=== PATIENT | female | born 1985 | race Caucasian/White ===

== ENCOUNTER 2020-06-28 11:21 | Emergency (ER) | payer MEDICAID, SELFPAY ==
[2020-06-28 11:45] VITALS: BP 163/94; PULSE 77; RESP 16; TEMP 36.8; O2SAT 99; BMI 61.2
--- NOTE | 2020-06-28 12:06 | HMH.EDUTC ---
[facility] [place] Disposition Clinical Impression: Labyrinthitis Qualifiers: Laterality: unspecified laterality Qualified Code(s): H83.09 - Labyrinthitis, unspecified ear Disposition: Home, Self-Care Condition on Discharge: Good Instructions: DI for Labyrinthitis Prescriptions: Meclizine HCl 25 mg PO Q8HP PRN 10 Days #30 tab PRN Reason: Dizziness Transmission Status: Pending to [id number] Referrals: Srinivasa Young JR, MD [Primary Care Provider] - Forms: Work/School Release Time of Disposition: 12:13 Medical Decision Making - Jay Inquiry Pt receiving controlled substance: No [facility] [place] HPI - General Stated complaint: dizzy Time Seen by Provider: 06/28/20 12:06 - History of Present Illness Provider Complaint: Dizziness and nausea when she woke up this am. Started when she rolled over to turn off alarm. [place] like she had gotten off the merry go round. It has improved. Has had one similar episode in the past that resolved on its own. Onset (ago): hour(s) (4) Location: head Relieving factors: none Exacerbating factors: none Associated symptoms: denies other symptoms Treatments prior to arrival: none - Related Data Home Medications Medication Instructions Recorded Confirmed Metoprolol Succinate [Metoprolol 200 mg PO DAILY 06/28/20 06/28/20 Succinate 200mg Tablet*] Omeprazole [Omeprazole 40mg 40 mg PO DAILY 06/28/20 06/28/20 Capsule] Previous Rx's Medication Instructions Recorded Meclizine HCl 25 mg PO Q8HP PRN 10 Days #30 tab 06/28/20 Allergies Allergy/AdvReac Type Severity Reaction Status Date / Time No Known Allergies Allergy Verified 03/28/20 16:23 [facility] History - Hepatitis A Screen Attestation statement:: This patient has been screened for Hepatitis A risk factors. I have reviewed the patient's past medical history: Yes Medical History: Reports:: Asthma, Gastroesophageal Reflux Disease(GERD), Hypertension Laterality Cases: Left: Other Other Surgeries: Yes: - Social History Smoking Status: Former smoker Alcohol Intake: never Occupational Status: employed Housing: house Household Members: family Family Hx:: Cancer, Diabetes, Hypertension, Stroke, Thyroid Disorder ROS Obtained: Yes All systems reviewed & no additional complaints - Neurologic Neurologic: Reports vertigo Physical Exam - General General appearance: alert, in no apparent distress - Head Head exam: normocephalic - Eye Eye exam: Present: PERRL - ENT ENT exam: Present: normal oropharynx - Respiratory Respiratory exam: Present: normal lung sounds bilaterally - Cardiovascular Cardiovascular exam: Present: regular rate, normal rhythm - Neurological Exam Neurological exam: Present: alert, oriented X3 - Psychiatric Psychiatric exam: Present: normal affect, normal mood - Skin Skin exam: Present: warm, dry, intact
[2020-06-28 12:18] VITALS: BP 163/94; PULSE 77; RESP 16; TEMP 36.8; O2SAT 99
== END 2020-06-28 12:20 | disposition home or self-care (01) ==
PROVIDERS: Emergency Provider Physician Assistant; PCP Family Medicine
DX: H83.09 Labyrinthitis, unspecified ear (principal); J45.909 Unspecified asthma, uncomplicated; K21.9 Gastro-esophageal reflux disease without esophagitis; I10 Essential (primary) hypertension; Z79.899 Other long term (current) drug therapy; Z87.891 Personal history of nicotine dependence
CPT/HCPCS: 99202; G0463

== ENCOUNTER 2020-10-01 13:03 | Emergency (ER) | payer MEDICAID, SELFPAY ==
[2020-10-01 13:03] VITALS: BP 151/64; PULSE 51; RESP 18; TEMP 36.7; O2SAT 98; BMI 61.2
--- NOTE | 2020-10-01 13:42 | XR_ITS ---
PROCEDURE: XR WRIST LT MIN 3V CLINICAL INDICATION: PAIN COMPARISON: No exams were available for comparison FINDINGS: No fracture or dislocation. No lytic or blastic change. There is normal mineralization. The joint spaces are well-preserved. No significant degenerative/arthritic changes. No erosive changes evident. Other findings:None. IMPRESSION: No acute findings. Dictated by: Dioni Castillo MD 10/01/2020 15:25 Dioni Castillo MD in [place] 10/01/2020 15:25
[2020-10-01 13:45] VITALS: BP 148/64; PULSE 76; RESP 14; TEMP 37.4; O2SAT 98; BMI 61.2
--- NOTE | 2020-10-01 14:41 | HMH.EDUTC ---
[facility] – [place] Disposition Clinical Impression: Left wrist pain Disposition: Home, Self-Care Condition on Discharge: Good Instructions: DI for Wrist Strain, DI for Wrist Pain Additional Instructions: Rest the extremity, a Elevate the extremity as tolerated while you are resting. Take ibuprofen for pain. I sent in a prescription to your pharmacy. Follow up with Dr. Cook (orthopedics). I put in a referral but you need to call his office and schedule an appointment. Follow up with your regular doctor. GO TO THE ER FOR ANY WORSENING SYMPTOMS Prescriptions: Ibuprofen [Ibuprofen 600mg Tablet] 600 mg PO Q6HP PRN #30 tab PRN Reason: Mild Pain Transmission Status: Received by [facility] Referrals: Srinivasa Young JR, MD [Primary Care Provider] - Oliver Cook MD [Staff Physician] - Time of Disposition: 14:42 Medical Decision Making - Medical Records Medical records reviewed: No: I reviewed the patient's medical records. - Jay Inquiry Pt receiving controlled substance: No Vital Signs: 10/01/20 13:03 10/01/20 13:45 10/01/20 14:43 Temperature 98.1 F 99.3 F 99.3 F Temperature Source Oral Tympanic Oral Pulse Rate 76 Pulse Rate [Right] 51 L 76 Respiratory Rate 18 14 14 Blood Pressure 148/64 H Blood Pressure [Right Arm] 151/64 H 148/64 H Blood Pressure Mean [Right Arm] 93 92 Blood Pressure Source Automatic Cuff Blood Pressure Source [Right Arm] Automatic Cuff Blood Pressure Position Sitting Blood Pressure Position [Right Arm] Sitting 02 Sat by Pulse Oximetry 98 98 Oxygen Delivery Method Room Air Room Air Orders (Tests/Meds): ORDERS Category Date Time Status XR wrist LT min 3V Stat Exams 10/01/20 13:42 Taken - Radiology Data #1 Image(s): Wrist Image Reviewed: Yes I reviewed the patient's radiology image, Yes I have reviewed radiologist's interpretation Preliminary Findings: No Fracture Seen [facility] [place] HPI - General Stated complaint: Lt wrist pain, unknown origin Time Seen by Provider: 10/01/20 13:05 Mode of Arrival: Ambulatory Source of Information: Patient Limitations: No Limitations Description of Symptoms (Recalled from Triage Doc. by RN): Hurt left wrist. Unknown origin. HEENT Symptoms (Recalled from RN notes): No Resp Symptoms (Recalled from RN notes): No Skin Symptoms (Recalled from RN notes): No MS Symptoms (Recalled from RN notes): Yes Functional Status (Recalled from RN notes): wnl - History of Present Illness Provider Complaint: She states that for the past 2 days she has had left wrist pain. She denies any known injury. She states that using her hand and moving her wrist makes the pain worse. - Related Data Home Medications Medication Instructions Recorded Confirmed Metoprolol Succinate [Metoprolol 200 mg PO DAILY 06/28/20 06/28/20 Succinate 200mg Tablet*] Omeprazole [Omeprazole 40mg 40 mg PO DAILY 06/28/20 06/28/20 Capsule] Previous Rx's Medication Instructions Recorded Meclizine HCl 25 mg PO Q8HP PRN 10 Days #30 tab 06/28/20 Ibuprofen [Ibuprofen 600mg 600 mg PO Q6HP PRN #30 tab 10/01/20 Tablet] Allergies Allergy/AdvReac Type Severity Reaction Status Date / Time No Known Allergies Allergy Verified 03/28/20 16:23 - Worker's Comp Is this a Worker's Comp case?: No [facility] History - Hepatitis A Screen Drug use history?: No High risk sexual behaviors?: No History of sexually transmitted infection?: No Currently employed?: No Childcare worker?: No Do you have indoor plumbing?: Yes Do you have electricity?: Yes Attestation statement:: This patient has been screened for Hepatitis A risk factors. I have reviewed the patient's past medical history: Yes Medical History: Reports:: Asthma, Gastroesophageal Reflux Disease(GERD), Hypertension Laterality Cases: Left: Other Other Surgeries: Yes: - Social History Smoking Status: Former smoker Alcohol Intake: never Occupational
[2020-10-01 14:43] VITALS: BP 148/64; PULSE 76; RESP 14; TEMP 37.4; O2SAT 98
== END 2020-10-01 14:57 | disposition home or self-care (01) ==
PROVIDERS: Emergency Provider Nurse Practitioner Family; PCP Family Medicine
DX: M25.532 Pain in left wrist (principal); K21.9 Gastro-esophageal reflux disease without esophagitis; I10 Essential (primary) hypertension; J45.909 Unspecified asthma, uncomplicated
CPT/HCPCS: 73110; 99203; G0463

== ENCOUNTER 2021-02-17 14:01 | Emergency (ER) | payer MEDICAID, SELFPAY ==
[2021-02-17 16:15] VITALS: BP 144/95; PULSE 75; RESP 18; TEMP 37; O2SAT 100; BMI 68.6
[2021-02-17 16:59] VITALS: BP 144/95; PULSE 75; RESP 18; TEMP 37; O2SAT 100
--- NOTE | 2021-03-06 11:09 | HMH.EDUTC ---
[facility] – [place] Disposition Clinical Impression: Exposure to COVID-19 virus Disposition: Home, Self-Care Condition on Discharge: Good Instructions: DI for COVID-19 (Suspected or Confirmed ), Coronavirus Disease 2019, Preventing the Spread of Coronavirus Discharge Instructions Additional Instructions: *Monitor Temp, Over the counter Motrin or Tylenol as directed/as needed Tylenol every 4 hours and Motrin every 6 hours (as long as your family doctor has told you that you can take it) for fever or pain. and straight to ER if unable to lower temp less than 101.0 after medication given *Warm salt water gargles may help to soothe the throat *Throat Lozenges *Warm fluids like tea with honey may help to soothe the throat *Sleep elevated *Humidifier/Vaporizer Follow up IMMEDIATELY for new or worsening symptoms or no Noticeable improvement over the next 48-72 hours. 911 for difficulty breathing or swallowing You were tested for today for COVID19 your test result should be back in the next 24-48 hours, You was given instructions to [facility] for your results if you do not have internet access you may call the [facility] You was given a handout with instructions for Self Quarantine and Self isolation for while you wait on test results and what to do if they are positive If you are positive the Health Dept will be contacting you also Make sure to take your Vitamins Vit. C Vit D and Zinc if you can take them Referrals: Srinivasa Young JR, MD [Primary Care Provider] - As needed Forms: Work/School Release Medical Decision Making - Jay Inquiry Pt receiving controlled substance: No Jay was queried for this patient: No Vital Signs: 02/17/21 16:15 02/17/21 16:59 Temperature 98.6 F 98.6 F Temperature Source Oral Pulse Rate 75 Pulse Rate [Right Brachial] 75 Respiratory Rate 18 18 Blood Pressure 144/95 H Blood Pressure [Right Arm] 144/95 H Blood Pressure Mean [Right Arm] 111 Blood Pressure Source [Right Arm] Automatic Cuff Blood Pressure Position [Right Arm] Sitting 02 Sat by Pulse Oximetry 100 Oxygen Delivery Method Room Air [facility] [place] HPI - General Stated complaint: covid test/exposure Time Seen by Provider: 02/17/21 16:35 Mode of Arrival: Ambulatory Source of Information: Patient Limitations: No Limitations Description of Symptoms (Recalled from Triage Doc. by RN): COVID TEST D/T EXPOSURE HEENT Symptoms (Recalled from RN notes): No Resp Symptoms (Recalled from RN notes): No Skin Symptoms (Recalled from RN notes): No MS Symptoms (Recalled from RN notes): No Functional Status (Recalled from RN notes): WNL - History of Present Illness Provider Complaint: Patient states that she was recently around someone that tested positive for COVID and she is wanting to get tested - Related Data Home Medications Medication Instructions Recorded Confirmed Metoprolol Succinate [Metoprolol 200 mg PO DAILY 06/28/20 06/28/20 Succinate 200mg Tablet*] Omeprazole [Omeprazole 40mg 40 mg PO DAILY 06/28/20 06/28/20 Capsule] Previous Rx's Medication Instructions Recorded Meclizine HCl 25 mg PO Q8HP PRN 10 Days #30 tab 06/28/20 Ibuprofen [Ibuprofen 600mg 600 mg PO Q6HP PRN #30 tab 10/01/20 Tablet] Allergies Allergy/AdvReac Type Severity Reaction Status Date / Time No Known Allergies Allergy Verified 03/28/20 16:23 - Worker's Comp Is this a Worker's Comp case?: No [facility] History - Hepatitis A Screen Drug use history?: No High risk sexual behaviors?: No History of sexually transmitted infection?: No Currently employed?: No Childcare worker?: No Do you have indoor plumbing?: Yes Do you have electricity?: Yes Attestation statement:: This patient has been screened for Hepatitis A risk factors. I have reviewed the patient's past medical history: Yes Medical History: Reports:: Asthma, Gastroesophageal Reflux Disease(GERD), Hypertension Laterality Cases: Left: Other Other Surgeries
== END 2021-02-17 17:05 | disposition home or self-care (01) ==
PROVIDERS: Emergency Provider Nurse Practitioner; PCP Family Medicine
DX: Z20.822 Contact with and (suspected) exposure to COVID-19 (principal)
CPT/HCPCS: 99202; G0463; U0003

== ENCOUNTER 2021-04-16 17:17 | Emergency (ER) | payer MEDICAID, SELFPAY ==
--- NOTE | 2021-04-16 17:21 | XR_ITS ---
PROCEDURE INFORMATION: Exam: XR Left Knee Exam date and time: 04/16/2021 5:21 PM Age: 35 years old Clinical indication: Pain; Knee; Left; Additional info: Knee pain TECHNIQUE: Imaging protocol: XR Left knee. Views: 3 views. Total images: 3 COMPARISON: No relevant prior studies available. FINDINGS: Bones/joints: No fracture. No blastic or lytic lesions. No significant joint effusion is present. Joint spaces are well-maintained. Soft tissues: No periostitis or osteolysis. No gross soft tissue abnormalities. No foreign bodies. Other findings: Normal alignment. IMPRESSION: No acute findings.
[2021-04-16 17:25] VITALS: BP 164/94; PULSE 89; RESP 16; TEMP 36.9; O2SAT 98; BMI 64.2
--- NOTE | 2021-04-16 18:13 | HMH.EDUTC ---
[facility] [place] Disposition Clinical Impression: Knee sprain Qualifiers: Encounter type: initial encounter Involved ligament of knee: unspecified ligament Laterality: left Qualified Code(s): S83.92XA - Sprain of unspecified site of left knee, initial encounter Disposition: Home, Self-Care Condition on Discharge: Good Instructions: How To Perform RICE (Rest, Ice, Compress, Elevate), DI for Knee Pain, Ibuprofen Additional Instructions: *weight bearing as tolerated *RICE, Rest the extremity, Ice 15-20 minutes 3-4 times daily, Compress- wear the ady wrap as discussed as much as possible to help reduce swelling and pain, Elevate the extremity when at rest *Ady wrap is for support and help control swelling, use it except in the shower. Be sure that is not to tight but not to loose either *Elevate when resting *Over the counter Ibuprofen every 6-8 hours as needed for pain an inflammation. If need something more can take Tylenol in between doses of Ibuprofen to help Immediately follow up with your family doctor for new or worsening of symptoms, or no noticeable improvement over the next 3-5 days Return if needed Warm soaks in warm water and epson salt may help with pain Straight to ER if any life threatening symptoms Referrals: Srinivasa Young JR, MD [Primary Care Provider] - As needed Forms: Work/School Release Time of Disposition: 18:52 Medical Decision Making - Jay Inquiry Pt receiving controlled substance: No Jay was queried for this patient: No Vital Signs: 04/16/21 17:25 04/16/21 18:52 Temperature 98.4 F 98.4 F Temperature Source Oral Pulse Rate 89 Pulse Rate [Right Brachial] 89 Respiratory Rate 16 16 Blood Pressure 164/94 H Blood Pressure [Right Arm] 164/94 H Blood Pressure Mean [Right Arm] 117 Blood Pressure Source [Right Arm] Automatic Cuff Blood Pressure Position [Right Arm] Sitting 02 Sat by Pulse Oximetry 98 Oxygen Delivery Method Room Air - Radiology Data #1 Image(s): Knee Image Reviewed: Yes I have reviewed radiologist's interpretation Preliminary Findings: No Fracture Seen IMPRESSION: No acute findings. [facility] [place] HPI - General Stated complaint: left knee pain Time Seen by Provider: 04/16/21 18:13 Mode of Arrival: Ambulatory Source of Information: Patient Limitations: No Limitations Description of Symptoms (Recalled from Triage Doc. by RN): PATIENT C/O LEFT KNEE PAIN. REPORTS THAT SHE TWISTED IT WHILE WALKING A DOG 1.5 WEEKS. AGO HEENT Symptoms (Recalled from RN notes): No Resp Symptoms (Recalled from RN notes): No Skin Symptoms (Recalled from RN notes): No MS Symptoms (Recalled from RN notes): Yes Functional Status (Recalled from RN notes): WNL - History of Present Illness Provider Complaint: Patient states that she was walking the dog about 1.5-2 weeks ago when she twisted her left knee States that ever since she has been having pain on and off with certain ways she moves it States that she was still having pain today so she came in to get it checked out - Related Data Home Medications Medication Instructions Recorded Confirmed Metoprolol Succinate [Metoprolol 200 mg PO DAILY 06/28/20 06/28/20 Succinate 200mg Tablet*] Omeprazole [Omeprazole 40mg 40 mg PO DAILY 06/28/20 06/28/20 Capsule] Previous Rx's Medication Instructions Recorded Meclizine HCl 25 mg PO Q8HP PRN 10 Days #30 tab 06/28/20 Ibuprofen [Ibuprofen 600mg 600 mg PO Q6HP PRN #30 tab 10/01/20 Tablet] Allergies Allergy/AdvReac Type Severity Reaction Status Date / Time No Known Allergies Allergy Verified 03/28/20 16:23 - Worker's Comp Is this a Worker's Comp case?: No [facility] History - Hepatitis A Screen Drug use history?: No High risk sexual behaviors?: No History of sexually transmitted infection?: No Currently employed?: No Childcare worker?: No Do you have indoor plumbing?: Yes Do you have electricity?: Yes Attestation statement:: This patient has been screened for He
[2021-04-16 18:52] VITALS: BP 164/94; PULSE 89; RESP 16; TEMP 36.9; O2SAT 98
== END 2021-04-16 19:05 | disposition home or self-care (01) ==
PROVIDERS: Emergency Provider Nurse Practitioner; PCP Family Medicine
DX: S83.92XA Sprain of unspecified site of left knee, initial encounter (principal); J45.909 Unspecified asthma, uncomplicated; K21.9 Gastro-esophageal reflux disease without esophagitis; I10 Essential (primary) hypertension; X50.1XXA Overexertion from prolonged static or awkward postures, initial encounter; Y93.K1 Activity, walking an animal; Y92.89 Other specified places as the place of occurrence of the external cause
CPT/HCPCS: 73562; 99202; G0463

== ENCOUNTER 2021-04-30 18:32 | Emergency (ER) | payer MEDICAID, SELFPAY ==
[2021-04-30 18:35] VITALS: BP 200/100; PULSE 96; RESP 18; TEMP 37.5; O2SAT 98; BMI 64.0
--- NOTE | 2021-04-30 19:04 | HMH.EDUTC ---
[facility] [place] Disposition Clinical Impression: Viral upper respiratory illness Disposition: Home, Self-Care Condition on Discharge: Good Instructions: DI for Viral Upper Respiratory Infection -- Adult, DI for Cough -- Adult Additional Instructions: *Monitor Temp, Over the counter Motrin or Tylenol as directed/as needed Tylenol every 4 hours and Motrin every 6 hours (as long as your family doctor has told you that you can take it) for fever or pain. and straight to ER if unable to lower temp less than 101.0 after medication given *Warm salt water gargles may help to soothe the throat *Throat Lozenges *Warm fluids like tea with honey may help to soothe the throat *Sleep elevated *Humidifier/Vaporizer Over the counter Coricidin HBP cough and cold may help with your cough and cold symptoms Your throat swab was sent for culture. Those results are typically sent to your primary care. Be sure to follow up in 2-3 days with your family doctor/primary care physician if no improvement so they can review those result and treat if necessary. If you don?t have a primary care doctor, I recommend you get one but in the mean time, you will have to return to a walk in clinic Follow up IMMEDIATELY for new or worsening symptoms or no Noticeable improvement over the next 48-72 hours. 911 for difficulty breathing or swallowing You were tested for today for COVID19 your test result should be back in the next 24-48 hours, you may check your results on the [facility] my health portal if you have trouble logging on or viewing your results you may call You was given a handout with instructions for Self Quarantine and Self isolation for while you wait on test results and what to do if they are positive If you are positive the Health Dept will be contacting you also Make sure to take your Vitamins Vit. C Vit D and Zinc if you can take them Follow up with your Family Doctor as soon as possible for re-evaluation of blood pressure Referrals: Srinivasa Young JR, MD [Primary Care Provider] - As needed Forms: Work/School Release Time of Disposition: 19:13 Medical Decision Making - Jay Inquiry Pt receiving controlled substance: No Jay was queried for this patient: No Vital Signs: 04/30/21 18:35 Temperature 99.5 F Temperature Source Oral Pulse Rate [Left Brachial] 96 H Respiratory Rate 18 Blood Pressure [Left Arm] 200/100 H Blood Pressure Mean [Left Arm] 133 Blood Pressure Source [Left Arm] Automatic Cuff Blood Pressure Position [Left Arm] Sitting 02 Sat by Pulse Oximetry 98 Oxygen Delivery Method Room Air - Lab Data Lab results reviewed: Yes: I reviewed the patient's lab results. [facility] [place] HPI - General Stated complaint: fever, chills, runny nose, congestion Time Seen by Provider: 04/30/21 19:04 Mode of Arrival: Ambulatory Source of Information: Patient Limitations: No Limitations Description of Symptoms (Recalled from Triage Doc. by RN): PATIENT C/O FEVER, CHILLS, RUNNY NOSE, DRY COUGH, CONGESTION AND HEADACHE THAT STARTED LAST NIGHT HEENT Symptoms (Recalled from RN notes): Yes Resp Symptoms (Recalled from RN notes): Yes Skin Symptoms (Recalled from RN notes): No MS Symptoms (Recalled from RN notes): No Functional Status (Recalled from RN notes): WNL - History of Present Illness Provider Complaint: Patient states that she started feeling bad yesterday States that she has been having cough, runny nose, scratchy throat nasal congestion and headache States that today she was still feeling bad so she came in to get checked States that she feels like she may have the flu - Related Data Home Medications Medication Instructions Recorded Confirmed Metoprolol Succinate [Metoprolol 200 mg PO DAILY 06/28/20 04/30/21 Succinate 200mg Tablet*] Omeprazole [Omeprazole 40mg 40 mg PO DAILY 06/28/20 04/30/21 Capsule] Allergies Allergy/AdvReac Type Severity Reaction Status Date / Time No Known Allergies Allergy Verified 03/28/20 16:23
[2021-04-30 19:06] LABS: UTC Influenza A Antigen Negative (Negative); UTC Strep Screen (Rapid) Negative (Negative)
[2021-04-30 19:07] LABS: UTC Influenza B Antigen Negative (Negative)
[2021-04-30 19:11] VITALS: BP 153/93; PULSE 96; RESP 18; TEMP 37.5; O2SAT 98
== END 2021-04-30 19:24 | disposition home or self-care (01) ==
PROVIDERS: Emergency Provider Nurse Practitioner; PCP Family Medicine
DX: J06.9 Acute upper respiratory infection, unspecified (principal); K21.9 Gastro-esophageal reflux disease without esophagitis; I10 Essential (primary) hypertension; J45.909 Unspecified asthma, uncomplicated
CPT/HCPCS: 87804; 87880; 99203; G0463

== ENCOUNTER 2021-05-03 15:27 | Emergency (ER) | payer MEDICAID, SELFPAY ==
[2021-05-03 15:51] VITALS: BP 147/86; PULSE 81; RESP 18; TEMP 37.1; O2SAT 95; BMI 64.6
[2021-05-03 16:03] VITALS: BP 147/86; PULSE 81; RESP 18; TEMP 37.1
[2021-05-03 16:08] LABS: UTC Strep Screen (Rapid) Negative (Negative)
--- NOTE | 2021-05-03 16:08 | HMH.EDUTC ---
[facility] [place] Impression: Viral syndrome Disposition: Home, Self-Care Condition on Discharge: Good Instructions: DI for Viral Syndrome, DI for COVID-19 (Suspected or Confirmed ), Preventing the Spread of Coronavirus Discharge Instructions Additional Instructions: Drink plenty of fluids. Take tylenol or ibuprofen for pain or fever. Take the medications as directed. Follow up with your regular doctor. GO TO THE ER FOR ANY WORSENING SYMPTOMS Quarantine until you know the results of your covid-19 test. If it is positive, the health department should call you and give you further instructions about your length of Quarantine and other things. Notify your school or workplace of your results and follow their instructions regarding return to work/school. Prescriptions: Ondansetron [Zofran 4mg ODT] 4 mg PO Q8HP PRN #12 tab PRN Reason: Nausea Transmission Status: Received by [facility] Referrals: Srinivasa Young JR, MD [Primary Care Provider] - Forms: Work/School Release Time of Disposition: 17:02 Medical Decision Making - Medical Records Medical records reviewed: No: I reviewed the patient's medical records. - Jay Inquiry Pt receiving controlled substance: No Vital Signs: 05/03/21 15:51 05/03/21 16:03 Temperature 98.7 F 98.7 F Temperature Source Oral Pulse Rate 81 Pulse Rate [Left] 81 Respiratory Rate 18 18 Blood Pressure 147/86 H Blood Pressure [Right Arm] 147/86 H Blood Pressure Mean [Right Arm] 106 02 Sat by Pulse Oximetry 95 - Lab Data Lab results reviewed: Yes: I reviewed the patient's lab results. Lab Results 05/03/21 15:56: Chlamy pneumoniae PCR Not detected, Adenovirus (PCR) Not detected, B. pertussis DNA (PCR) Not detected, Coronavirus OC43 (PCR) Not detected, Coronavirus HKU1 (PCR) Not detected, Coronavirus 229E (PCR) Not detected, SARS-CoV-2 (PCR) Detected A, Coronavirus NL63 (PCR) Not detected, Human Metapneumovir PCR Not detected, Influenza A (H1) PCR Not detected, Influ A (H1N1/09) PCR Not detected, Influenza A (H3) PCR Not detected, Influenza Type A (PCR) Not detected, Influenza Type B (PCR) Not detected, M. pneumoniae (PCR) Not detected, Parainfluenza 1 (PCR) Not detected, Parainfluenza 2 (PCR) Not detected, Parainfluenza 3 (PCR) Not detected, Parainfluenza 4 (PCR) Not detected, RSV (PCR) Not detected, Entero/Rhino (PCR) Not detected 05/03/21 16:00: Strep Scn Rapid Clinic Negative Orders (Tests/Meds): ORDERS Category Date Time Status Strep Screen Confirmation Stat Micro 05/03/21 16:[address] [facility] [place] - General Stated complaint: covid test negative , getting sicker Time Seen by Provider: 05/03/21 16:08 Mode of Arrival: Ambulatory Source of Information: Patient Limitations: No Limitations Description of Symptoms (Recalled from Triage Doc. by RN): pt c/o sore throat, cough, soa, loss of taste and smell. pt was exposed to covid five days ago. pt tested negative for covid a few days ago. however, pt states she is continually feeling worse. HEENT Symptoms (Recalled from RN notes): Yes (sore throat) Resp Symptoms (Recalled from RN notes): Yes (soa and cough) Skin Symptoms (Recalled from RN notes): No MS Symptoms (Recalled from RN notes): No Functional Status (Recalled from RN notes): wnl - History of Present Illness Provider Complaint: She states that she is feeling worse since her last visit here last week. She was tested for covid-19 last week and it was negative. She was started on azithromycin and oral steroids then. She has took them as prescribed and she states that she is feeling worse instead of better. She has a history of asthma. She is using her inhalers as prescribed. She denies shortness of breath. - Related Data Home Medications Medication Instructions Recorded Confirmed Metoprolol Succinate [Metoprolol 200 mg PO DAILY 06/28/20 04/30/21 Succinate 200mg Tablet*] Omeprazole [Omeprazole 40mg 40 m
[2021-05-03 16:15] LABS: Adenovirus,PCR Not Detected (NotDetected); Bordetella Pertussis Not Detected (NotDetected); Chlamydophila Pneumoniae, PCR Not Detected (NotDetected); Coronavirus 229E Not Detected (NotDetected); Coronavirus NL63 Not Detected (NotDetected); Coronavirus OC43 Not Detected (NotDetected); Coronovirus HKU1,PCR Not Detected (NotDetected); Human Metapneumovirus Not Detected (NotDetected); Influenza A, PCR Not Detected (NotDetected); Influenza AH1, 2009 Not Detected (NotDetected); Influenza AH1, PCR Not Detected (NotDetected); Influenza AH3,PCR Not Detected (NotDetected); Influenza B, PCR Not Detected (NotDetected); Mycoplasma Pneumoniae, PCR Not Detected (NotDetected); Parainfluenza 1, PCR Not Detected (NotDetected); Parainfluenza 2, PCR Not Detected (NotDetected); Parainfluenza 3, PCR Not Detected (NotDetected); Parainfluenza 4, PCR Not Detected (NotDetected); Respiratory Syncytial Virus Not Detected (NotDetected); Rhinovirus/Enterovirus Not Detected (NotDetected)
[2021-05-03 18:33] LABS: Coronavirus 19, PCR Detected (NotDetected)
== END 2021-05-03 17:11 | disposition home or self-care (01) ==
PROVIDERS: Emergency Provider Nurse Practitioner Family; PCP Family Medicine
DX: U07.1 COVID-19 (principal); B34.9 Viral infection, unspecified; J45.909 Unspecified asthma, uncomplicated; K21.9 Gastro-esophageal reflux disease without esophagitis; I10 Essential (primary) hypertension
CPT/HCPCS: 87581; 87632; 87798; 87880; 99203; C9803; G0463; U0003; U0005

== ENCOUNTER → 2021-05-12 18:02 | Outpatient (CLI) | payer MEDICAID, SELFPAY ==
--- NOTE | 2021-05-14 12:47 | PC.NURSE ---
notified pt of positive covid result at this time
== END ==
PROVIDERS: PCP Family Medicine; Visit Provider Nurse Practitioner Family
DX: U07.1 COVID-19 (principal)
CPT/HCPCS: C9803; U0003; U0005

== ENCOUNTER 2021-05-28 16:07 | Emergency (ER) | payer MEDICAID, SELFPAY ==
[2021-05-28 16:25] VITALS: BP 163/97; PULSE 86; RESP 19; TEMP 36.8; O2SAT 98; BMI 59.5
--- NOTE | 2021-05-28 16:54 | HMH.EDUTC ---
[facility] [place] Clinical Impression: Ear problem Qualifiers: Laterality: bilateral Qualified Code(s): H93.93 - Unspecified disorder of ear, bilateral Disposition: Home, Self-Care Condition on Discharge: Good Instructions: Methylprednisolone, Fluticasone Nasal [place] Additional Instructions: Take medication as prescribed Follow up with Family Doctor if no improvement or any worsening of symptoms Return if needed Straight to ER if any life threatening symptoms Prescriptions: Fluticasone Propionate [Flonase 50mcg nasal spray 16gm] 1 spr NS DAILY #1 each Transmission Status: Pending to [facility] methylPREDNISolone [Medrol 4mg tab] 4 mg PO DIRECTED #21 tab Transmission Status: Pending to [facility] Referrals: Sriniavsa Young JR, MD [Primary Care Provider] - As needed Time of Disposition: 16:58 Medical Decision Making - Jay Inquiry Pt receiving controlled substance: No Jay was queried for this patient: No Vital Signs: 05/28/21 16:25 Temperature 98.2 F Temperature Source Oral Pulse Rate [Right Brachial] 86 Respiratory Rate 19 Blood Pressure [Right Arm] 163/97 H Blood Pressure Mean [Right Arm] 119 Blood Pressure Source [Right Arm] Automatic Cuff Blood Pressure Position [Right Arm] Sitting 02 Sat by Pulse Oximetry 98 Oxygen Delivery Method Room Air Medical Decision Narrative: Patient reports that she has taken Medrol dose pack in the past without complication or reactions [facility] [place] - General Stated complaint: muffled hearing in ears/stopped up Time Seen by Provider: 05/28/21 16:54 Mode of Arrival: Ambulatory Source of Information: Patient Limitations: No Limitations Description of Symptoms (Recalled from Triage Doc. by RN): PATIENT C/O BILATERAL EAR PAIN X 2 DAYS HEENT Symptoms (Recalled from RN notes): Yes Resp Symptoms (Recalled from RN notes): No Skin Symptoms (Recalled from RN notes): No MS Symptoms (Recalled from RN notes): No Functional Status (Recalled from RN notes): WNL - History of Present Illness Provider Complaint: Patient states that she feels like she has some fluid in her ears or they are stopped up States that she hasnt been able to hear well and they feel full so she came in to get checked - Related Data Home Medications Medication Instructions Recorded Confirmed Metoprolol Succinate [Metoprolol 200 mg PO DAILY 06/28/20 05/28/21 Succinate 200mg Tablet*] Omeprazole [Omeprazole 40mg 40 mg PO DAILY 06/28/20 05/28/21 Capsule] Previous Rx's Medication Instructions Recorded Azithromycin [Z-Kenneth 250mg Tab] 250 mg PO DIRECTED #6 tab 05/01/21 methylPREDNISolone [Medrol 4mg 4 mg PO DIRECTED #21 tab 05/01/21 tab] Ondansetron [Zofran 4mg ODT] 4 mg PO Q8HP PRN #12 tab 05/03/21 Fluticasone Propionate [Flonase 1 spr NS DAILY #1 each 05/28/21 50mcg nasal spray 16gm] methylPREDNISolone [Medrol 4mg 4 mg PO DIRECTED #21 tab 05/28/21 tab] Allergies Allergy/AdvReac Type Severity Reaction Status Date / Time No Known Allergies Allergy Verified 03/28/20 16:23 - Worker's Comp Is this a Worker's Comp case?: No [facility] History - Hepatitis A Screen Drug use history?: No High risk sexual behaviors?: No History of sexually transmitted infection?: No Currently employed?: No Childcare worker?: No Do you have indoor plumbing?: Yes Do you have electricity?: Yes Attestation statement:: This patient has been screened for Hepatitis A risk factors. I have reviewed the patient's past medical history: Yes Medical History: Reports:: Asthma, Gastroesophageal Reflux Disease(GERD), Hypertension Laterality Cases: Left: Other Other Surgeries: Yes: - Social History Smoking Status: Former smoker Alcohol Intake: never Occupational Status: other Housing: house Household Members: family Family Hx:: Cancer, Diabetes, Hypertension, Stroke, Thyroid Disorder ROS Obtained: Yes All systems reviewed & no
[2021-05-28 17:15] VITALS: BP 163/97; PULSE 86; RESP 19; TEMP 36.8; O2SAT 98
== END 2021-05-28 17:19 | disposition home or self-care (01) ==
PROVIDERS: Emergency Provider Nurse Practitioner; PCP Family Medicine
DX: H92.03 Otalgia, bilateral (principal); H93.93 Unspecified disorder of ear, bilateral; J45.909 Unspecified asthma, uncomplicated; I10 Essential (primary) hypertension; K21.9 Gastro-esophageal reflux disease without esophagitis; Z79.899 Other long term (current) drug therapy
CPT/HCPCS: 99202; G0463

== ENCOUNTER 2021-08-07 00:02 | Emergency (ER) | payer MEDICAID, SELFPAY ==
[2021-08-07 00:05] VITALS: BP 172/80; PULSE 89; RESP 16; TEMP 36.9; O2SAT 99; BMI 64.2
[2021-08-07 00:37] VITALS: BMI 64.2
--- NOTE | 2021-08-07 00:46 | HMH.EDHA ---
ED Disposition Clinical Impression: Sinusitis Qualifiers: Sinusitis location: maxillary Chronicity: acute Recurrence: not specified as recurrent Qualified Code(s): J01.00 - Acute maxillary sinusitis, unspecified Disposition: Home, Self-Care Condition on Discharge: Good Instructions: DI for Sinusitis Additional Instructions: use meds and see pcp for follow up Prescriptions: cephALEXin [cephALEXin 500mg capsule*] 500 mg PO TID #30 cap Transmission Status: Pending to [facility] predniSONE [Prednisone 20mg Tab] 20 mg PO BID #10 tab Transmission Status: Pending to [facility] Referrals: Srinivasa Young JR, MD [Primary Care Provider] - - Critical Care Critical Care Time: No Attestation: On 08/07/21, the high probability of a clinically significant, sudden or life threatening deterioration of the following system(s) required my full and direct attention, intervention and personal management. The time I documented below is in addition to time spent performing reported procedures but includes the following listed in this critical care notation. Medical Decision Making - Medical Records Medical records reviewed: Yes: I reviewed the patient's medical records. - Jay Inquiry Pt receiving controlled substance: No Vital Signs: 08/07/21 00:05 Temperature 98.4 F Temperature Source Oral Pulse Rate [Left] 89 Respiratory Rate 16 Blood Pressure [Left Arm] 172/80 H Blood Pressure Mean [Left Arm] 110 02 Sat by Pulse Oximetry 99 - Lab Data Lab results reviewed: Yes: I reviewed the patient's lab results. Lab Results 08/07/21 01:05: WBC 7.9, RBC 4.11 L, Hgb 10.5 L, Hct 32.9 L, MCV 80.0 L, MCH 25.7 L, MCHC 32.1, RDW 16.6, Plt Count 226, MPV 7.1 L, Neut % (Auto) 70.4, Lymph % (Auto) 21.2, Hart % (Auto) 6.2, Eos % (Auto) 1.6, Baso % (Auto) 0.5, Neut # (Auto) 5.6, Lymph # (Auto) 1.7, Hart # (Auto) 0.5, Eos # (Auto) 0.1, Baso # (Auto) 0.0, ESR 62 H 08/07/21 01:05: Sodium 135 L, Potassium 3.8, Chloride 104, Carbon Dioxide 26, Anion Gap 8.8, BUN 9, Creatinine 0.60, Estimated Creat Clear 133, Estimated GFR 112, Est GFR ( Amer) 135, Glucose 119 H, Calcium 8.6, Total Bilirubin 0.6, AST 27, ALT 19, Alkaline Phosphatase 74, C-Reactive Protein 29.6 H, Total Protein 6.8, Albumin 3.9, Globulin 2.9, Albumin/Globulin Ratio 1.3, Procalcitonin 0.033 08/07/21 01:20: Urine Color Yellow, Urine Appearance Clear, Urine pH 6.0, Ur Specific Br[place]on >= 1.030, Urine Protein Trace, Urine Glucose (UA) Negative, Urine Ketones Negative, Urine Blood Negative, Urine Nitrate Negative, Urine Bilirubin Negative, Urine Urobilinogen 0.2, Ur Leukocyte Esterase Negative, Urine WBC 3-5, Ur Squamous Epith Cells 5-10, Urine Bacteria 1+, Urine Mucus 1+ 08/07/21 01:20: Urine HCG, Qual Negative 08/07/21 01:30: SARS-CoV-2 (PCR) Not detected, Influenza A Untype (PCR) Not detected, Influenza Type B (PCR) Not detected Result diagrams: 08/07/21 01:05 08/07/21 01:05 - Radiology Data #1 Image(s): Other (sinus) Image Reviewed: Yes I have reviewed radiologist's interpretation Preliminary Findings: Abnormal Medical Decision Narrative: has acute sinusitis with stable exam and labs Headache HPI - General Chief Complaint: Headache Stated Complaint: PEREZ,sore throat,head congestion Time Seen by Provider: 08/07/21 00:46 Mode of Arrival: Ambulatory Source of Information: Patient, Medical Record Limitations: No Limitations Description of Symptoms (Recalled from ER Triage Doc. by RN): pt states that wednesday she was smelling a very chemical smell that noone else could smell and then she woke up today with a headache that felt like a sinus headache the pt did report to have taken advil at 8pm this date. pt also stated that she didnt take any sinus meds because she is on bp meds and did not know what she could take - History of Present Illness HPI Narrative: sinus congestion with assoc perez with no fever or bleeding - no other
--- NOTE | 2021-08-07 00:52 | XR_ITS ---
PROCEDURE INFORMATION: Exam: XR Sinus Exam date and time: 08/07/2021 12:52 AM Age: 36 years old Clinical indication: Pain; Patient HX: Headache, congestion, altered smell. TECHNIQUE: Imaging protocol: XR of the sinuses and paranasal structures. Views: Minimum of 3 views. Total images: 3 COMPARISON: No relevant prior studies available. FINDINGS: Sinuses: Peripheral mucosal thickening in the maxillary sinuses suggesting sinus inflammatory disease. No fluid levels. The frontal, ethmoid, and sphenoid sinuses appear grossly clear. Mastoid air cells are clear. Bones/joints: No osseous abnormalities. Soft tissues: Unremarkable. IMPRESSION: Mucosal thickening in the maxillary sinuses suggesting sinus inflammatory disease. No fluid levels.
[2021-08-07 01:34] LABS: Microscopic, Urine URINE MICROSCOPIC (MICROSCOPIC)
[2021-08-07 01:34] LABS: Coronavirus 19, PCR Not Detected (NotDetected); Influenza A, PCR Not Detected (NotDetected); Influenza B, PCR Not Detected (NotDetected)
[2021-08-07 01:40] LABS: Basophils % 0.5 % (0.1-2.0); Eosinophils # 0.1 K/mm3 (0.0-0.4); Eosinophils % 1.6 % (0.1-12.0); Hematocrit 32.9 % (37.0-47.0); Hemoglobin 10.5 g/dL (12.2-16.2); Lymphocytes # 1.7 K/mm3 (0.7-4.5); Lymphocytes % 21.2 % (10-50); Mean Corpuscular HGB Conc 32.1 g/dL (31.8-35.4); Mean Corpuscular Hemoglobin 25.7 pg (27.0-31.2); Mean Platelet Volume 7.1 fl (7.4-10.4); Monocytes # 0.5 K/mm3 (0.1-1.0); Monocytes % 6.2 % (1.7-9.3); Neutrophils # 5.6 K/mm3 (1.8-7.8); Neutrophils % 70.4 % (37.0-80.0); Platelet Count 226 K/mm3 (142-424); Red Blood Count 4.11 M/mm3 (4.20-5.40); Red Cell Distribution Width 16.6 % (11.5-17.5); White Blood Count 7.9 K/mm3 (4.8-10.8)
[2021-08-07 01:44] LABS: Alanine Aminotransferase 19 U/L (12-78); Albumin Level 3.9 g/dl (3.5-5.0); Albumin/Globulin Ratio 1.3 (1.1-1.8); Alkaline Phosphatase 74 U/L (38-126); Anion Gap 8.8 mEq/L (5-15); Aspartate Amino Transferase 27 U/L (14-36); Bilirubin,Total 0.6 mg/dl (0.2-1.3); Blood Urea Nitrogen 9 mg/dl (7-17); Calcium 8.6 mg/dl (8.4-10.2); Carbon Dioxide 26 mmol/L (22.0-30.0); Chloride 104 mmol/L (98-107); Creatinine Clearance Estimated 133 mL/min (50-200); Estimated Glomerular Filt Rate 112 ml/min (>60); GFR (African American) 135 ML/MIN (>60); Globulin 2.9 g/dL (1.3-3.2); Glucose 119 mg/dl (74-100); Potassium 3.8 mmoL/L (3.5-5.1); Sodium 135 mmol/L (136-145); Total Protein,Serum 6.8 g/dl (6.3-8.2)
[2021-08-07 01:47] LABS: Appearance,Urine CLEAR (Clear); Bilirubin,Urine Negative (Negative); Blood, Urine Negative (Negative); Color,Urine YELLOW (Yellow); Glucose,Urine (UA) Negative (Negative); Ketones,Urine Negative (Negative); Leukocyte Esterase,Urine Negative (Negative); Nitrate,Urine Negative (Negative); Protein,Urine TRACE (Negative); Specific Gravity, Urine >= 1.030 (1.005-1.030); Urobilinogen,Urine 0.2 EU/dl (0.2)
[2021-08-07 01:49] LABS: C-Reactive Protein 29.6 mg/L (0-4)
[2021-08-07 01:50] LABS: Urine Pregnancy, HCG Qual. Negative (Negative)
[2021-08-07 02:03] LABS: Procalcitonin 0.033 ng/mL (0.0-2.0)
[2021-08-07 02:13] LABS: Erythrocyte Sedimentation Rate 62 mm/hr (0-20)
[2021-08-07 02:16] LABS: Bacteria,Urine 1+ /lpf; Mucus,Urine 1+ /lpf
[2021-08-07 02:53] VITALS: BP 147/54; PULSE 63; RESP 16; TEMP 37.1; O2SAT 97
== END 2021-08-07 02:56 | disposition home or self-care (01) ==
PROVIDERS: Emergency Provider Emergency Medicine; PCP Family Medicine
DX: J01.00 Acute maxillary sinusitis, unspecified (principal); I10 Essential (primary) hypertension; J45.909 Unspecified asthma, uncomplicated; K21.9 Gastro-esophageal reflux disease without esophagitis; R51.9 Headache, unspecified; Z79.899 Other long term (current) drug therapy
CPT/HCPCS: 70220; 80053; 81001; 81025; 84145; 85025; 85651; 86140; 99283; C9803; U0003; U0005

== ENCOUNTER 2021-10-26 17:27 | Emergency (ER) | payer MEDICAID, SELFPAY ==
[2021-10-26 18:20] VITALS: BP 151/93; PULSE 84; RESP 19; TEMP 36.8; O2SAT 99; BMI 68.6
--- NOTE | 2021-10-26 18:44 | HMH.EDUTC ---
[facility] [place] Clinical Impression: Exposure to COVID-19 virus Disposition: Home, Self-Care Condition on Discharge: Good Instructions: Preventing the Spread of Coronavirus Discharge Instructions Additional Instructions: covid swab was sent to lab, call tomorrow for results. self isolate until test results are known to be negative Referrals: Srinivasa Young JR, MD [Primary Care Provider] - Forms: Work/School Release Time of Disposition: 18:46 Medical Decision Making - Jay Inquiry Pt receiving controlled substance: No Orders (Tests/Meds): ORDERS Category Date Time Status Covid-19 Nasal PCR ([facility]) Routine Lab 10/26/21 18:32 Ordered [facility] [place] HPI - General Chief complaint: [facility]gent [facility] Stated complaint: covid test Time Seen by Provider: 10/26/21 18:44 Mode of Arrival: Ambulatory Source of Information: Patient Limitations: No Limitations - History of Present Illness Provider Complaint: 36 yr old male presnets for covid test. was exposed no symptoms - Related Data Home Medications Medication Instructions Recorded Confirmed Metoprolol Succinate [Metoprolol 200 mg PO DAILY 06/28/20 05/28/21 Succinate 200mg Tablet*] Omeprazole [Omeprazole 40mg 40 mg PO DAILY 06/28/20 05/28/21 Capsule] Previous Rx's Medication Instructions Recorded Azithromycin [Z-Kenneth 250mg Tab] 250 mg PO DIRECTED #6 tab 05/01/21 methylPREDNISolone [Medrol 4mg 4 mg PO DIRECTED #21 tab 05/01/21 tab] Ondansetron [Zofran 4mg ODT] 4 mg PO Q8HP PRN #12 tab 05/03/21 Fluticasone Propionate [Flonase 1 spr NS DAILY #1 each 05/28/21 50mcg nasal spray 16gm] methylPREDNISolone [Medrol 4mg 4 mg PO DIRECTED #21 tab 05/28/21 tab] cephALEXin [cephALEXin 500mg 500 mg PO TID #30 cap 08/07/21 capsule*] predniSONE [Prednisone 20mg 20 mg PO BID #10 tab 08/07/21 Tab] Allergies Allergy/AdvReac Type Severity Reaction Status Date / Time No Known Allergies Allergy Verified 03/28/20 16:23 [facility] History - Hepatitis A Screen Attestation statement:: This patient has been screened for Hepatitis A risk factors. I have reviewed the patient's past medical history: Yes Medical History: Reports:: Asthma, Gastroesophageal Reflux Disease(GERD), Hypertension Laterality Cases: Left: Other Other Surgeries: Yes: - Social History Smoking Status: Former smoker Alcohol Intake: never Occupational Status: other Housing: house Household Members: family Family Hx:: Cancer, Diabetes, Hypertension, Stroke, Thyroid Disorder ROS Obtained: Yes Systems reviewed as appropriate & no additional complaints - Constitutional Constitutional: Reports system reviewed and no additional complaints, except as docu, Denies fever(s) - Eyes Eyes: Reports system reviewed and no additional complaints, except as docu, Denies blurry vision - ENT Ears, Nose, Mouth, and Throat: Reports system reviewed and no additional complaints, except as docu, Denies bleeding gums - Cardiovascular Cardiovascular: Reports system reviewed and no additional complaints, except as docu, Denies chest pain - Respiratory Respiratory: Reports system reviewed and no additional complaints, except as docu, Denies shortness of breath - Gastrointestinal Gastrointestingal: Reports: system reviewed and no additional complaints, except as docu. Denies: abdominal pain - Musculoskeletal Musculoskeletal: Reports system reviewed and no additional complaints, except as docu, Denies joint pain - Integumentary/Breasts Skin/Breast: Reports system reviewed and no additional complaints, except as docu, Denies rash - Neurologic Neurologic: Reports system reviewed and no additional complaints, except as docu, Denies dizziness - Endocrine Endocrine: Reports system reviewed and no additional complaints, except as docu, Denies fatigue - Hematologic/Lymphatic Henatologic/Lymphatic: Reports system reviewed and no additional complaints, e
[2021-10-26 18:58] VITALS: BP 151/93; PULSE 84; RESP 19; TEMP 36.8; O2SAT 99
== END 2021-10-26 19:00 | disposition home or self-care (01) ==
PROVIDERS: Emergency Provider Nurse Practitioner Family; PCP Family Medicine
DX: Z03.89 Encounter for observation for other suspected diseases and conditions ruled out (principal); Z20.822 Contact with and (suspected) exposure to COVID-19; Z79.82 Long term (current) use of aspirin; Z79.899 Other long term (current) drug therapy; Z87.891 Personal history of nicotine dependence; Z82.49 Family history of ischemic heart disease and other diseases of the circulatory system; Z80.9 Family history of malignant neoplasm, unspecified; Z83.438 Family history of other disorder of lipoprotein metabolism and other lipidemia; Z83.3 Family history of diabetes mellitus
CPT/HCPCS: 99213; C9803; G0463; U0003; U0005

== ENCOUNTER 2022-01-17 13:24 | Emergency (ER) | payer MEDICAID, SELFPAY ==
[2022-01-17 13:35] VITALS: BP 148/96; PULSE 86; RESP 18; TEMP 36.8; O2SAT 98; BMI 62.4
--- NOTE | 2022-01-17 13:47 | HMH.EDUTC ---
[facility] [place] Impression: Exposure to COVID-19 virus Disposition: Home, Self-Care Condition on Discharge: Good Instructions: DI for COVID-19 (Suspected or Confirmed ) Additional Instructions: covid swab was sent to lab, call tomorrow for results. self isolate until test results are known to be negative Referrals: Srinivasa Young JR, MD [Primary Care Provider] - Time of Disposition: 13:49 Medical Decision Making - Jay Inquiry Pt receiving controlled substance: No Orders (Tests/Meds): ORDERS Category Date Time Status Covid-19 Nasal PCR ([facility]) Routine Lab 01/17/22 13:30 [place] [facility] [place] - General Chief complaint: Urgent [facility] Stated complaint: covid test, covid exposure Time Seen by Provider: 01/17/22 13:47 Mode of Arrival: Ambulatory Source of Information: Patient Limitations: No Limitations - History of Present Illness Provider Complaint: 36 yr old female presents for covid test. tested positive. pt states no symptoms - Related Data Home Medications Medication Instructions Recorded Confirmed Metoprolol Succinate [Metoprolol 200 mg PO DAILY 06/28/20 05/28/21 Succinate 200mg Tablet*] Omeprazole [Omeprazole 40mg 40 mg PO DAILY 06/28/20 05/28/21 Capsule] Previous Rx's Medication Instructions Recorded Azithromycin [Z-Kenneth 250mg Tab] 250 mg PO DIRECTED #6 tab 05/01/21 methylPREDNISolone [Medrol 4mg 4 mg PO DIRECTED #21 tab 05/01/21 tab] Ondansetron [Zofran 4mg ODT] 4 mg PO Q8HP PRN #12 tab 05/03/21 Fluticasone Propionate [Flonase 1 spr NS DAILY #1 each 05/28/21 50mcg nasal spray 16gm] methylPREDNISolone [Medrol 4mg 4 mg PO DIRECTED #21 tab 05/28/21 tab] cephALEXin [cephALEXin 500mg 500 mg PO TID #30 cap 08/07/21 capsule*] predniSONE [Prednisone 20mg 20 mg PO BID #10 tab 08/07/21 Tab] Allergies Allergy/AdvReac Type Severity Reaction Status Date / Time No Known Allergies Allergy Verified 03/28/20 16:23 [facility] History - Hepatitis A Screen Attestation statement:: This patient has been screened for Hepatitis A risk factors. I have reviewed the patient's past medical history: Yes Medical History: Reports:: Asthma, Gastroesophageal Reflux Disease(GERD), Hypertension Laterality Cases: Left: Other Other Surgeries: Yes: - Social History Smoking Status: Former smoker Alcohol Intake: never Occupational Status: other Housing: house Household Members: family Family Hx:: Cancer, Diabetes, Hypertension, Stroke, Thyroid Disorder ROS Obtained: Yes Systems reviewed as appropriate & no additional complaints - Constitutional Constitutional: Reports system reviewed and no additional complaints, except as docu, Denies fever(s) - Eyes Eyes: Reports system reviewed and no additional complaints, except as docu, Denies dry eyes - ENT Ears, Nose, Mouth, and Throat: Reports system reviewed and no additional complaints, except as docu, Denies sore throat - Cardiovascular Cardiovascular: Reports system reviewed and no additional complaints, except as docu, Denies chest pain - Respiratory Respiratory: Reports system reviewed and no additional complaints, except as docu, Denies change in phlegm color - Gastrointestinal Gastrointestingal: Reports: system reviewed and no additional complaints, except as docu. Denies: abdominal pain - Musculoskeletal Musculoskeletal: Reports system reviewed and no additional complaints, except as docu, Denies joint pain - Integumentary/Breasts Skin/Breast: Reports system reviewed and no additional complaints, except as docu, Denies rash - Neurologic Neurologic: Reports system reviewed and no additional complaints, except as docu, Denies dizziness - Endocrine Endocrine: Reports system reviewed and no additional complaints, except as docu, Denies fatigue - Hematologic/Lymphatic Henatologic/Lymphatic: Reports system reviewed and no additional complaints, except as
[2022-01-17 13:51] VITALS: BP 148/96; PULSE 86; RESP 18; TEMP 36.8; O2SAT 98
== END 2022-01-17 13:53 | disposition home or self-care (01) ==
PROVIDERS: Emergency Provider Nurse Practitioner Family; PCP Family Medicine
DX: Z20.822 Contact with and (suspected) exposure to COVID-19 (principal)
CPT/HCPCS: 99212; C9803; G0463; U0003; U0005

== ENCOUNTER 2022-01-27 23:57 | Emergency (ER) | payer MEDICAID, SELFPAY ==
[2022-01-28 00:15] LABS: Influenza A, PCR Not Detected (NotDetected); Influenza B, PCR Not Detected (NotDetected); Microscopic, Urine URINE MICROSCOPIC (MICROSCOPIC)
[2022-01-28 00:24] LABS: Appearance,Urine CLEAR (Clear); Bilirubin,Urine Negative (Negative); Blood, Urine Negative (Negative); Color,Urine YELLOW (Yellow); Glucose,Urine (UA) Negative (Negative); Ketones,Urine Negative (Negative); Leukocyte Esterase,Urine Negative (Negative); Nitrate,Urine Negative (Negative); Protein,Urine Negative (Negative); Urobilinogen,Urine 0.2 EU/dl (0.2)
[2022-01-28 00:25] LABS: Urine Pregnancy, HCG Qual. Negative (Negative)
[2022-01-28 00:29] LABS: Squamous Epithelial Cell,Urine Occasional #/hpf (0-5); WBC,Urine Occasional #/hpf (0-3)
[2022-01-28 00:31] VITALS: BP 156/91; BP 158/85; PULSE 86; PULSE 88; RESP 18; TEMP 36.6; O2SAT 95; O2SAT 99; BMI 64.2
--- NOTE | 2022-01-28 00:37 | HMH.EDURI ---
ED Disposition Clinical Impression: COVID-19 Disposition: Home, Self-Care Condition on Discharge: Good Instructions: DI for COVID-19 (Suspected or Confirmed ) Additional Instructions: fluids and call pcp for follow up Referrals: Provider,Referral, [Primary Care Provider] - - Critical Care Critical Care Time: No Attestation: On 01/27/22, the high probability of a clinically significant, sudden or life threatening deterioration of the following system(s) required my full and direct attention, intervention and personal management. The time I documented below is in addition to time spent performing reported procedures but includes the following listed in this critical care notation. Medical Decision Making - Medical Records Medical records reviewed: Yes: I reviewed the patient's medical records. - Jay Inquiry Pt receiving controlled substance: No Vital Signs: 01/28/22 00:31 01/28/22 00:53 01/28/22 01:04 Temperature 98 F Temperature Source Oral Pulse Rate 86 84 97 H Pulse Rate [Apical] 88 Respiratory Rate 18 Blood Pressure 156/91 H 192/91 H Blood Pressure [Right Arm] 158/85 H Blood Pressure Mean [Right Arm] 109 Blood Pressure Source [Right Arm] Automatic Cuff Blood Pressure Position [Right Arm] Sitting 02 Sat by Pulse Oximetry 95 93 L Oxygen Delivery Method Room Air Room Air - Lab Data Lab results reviewed: Yes: I reviewed the patient's lab results. Lab Results 01/28/22 00:10: Urine Color Yellow, Urine Appearance Clear, Urine pH 6.0, Ur Specific Almond 1.020, Urine Protein Negative, Urine Glucose (UA) Negative, Urine Ketones Negative, Urine Blood Negative, Urine Nitrate Negative, Urine Bilirubin Negative, Urine Urobilinogen 0.2, Ur Leukocyte Esterase Negative, Urine RBC None, Urine WBC Occasional, Ur Squamous Epith Cells Occasional, Urine Bacteria None 01/28/22 00:10: SARS-CoV-2 (PCR) Detected A, Influenza A Untype (PCR) Not detected, Influenza Type B (PCR) Not detected 01/28/22 00:10: Urine HCG, Qual Negative Orders (Tests/Meds): ED MEDICATIONS Discontinued Medications Generic Name Dose Route Start Last Admin Trade Name Freq PRN Reason Stop Dose Admin Albuterol/Ipratropium 3 ml 01/28/22 00:39 01/28/22 00:52 Ipratropium/Albuterol 3 Ml Neb IH 01/28/22 00:40 3 ml ONCE ONE Administration Sodium Chloride 1,000 mls @ 999 mls/hr 01/28/22 00:45 01/28/22 00:54 Sod Chlor 0.9% 1000ml Bag IV 01/28/22 01:45 Not Given .Q1H1M LACI Methylprednisolone Sodium Succinate 125 mg 01/28/22 00:39 01/28/22 00:55 Methylprednisolone Sod Succ 125mg Vial IV 01/28/22 00:40 Not Given ONCE ONE ORDERS Category Date Time Status XR chest 2V Stat Exams 01/28/22 00:38 Taken - Radiology Data #1 Image(s): Chest Image Reviewed: Yes I have reviewed radiologist's interpretation Preliminary Findings: Normal/NAD Medical Decision Narrative: has covid-19 and stable exam URI/Sore Throat HPI - General Chief Complaint: Upper Respiratory Infection Stated Complaint: Fells bad all over,cough,sore throat Time Seen by Provider: 01/28/22 00:37 Mode of Arrival: Ambulatory Source of Information: Patient, Medical Record Limitations: No Limitations Description of Symptoms (Recalled from ER Triage Doc. by RN): Pt states she woke up this morning with congestion in her chest with a non-productive cough, headache and a sore throat. States that her had covid last week. - History of Present Illness HPI Narrative: uri sx with cough and sore throat MD Complaint: cough, sore throat Onset (ago): day(s) Severity: moderate Able to tolerate fluids by mouth: Yes Context: sick contacts Associated symptoms: denies other symptoms Treatments prior to arrival: none - Related Data Home Medications Medication Instructions Recorded Confirmed Metoprolol Succinate [Metoprolol 200 mg PO DAILY 06/28/20 01/28/22 Succinate 200mg Tablet*] Omeprazole [Omeprazo
--- NOTE | 2022-01-28 00:38 | XR_ITS ---
PROCEDURE INFORMATION: Exam: XR Chest Exam date and time: 01/28/2022 12:52 AM Age: 36 years old Clinical indication: Cough TECHNIQUE: Imaging protocol: Radiologic exam of the chest. Views: 2 views. COMPARISON: CR CXR1 CHEST-PORTABLE 01/12/2017 9:13 PM FINDINGS: Lungs: Decreased lung volumes, prominent lung markings/peribronchial thickening without obvious consolidation. Pleural spaces: No evidence of pleural effusion or pneumothorax. Heart/Mediastinum: Mild cardiomegaly with mild central pulmonary vascular congestion. Bones/joints: NA IMPRESSION: Decreased lung volumes without active lung parenchymal lesion.
--- NOTE | 2022-01-28 00:47 | PC.NURSE ---
RT at BS to administer breathing treatment
[2022-01-28 00:53] VITALS: PULSE 81; PULSE 84
[2022-01-28 00:58] LABS: Coronavirus 19, PCR Detected (NotDetected)
[2022-01-28 01:04] VITALS: BP 192/91; PULSE 97; O2SAT 93
--- NOTE | 2022-01-28 01:30 | PC.NURSE ---
Patient is currently resting in bed with family at bedside.
--- NOTE | 2022-01-28 01:55 | PC.NURSE ---
Pt updated on expected wait times. Pt given bottle of water. No new needs voiced at this time.
[2022-01-28 02:43] VITALS: BP 170/88; PULSE 89; RESP 16; TEMP 36.7; O2SAT 98
== END 2022-01-28 03:04 | disposition home or self-care (01) ==
PROVIDERS: Emergency Provider Emergency Medicine
DX: U07.1 COVID-19 (principal); J06.9 Acute upper respiratory infection, unspecified; J02.9 Acute pharyngitis, unspecified; I10 Essential (primary) hypertension; K21.9 Gastro-esophageal reflux disease without esophagitis; J45.909 Unspecified asthma, uncomplicated; Z87.891 Personal history of nicotine dependence; Z82.49 Family history of ischemic heart disease and other diseases of the circulatory system; Z83.49 Family history of other endocrine, nutritional and metabolic diseases; Z83.3 Family history of diabetes mellitus; Z80.9 Family history of malignant neoplasm, unspecified
CPT/HCPCS: 71046; 81001; 81025; 96374; 99284; C9803; U0003; U0005

== ENCOUNTER 2022-03-18 14:17 | Emergency (ER) | payer MEDICAID, SELFPAY ==
[2022-03-18 14:30] VITALS: BP 180/76; PULSE 94; RESP 20; TEMP 36.6; O2SAT 97; BMI 64.2
--- NOTE | 2022-03-18 14:37 | PC.NURSE ---
ED MD AT BEDSIDE FOR EVALUATION
--- NOTE | 2022-03-18 14:40 | HMH.EDABDPAI ---
Discharge Plan Disposition Patient Disposition: Home, Self-Care Condition: Fair Prescriptions Prescriptions: New sucralfate [Carafate] 1 gram tablet 1 g PO Q6H 28 Days Qty: 112 0RF No Action metoprolol succinate 200 MG tablet extended release 24 hr 200 mg PO DAILY omeprazole 40 MG capsule,delayed release(DR/EC) 40 mg PO DAILY Referrals Follow up/Referrals: Provider,Referral, [Primary Care Provider] - See instructions Activity Restrictions/Add. Instructions Additional Instructions/Restrictions: Follow-up with your primary care doctor in approximately 1 week to discuss the possible need for an upper endoscopy. Return to the emergency department immediately if you feel worse in any way. Continue taking your omeprazole as prescribed. Clinical Impressions Clinical Impression: Gastritis Instructions Patient Instructions: DI for Acute Abdominal Pain Discharge ED Provider: Juan Elise Abdominal Pain HPI General Chief Complaint: Abdominal Pain Stated Complaint: Upper abdominal rib pain Time Seen by Provider: 03/18/22 14:40 Mode of Arrival: Ambulatory Source of Information: Patient Limitations: No Limitations History of Present Illness HPI narrative: The patient complains of epigastric abdominal pain that radiates to the back that began this morning. She has not eaten anything all day. She states that she had similar symptoms in the past but has never had it worked up. She does admit to a history of irritable bowel syndrome. She vomited once. Related Data Home Medications Medication Instructions Recorded Confirmed metoprolol succinate 200 mg 200 mg PO DAILY Hypertension 06/28/20 01/28/22 tablet,extended release 24 hr omeprazole 40 mg capsule,delayed 40 mg PO DAILY GERD 06/28/20 01/28/22 release Previous Rx's Medication Instructions Recorded sucralfate 1 gram tablet (Carafate) 1 g PO Q6H 4 weeks #112 tabs 03/18/22 Allergies Allergy/AdvReac Type Severity Reaction Status Date / Time No Known Allergies Allergy Verified 03/28/20 16:23 [facility] Medical History (Updated 03/18/22 @ 15:51 by Juan Elise MD) GERD (gastroesophageal reflux disease) Surgical History (Updated 03/18/22 @ 14:48 by Maritza Haile RN) Previous section Family History (Updated 03/18/22 @ 14:48 by Maritza Haile RN) Other No significant family history Social History (Updated 03/18/22 @ 14:49 by Maritza Haile RN) Smoking Status: Former smoker alcohol intake: never current occupational status: other Travel in the last 8 weeks: None household members: family housing: house ROS Obtained: Yes All systems reviewed & no additional complaints except as documented Physical Exam General General appearance: alert and in no apparent distress Head Head exam: atraumatic, normocephalic and normal inspection Eye Eye exam: Present normal appearance, PERRL and EOMI; Absent scleral icterus ENT ENT exam: Present normal exam, normal oropharynx, mucous membranes moist, TM's normal bilaterally and normal external ear exam Neck Neck exam: Present normal inspection, full ROM and trachea midline; Absent meningismus or lymphadenopathy Chest Chest inspection: Present normal inspection and symmetric chest wall rise; Absent tenderness Respiratory Respiratory exam: Present normal lung sounds bilaterally; Absent respiratory distress Cardiovascular Cardiovascular exam: Present regular rate and normal rhythm; Absent JVD Abdominal Exam Abdominal exam: Present soft and normal bowel sounds; Absent distention, tenderness or guarding Extremities Exam Extremities exam: Present normal inspection, full ROM and normal capillary refill; Absent calf tenderness Back Exam Back exam: Present normal inspection; Absent tenderness, CVA tenderness (R) or CVA tenderness (L) Neurological Exam Neurological exam: Present alert and oriented X3 Psychiatric Psychiatric exam: Present normal
[2022-03-18 14:41] VITALS: BP 180/76; PULSE 71; RESP 18; O2SAT 98
[2022-03-18 14:46] VITALS: BMI 64.2
[2022-03-18 15:00] VITALS: BP 183/86; PULSE 71; RESP 18; O2SAT 96
--- NOTE | 2022-03-18 15:16 | PC.NURSE ---
pt states her pain much better just a dull ache
[2022-03-18 15:21] LABS: Microscopic, Urine URINE MICROSCOPIC (MICROSCOPIC)
[2022-03-18 15:25] LABS: Basophils # 0.1 K/mm3 (0-0.2); Basophils % 0.9 % (0.1-2.0); Eosinophils # 0.1 K/mm3 (0.0-0.4); Eosinophils % 1.2 % (0.1-12.0); Hematocrit 34.8 % (37.0-47.0); Hemoglobin 11.4 g/dL (12.2-16.2); Lymphocytes # 2.1 K/mm3 (0.7-4.5); Lymphocytes % 21.3 % (10-50); Mean Corpuscular HGB Conc 32.9 g/dL (31.8-35.4); Mean Corpuscular Hemoglobin 26.7 pg (27.0-31.2); Mean Corpuscular Volume 81.4 fl (81-99); Mean Platelet Volume 7.7 fl (7.4-10.4); Monocytes # 0.5 K/mm3 (0.1-1.0); Monocytes % 4.6 % (1.7-9.3); Platelet Count 265 K/mm3 (142-424); Red Blood Count 4.28 M/mm3 (4.20-5.40); Red Cell Distribution Width 16.1 % (11.5-17.5); White Blood Count 9.7 K/mm3 (4.8-10.8)
[2022-03-18 15:26] LABS: Appearance,Urine SL CLOUDY (Clear); Bilirubin,Urine Negative (Negative); Blood, Urine Negative (Negative); Chloride 102 mmol/L (98-107); Color,Urine YELLOW (Yellow); Glucose,Urine (UA) Negative (Negative); Ketones,Urine Negative (Negative); Leukocyte Esterase,Urine Negative (Negative); Nitrate,Urine Negative (Negative); Potassium 4.1 mmoL/L (3.5-5.1); Protein,Urine TRACE (Negative); Sodium 139 mmol/L (136-145); Specific Gravity, Urine 1.025 (1.005-1.030); Urobilinogen,Urine 0.2 EU/dl (0.2)
[2022-03-18 15:28] LABS: Alanine Aminotransferase 21 U/L (12-78); Aspartate Amino Transferase 35 U/L (14-36); Bilirubin,Total 0.5 mg/dl (0.2-1.3); Blood Urea Nitrogen 8 mg/dl (7-17); Creatinine Clearance Estimated 133 mL/min (50-200); Estimated Glomerular Filt Rate 112 ml/min (>60); GFR (African American) 135 ML/MIN (>60)
[2022-03-18 15:29] LABS: Albumin Level 4.1 g/dl (3.5-5.0); Albumin/Globulin Ratio 1.3 (1.1-1.8); Alkaline Phosphatase 93 U/L (38-126); Anion Gap 15.1 mEq/L (5-15); Calcium 8.8 mg/dl (8.4-10.2); Carbon Dioxide 26 mmol/L (22.0-30.0); Globulin 3.2 g/dL (1.3-3.2); Glucose 104 mg/dl (74-100); Lipase 75 U/L (23-300); Total Protein,Serum 7.3 g/dl (6.3-8.2)
[2022-03-18 15:30] VITALS: BP 160/74; PULSE 74; RESP 18; O2SAT 97
[2022-03-18 15:34] LABS: HCG Qualitative, Serum Negative (Negative)
[2022-03-18 15:40] LABS: Squamous Epithelial Cell,Urine Occasional #/hpf (0-5); WBC,Urine Occasional #/hpf (0-3)
[2022-03-18 16:05] VITALS: BP 146/69; PULSE 76; RESP 20; TEMP 36.7; O2SAT 100
== END 2022-03-18 16:08 | disposition home or self-care (01) ==
PROVIDERS: Emergency Provider Emergency Medicine
DX: R07.81 Pleurodynia (principal); K21.9 Gastro-esophageal reflux disease without esophagitis; M54.9 Dorsalgia, unspecified; K58.9 Irritable bowel syndrome, unspecified; Z87.891 Personal history of nicotine dependence
CPT/HCPCS: 80053; 81001; 83690; 84703; 85025; 96374; 99284; J2405

== ENCOUNTER → 2022-12-14 15:04 | Outpatient (CLI) | payer MEDICAID, SELFPAY ==
[2022-12-14 15:42] LABS: Hemoglobin A1C 5.5 % (4.0-6.0)
[2022-12-14 16:27] LABS: Thyroid Stimulating Hormone 2.94 uIU/mL (0.465-4.68)
== END ==
PROVIDERS: PCP Family Medicine; Visit Provider Obstetrics & Gynecology
DX: Z01.419 Encounter for gynecological examination (general) (routine) without abnormal findings (principal); N92.6 Irregular menstruation, unspecified; E66.01 Morbid (severe) obesity due to excess calories; Z68.44 Body mass index [BMI] 60.0-69.9, adult
CPT/HCPCS: 36415; 83036; 84443

== ENCOUNTER → 2023-02-04 09:58 | Outpatient (CLI) | payer MEDICAID, SELFPAY ==
--- NOTE | 2023-02-04 10:04 | XR_ITS ---
FINAL REPORT CLINICAL HISTORY: knee pain COMPARISON: None FINDINGS: LEFT KNEE 3 views of the left knee were obtained. There is no acute fracture or dislocation. Visualized joint spaces are normally aligned. Soft tissues are unremarkable. There is minimal hypertrophic change on the undersurface of the patella. IMPRESSION: No acute bony abnormality. Reviewed, Interpreted and Dictated by Isiah Stinson MD Transcribed by Loraine Park Authenticated and [facility]
--- NOTE | 2023-02-04 10:04 | XR_ITS ---
FINAL REPORT CLINICAL HISTORY: Rt Knee pain COMPARISON: None FINDINGS: RIGHT KNEE: There is no acute fracture or dislocation. The joint spaces are intact. There is no soft tissue abnormality. IMPRESSION: No acute fracture Reviewed, Interpreted and Dictated by Isiah Stinson MD Transcribed by Loraine Park Authenticated and [facility]
== END ==
PROVIDERS: PCP Family Medicine; Visit Provider Orthopaedic Surgery
DX: M25.561 Pain in right knee (principal); M25.562 Pain in left knee; S83.92XA Sprain of unspecified site of left knee, initial encounter; S83.91XA Sprain of unspecified site of right knee, initial encounter
CPT/HCPCS: 73562

== ENCOUNTER → 2023-02-20 07:47 | Outpatient (CLI) | payer MEDICAID, SELFPAY ==
--- NOTE | 2023-02-20 07:48 | MR_ITS ---
PROCEDURE INFORMATION: Exam: MR Left Lower Extremity Joint Without Contrast, Knee Exam date and time: 02/20/2023 8:09 AM Age: 37 years old Clinical indication: Pain; Knee; Left; Additional info: Lt knee pain TECHNIQUE: Imaging protocol: Magnetic resonance imaging of the left lower extremity joint without contrast. Exam focused on the knee. COMPARISON: CR XR KNEE LT 3V 02/04/2023 10:21 AM FINDINGS: Bones/joints: No acute fracture. No dislocation. Early degenerative changes of patellofemoral compartment, characterized by tiny marginal osteophytes, minimal signal changes/surface fibrillation of articular cartilage. Moderate degenerative changes of medial compartment, characterized by small marginal osteophytes, joint space narrowing, denudation of articular cartilage. Fluid: Small joint effusion. No Graf's cyst. Medial meniscus: Extensive oblique tear of body/posterior horn. Radial tear of posterior horn near meniscal root with meniscal extrusion. Lateral meniscus: No definite tear. Anterior cruciate ligament: Intact. Posterior cruciate ligament: Intact. Medial capsule and supporting structures: Intact. Lateral capsule and supporting structures: Intact. Extensor mechanism of knee: Intact. Soft tissues: Unremarkable. IMPRESSION: Medial meniscus tear.
== END ==
PROVIDERS: PCP Family Medicine; Visit Provider Orthopaedic Surgery
DX: M25.562 Pain in left knee (principal)
CPT/HCPCS: 73721

== ENCOUNTER → 2023-04-12 16:16 | Outpatient (CLI) | payer MEDICAID, SELFPAY ==
--- NOTE | 2023-04-12 16:21 | XR_ITS ---
FINAL REPORT CLINICAL HISTORY: ASTHMA COMPARISON: None FINDINGS: Two views of the chest were obtained. The heart size and pulmonary vascularity are within normal limits. The mediastinum is normal. No acute pulmonary abnormality is identified. There is no pneumothorax. The bony thorax is intact. IMPRESSION: No active cardiopulmonary disease. Reviewed, Interpreted and Dictated by Anthony Stubbs III, MD Transcribed by Loraine Park Authenticated and . [facility]
--- NOTE | 2023-04-12 16:47 | ECG_ITS ---
APPROVED REPORT Exam: Resting ECG HR:71 bpm ECG Measurements Heart Rate 71 AXES CA 110 P 183 QRSd 90 QRS 3 QT 380 T 100 QTc 403 Conclusion ECTOPIC ATRIAL RHYTHM WITH SHORT CA INTERVAL LOW QRS VOLTAGE IN PRECORDIAL LEADS [QRS DEFLECTION < 1.0 mV IN CHEST LEADS] MARKED ST DEPRESSION, CONSIDER SUBENDOCARDIAL INJURY [0.2+ mV ST DEPRESSION] ACUTE MS UNCONFIRMED REPORT Electronically signed by : Uche Croft MD 04/12/2023 20:16:16
[2023-04-12 16:58] LABS: Basophils % 0.6 % (0.1-2.0); Eosinophils # 0.1 K/mm3 (0.0-0.4); Eosinophils % 1.5 % (0.1-12.0); Hematocrit 34.9 % (37.0-47.0); Hemoglobin 12.2 g/dL (12.2-16.2); Lymphocytes # 2.5 K/mm3 (0.7-4.5); Lymphocytes % 34.7 % (10-50); Mean Corpuscular HGB Conc 34.9 g/dL (31.8-35.4); Mean Corpuscular Hemoglobin 30.2 pg (27.0-31.2); Mean Corpuscular Volume 86.4 fl (81-99); Mean Platelet Volume 7.6 fl (7.4-10.4); Monocytes # 0.4 K/mm3 (0.1-1.0); Monocytes % 6.1 % (1.7-9.3); Neutrophils # 4.2 K/mm3 (1.8-7.8); Neutrophils % 57.1 % (37.0-80.0); Platelet Count 242 K/mm3 (142-424); Red Blood Count 4.04 M/mm3 (4.20-5.40); Red Cell Distribution Width 14.5 % (11.5-17.5); White Blood Count 7.3 K/mm3 (4.8-10.8)
[2023-04-12 18:11] LABS: Alanine Aminotransferase 22 U/L (12-78); Albumin Level 4.2 g/dl (3.5-5.0); Albumin/Globulin Ratio 1.4 (1.1-1.8); Alkaline Phosphatase 76 U/L (38-126); Anion Gap 12.8 mEq/L (5-15); Aspartate Amino Transferase 29 U/L (14-36); Bilirubin,Total 0.4 mg/dl (0.2-1.3); Blood Urea Nitrogen 15 mg/dl (7-17); Calcium 9.3 mg/dl (8.4-10.2); Carbon Dioxide 26 mmol/L (22.0-30.0); Chloride 101 mmol/L (98-107); Estimated Glomerular Filt Rate 80 ml/min (>60); GFR (African American) 97 ML/MIN (>60); Glucose 99 mg/dl (74-100); Potassium 3.8 mmoL/L (3.5-5.1); Sodium 136 mmol/L (136-145); Total Protein,Serum 7.2 g/dl (6.3-8.2)
== END ==
PROVIDERS: PCP Family Medicine; Visit Provider Orthopaedic Surgery
DX: Z01.818 Encounter for other preprocedural examination (principal); S83.232A Complex tear of medial meniscus, current injury, left knee, initial encounter
CPT/HCPCS: 71046; 80053; 85025; 93005

== ENCOUNTER 2024-02-01 09:26 | Inpatient (IN) | payer OTHER, SELFPAY ==
[2024-02-01] VITALS (15 sets, daily range): BP systolic 101–156; BP diastolic 57–98; PULSE 62–79; RESP 13–22; TEMP 36.7–37.1; O2SAT 95–100; BMI 56.1
--- NOTE | 2024-02-01 09:27 | ECG_ITS ---
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
--- NOTE | 2024-02-01 09:33 | XR_ITS ---
FINAL REPORT CLINICAL HISTORY: chest pain, new afib COMPARISON: 01/28/2022 FINDINGS: SINGLE-VIEW CHEST The heart size is normal. The mediastinum is normal. The lungs are clear. There is no pneumothorax. IMPRESSION: No acute cardiopulmonary process. Reviewed, Interpreted and Dictated by Isiah Stinson MD Transcribed by Marie Edwards Authenticated and [facility]
--- NOTE | 2024-02-01 09:57 | ECG_ITS ---
APPROVED REPORT Exam: Resting ECG HR:121 bpm ECG Measurements Heart Rate 121 AXES QRSd 164 QRS -30 QT 356 T 123 QTc 428 Conclusion Orthodromic WPW with aberrant conduction versus antidromic WPW Electronically signed by : SUZY SNYDER, 02/01/2024 13:36:48
[2024-02-01] MEDS: PROCAINAMIDE HCL IV ×3 (10:00→12:41)
[2024-02-01] MEDS: SODIUM CHLORIDE 0.9% IV ×3 (10:00→12:41)
[2024-02-01] MEDS: MAGNESIUM SULFATE IN WATER 2 GM/50 ML PIGGYBACK IV (10:01)
--- NOTE | 2024-02-01 10:12 | HMH.EDCP ---
Discharge Plan Disposition Patient Disposition: Admitted Chief Complaint: Arrhythmia/Palpitations Clinical Impressions Clinical Impression: WPW syndrome, Heart palpitations, Wide-complex tachycardia Discharge ED Provider: Rommel Ba HPI General Chief Complaint: Arrhythmia/Palpitations Stated Complaint: Chest Pain Time Seen by Provider: 02/01/24 09:39 History of Present Illness HPI narrative: Please note that above description of symptoms, in this electronic medical record under categorization of recalled from ER triage doctor by RN are reflective of an initial nursing assessment, however, is not reflective of my full history and physical exam that was personally taken and clarified. Consequentially, this preceding description of symptoms, which may include the patient's categorized chief complaint in the EMR, do not reflect my personal clinical impression, and the ultimate description of history of present illness and patient stated complaints should be deferred to this section of the note. Unless stated otherwise or congruent with this section of the note, additional signs, symptoms, or incongruence should be interpreted as inaccurate with my clinical impression. Related Data Home Medications ?Medication ?Instructions ?Recorded ?Confirmed omeprazole 40 mg capsule,delayed 40 mg PO DAILY 06/28/20 02/01/24 release ferrous sulfate 325 mg (65 mg 325 mg PO DAILY 12/14/22 02/01/24 iron) tablet (FeroSul) lisinopril 10 mg tablet 10 mg PO DAILY 12/14/22 02/01/24 cetirizine 10 mg capsule (Zyrtec) 10 mg PO DAILYP PRN Allergy 02/04/23 02/01/24 Symptoms chlorthalidone 25 mg tablet 25 mg PO DAILY 02/01/24 02/01/24 cholecalciferol (vitamin D3) 125 5,000 unit PO DAILY 02/01/24 02/01/24 mcg (5,000 unit) capsule ergocalciferol (vitamin D2) 1,250 50,000 unit PO WEEKLY 02/01/24 02/01/24 mcg (50,000 unit) capsule metoprolol tartrate 100 mg tablet 100 mg PO BID 02/01/24 02/01/24 Allergies Allergy/AdvReac Type Severity Reaction Status Date / Time No Known Allergies Allergy Verified 03/30/23 10:05 [facility] Disclaimer: The information contained in this section may have been updated after the patient was seen, as this information can be updated by other users. Medical History (Updated 02/01/24 @ 11:38 by Rommel Ba MD) Shortness of Breath Chest pain Palpitations Hypertension History of Iwgti-Wihydonxu-Jpjlu (WPW) syndrome Atrial fibrillation with RVR Severe obesity (BMI >= 40) Abnormal bleeding in menstrual cycle GERD (gastroesophageal reflux disease) Surgical History History of surgery on left wrist Previous section Family History Mother Diabetes Hypertension Kidney disease Father Diabetes Hypertension Social History Smoking Status: Former smoker alcohol intake: current alcohol intake frequency: holidays/special occasions only substance use type: denies use current occupational status: employed Travel in the last 8 weeks: None household members: family housing: house ROS Obtained: Yes All systems reviewed & no additional complaints except as documented Physical Exam General General appearance: alert Neck Neck exam: Present trachea midline Chest Chest inspection: Present normal inspection and symmetric chest wall rise Respiratory Respiratory exam: Present normal lung sounds bilaterally; Absent respiratory distress, wheezes, stridor, accessory muscle use or prolonged expiratory phase Cardiovascular Cardiovascular exam: Present regular rate, normal rhythm and other (Pulses equal and symmetric in upper and lower extremities) Extremities Exam Extremities exam: Absent edema Neurological Exam Neurological exam: Present alert, oriented X3 and CN II-XII intact Skin Skin exam: Present warm and dry; Absent cyanosis, diaphoresis or pallor HEART Score HEART Score HEART Score assessment performed?: Yes History (anamnesis): Slightly suspicious ECG: Non-specific disturbance Age: <45 years Risk factors: 1-2 risk factors Troponin: </= normal limit HEART Score: 2 Critical Care Critical Care Time Critical Care Time: Yes (CV) Attestation: On 02/01/24, the high probability of a clinically significant, sudden or life threatening deterioration of the following system(s) required my full and direct attention, intervention and personal management. The time I documented below is in addition to time spent performing reported procedures but includes the following listed in this critical care notation. Total Time Total Critical Care Time: 60 Medical Decision Making Medical Records Medical records reviewed: Yes I reviewed the patient's medical records. Jay Inquiry Pt receiving controlled substance: No Jay was queried for this patient: No Vital Signs Vital Signs: 02/01/24 09:27 02/01/24 09:30 02/01/24 09:52 Temperature 98.7 F Temperature Source Oral Pulse Rate 63 62 Respiratory Rate 22 15 20 Blood Pressure 122/89 139/66 Blood Pressure [Right Arm] 156/98 H Blood Pressure Mean 70 Blood Pressure Mean [Right Arm] 117 Blood Pressure Source [Right Arm] Automatic Cuff 02 Sat by Pulse Oximetry 98 100 100 Oxygen Delivery Method Room Air 02/01/24 10:17 02/01/24 10:31 Temperature Temperature Source Pulse Rate 76 74 Respiratory Rate Blood Pressure 109/69 L 117/68 Blood Pressure [Right Arm] Blood Pressure Mean 80 83 Blood Pressure Mean [Right Arm] Blood Pressure Source [Right Arm] 02 Sat by Pulse Oximetry 96 99 Oxygen Delivery Method Room Air Room Air Lab Data Labs: Lab Results 02/01/24 10:02: WBC 5.6, RBC 4.62, Hgb 13.0, Hct 41.2, MCV 89.3, MCH 28.2, MCHC 31.6 L, RDW 15.5, Plt Count 253, MPV 8.4, Neut % (Auto) 53.8, Lymph % (Auto) 35.9, Payne % (Auto) 7.2, Eos % (Auto) 1.8, Baso % (Auto) 1.3, Neut # (Auto) 3.0, Lymph # (Auto) 2.0, Payne # (Auto) 0.4, Eos # (Auto) 0.1, Baso # (Auto) 0.1, Sodium 139, Potassium 3.1 L, Chloride 107, Carbon Dioxide 26, Anion Gap 9.1, BUN 14, Creatinine 0.90, Estimated Creat Clear 87, Estimated GFR 69, Est GFR ( Amer) 84, Glucose 108 H, Calcium 8.8, Magnesium 1.9, Total Bilirubin 0.9, AST 53 H, ALT 82 H, Alkaline Phosphatase 65, Troponin I < 0.01, Total Protein 6.9, Albumin 4.0, Globulin 2.9, Albumin/Globulin Ratio 1.4 02/01/24 10:02 02/01/24 10:02 Response Orders (Tests/Meds): ED MEDICATIONS Generic Name Dose Route Start Last Admin Trade Name Freq PRN Reason Stop Dose Admin Procainamide HCl 2,000 mg/ 250 mls @ 7.5 mls/hr 02/01/24 10:30 02/01/24 10:37 Sodium Chloride IV 02/02/24 19:49 7.5 mls/hr ONCE ONE Administration 1 MG/MIN Discontinued Medications Generic Name Dose Route Start Last Admin Trade Name Paramjitq PRN Reason Stop Dose Admin Procainamide HCl 1,000 mg/ 52 mls @ 150 mls/hr 02/01/24 10:00 02/01/24 10:00 Sodium Chloride IV 02/01/24 10:20 150 mls/hr ONCE ONE Administration Magnesium Sulfate 2 gm in 50 mls @ 50 mls/hr 02/01/24 09:51 02/01/24 10:01 Magnesium Sulfate 2gm/50ml Premix IV 02/01/24 10:50 50 mls/hr ONCE ONE Administration Ondansetron HCl 4 mg 02/01/24 10:38 02/01/24 10:39 Ondansetron 4mg/2ml Vial IV 02/01/24 10:39 4 mg ONCE ONE Administration Potassium Chloride 60 meq 02/01/24 10:25 02/01/24 10:37 Potassium Chloride 20meq Tab PO 02/01/24 10:26 60 meq ONCE ONE Administration ORDERS Category Date Time Status CXR --portable [XR chest portable] Stat Exams 02/01/24 09:33 Completed Complete Blood Count Auto Diff Stat Lab 02/01/24 10:02 Completed Comprehensive Metabolic Panel Stat Lab 02/01/24 10:02 Completed Free T4 (Free Thyroxine) Stat Lab 02/01/24 10:02 Received Magnesium Stat Lab 02/01/24 10:02 Completed Thyroid Stimulating Hormone Stat Lab 02/01/24 10:02 Received Troponin I Q3H Lab 02/01/24 12:45 Ordered Troponin I Q3H Lab 02/01/24 15:45 Ordered Troponin I Stat Lab 02/01/24 10:02 Completed MDM Narrative Medical Decision Narrative: 38-year-old female history of WPW, hypertension presenting with palpitations. Patient states palpitations started today, 01/31 around 3 AM. Usually they self resolve, thought this would happen. They did not resolve, came in shortly thereafter for further evaluation. On arrival, patient complaining of palpitations and shortness of breath. Denies chest pain, nausea, vomiting, recent illness, syncope, or any other concerns. States that she is on metoprolol as well as HCTZ and lisinopril. Recently states that she also had a weight loss surgery at [facility]. History was obtained via conversation with patient. On arrival, patient hemodynamically stable, alert, oriented x4, appropriate, GCS 15, moving all extremities spontaneously, pupils equal and reactive to light. Full physical exam performed and significant for patient anxious and tachycardic. No murmurs gallops rubs. Patient's pulses are equal and symmetric. No lower extremity edema. On the monitor, patient intermittently converting from narrow complex irregular tachycardia to wide-complex irregular tachycardia concerning for orthodromic and antidromic WPW with intermittent conduction. Differential includes metabolic abnormality, endocrinologic abnormality, medication side effect, malignant arrhythmia, ACS, MD, among other. Patient was given 2 g magnesium IV, 1 g procainamide IV for symptomatic management and correction of underlying abnormalities. Patient placed on continuous cardiac monitoring and continuous pulse ox with initial blood pressure 122/89, heart rate 63, saturation 100% on room air. Independent interpretation of EKG shows A-fib with RVR versus WPW with variable conduction. T wave inversions 3 and aVF without reciprocal change. Reading normal. Repeat EKG shortly thereafter A-fib with RVR with intermittent wide-complex tachycardia concerning for antidromic conduction in the setting of WPW. T wave inversions persist, no elevations.. Workup independently interpreted and significant for nonactionable CBC or chemistry other than potassium which was 3.1 and this was repleted 60 mill equivalents p.o. Magnesium 1.9. Troponin negative. On independent interpretation of imaging, nonactionable chest x-ray with normal findings. See radiology read for full review of final results. Heart score 2. Patient kept on monitoring specialist. After long procainamide, patient narrow complex regular sinus rhythm without ischemic change. Saturating appropriately. 68 beats a minute, 101/63. Procainamide drip was initiated. Cardiology was contacted and case was discussed at length, appreciate recommendations. Electrophysiology at [facility] was contacted and case was discussed at length, accepted under Dr. Mack in cardiology, but stated that the wait may be a few hours to a day. Hospitalist was contacted and case was discussed at length, to be admitted to the ICU until transfer to [facility]. Flooring Professional disclaimer Much of this encounter note is an electronic concrete placement equipment operator spoken language to printed text. Electronic concrete placement equipment operator of the spoken language may permit errors. Although I have reviewed the note, some errors may still exist.
[2024-02-01 10:13] LABS: Basophils # 0.1 K/mm3 (0-0.2); Basophils % 1.3 % (0.1-2.0); Eosinophils # 0.1 K/mm3 (0.0-0.4); Eosinophils % 1.8 % (0.1-12.0); Hematocrit 41.2 % (37.0-47.0); Lymphocytes % 35.9 % (10-50); Mean Corpuscular HGB Conc 31.6 g/dL (31.8-35.4); Mean Corpuscular Hemoglobin 28.2 pg (27.0-31.2); Mean Corpuscular Volume 89.3 fl (81-99); Mean Platelet Volume 8.4 fl (7.4-10.4); Monocytes # 0.4 K/mm3 (0.1-1.0); Monocytes % 7.2 % (1.7-9.3); Neutrophils % 53.8 % (37.0-80.0); Platelet Count 253 K/mm3 (142-424); Red Blood Count 4.62 M/mm3 (4.20-5.40); Red Cell Distribution Width 15.5 % (11.5-17.5); White Blood Count 5.6 K/mm3 (4.8-10.8)
[2024-02-01 10:19] LABS: Chloride 107 mmol/L (98-107)
--- NOTE | 2024-02-01 10:19 | EXP.CARD.CON ---
History of Present Illness History of Present Illness Consult date: 02/01/24 Requesting physician: Rommel Ba Consult reason: chest pain and shortness of breath Chief complaint: palpitations, SOB, chest pain History of present illness: This is a 38-year-old white female who presented to the emergency department with complaints of palpitations, chest pain and shortness of breath. The patient has a history of Iverson Parkinson's White syndrome, hypertension and morbid obesity status post weight loss surgery on January 13, 2024. The patient states that she woke up this morning with her heart racing. She states that her heart rate felt like it was beating out of her chest. She states that she had some burning in her chest associated with the palpitations and shortness of breath. Her symptoms were severe. She states that she intermittently has the palpitations but nowhere near as severe as it was this morning. She states because it persisted and was so severe she decided to come to the emergency department. The patient was found to be in atrial fibrillation with RVR, her heart rate was initially around the 120s. Her heart rate elevated to the 130s to 140s and her EKG was repeated which showed atrial fibrillation versus V. tach. On review of the EKG it appears that the patient was in atrial fibrillation with RVR and aberrancy. She denies any fever, chills, nausea, vomiting, diarrhea, PND or orthopnea. She denies any lower extremity edema. [facility] Disclaimer: The information contained in this section may have been updated after the patient was seen, as this information can be updated by other users. Medical History (Updated 02/01/24 @ 10:37 by Aneta Sexton APRN) Shortness of Breath Chest pain Palpitations Hypertension History of Dvvyj-Iixpbaazi-Bwjef (WPW) syndrome Atrial fibrillation with RVR Severe obesity (BMI >= 40) Abnormal bleeding in menstrual cycle GERD (gastroesophageal reflux disease) Surgical History History of surgery on left wrist Previous section Family History Mother Diabetes Hypertension Kidney disease Father Diabetes Hypertension Social History Smoking Status: Former smoker alcohol intake: current alcohol intake frequency: holidays/special occasions only substance use type: denies use current occupational status: employed Travel in the last 8 weeks: None household members: family housing: house Review of Systems Review of Systems Review of systems:: pertinent systems reviewed and negative unless documented below Constitutional Constitutional: Reports system reviewed and no additional complaints, except as documented Eyes Eyes: Reports system reviewed and no additional complaints, except as documented ENT Ears, Nose, Mouth, and Throat: Reports system reviewed and no additional complaints, except as documented *Cardiovascular Cardiovascular: Reports system reviewed and no additional complaints, except as documented, Reports chest pain, Reports chest pain at rest, Reports chest pain with activity, Reports dyspnea, Reports dyspnea on exertion, Reports irregular heart rhythm, Reports palpitations and Reports rapid heart rate *Respiratory Respiratory: Reports system reviewed and no additional complaints, except as documented, Reports dyspnea and Reports dyspnea on exertion *Gastrointestinal Gastrointestinal: Reports system reviewed and no additional complaints, except as documented *Genitourinary Genitourinary: Reports system reviewed and no additional complaints, except as documented *Musculoskeletal Musculoskeletal: Reports system reviewed and no additional complaints, except as documented Integumentary/Breasts Skin/Breast: Reports system reviewed and no additional complaints, except as documented *Neurologic Neurologic: Reports system reviewed and no additional complaints, except as documented Psychiatric Psychiatric: Reports system reviewed and no additional complaints, except as documented Endocrine Endocrine: Reports system reviewed and no additional complaints, except as documented and Reports palpitations Hematologic/Lymphatic Hematologic/Lymphatic: Reports system reviewed and no additional complaints, except as documented Allergic/Immunologic Allergic/Immunologic: Reports system reviewed and no additional complaints, except as documented Exam Data for Last 24 hours Vital signs and Labs for Last 24 Hours: Pulse Resp BP Pulse Ox 62 20 139/66 100 02/01/24 09:52 02/01/24 09:52 02/01/24 09:52 02/01/24 09:52 Laboratory Results - last 24 hr 02/01/24 10:02: WBC 5.6, RBC 4.62, Hgb 13.0, Hct 41.2, MCV 89.3, MCH 28.2, MCHC 31.6 L, RDW 15.5, Plt Count 253, MPV 8.4, Neut % (Auto) 53.8, Lymph % (Auto) 35.9, Kay % (Auto) 7.2, Eos % (Auto) 1.8, Baso % (Auto) 1.3, Neut # (Auto) 3.0, Lymph # (Auto) 2.0, Kay # (Auto) 0.4, Eos # (Auto) 0.1, Baso # (Auto) 0.1 I & O for Last 24 hours: Intake & Output 01/29/24 01/30/24 01/31/24 02/01/24 23:59 23:59 23:59 23:59 Weight 380 lb Narrative: EKG #1 shows atrial fibrillation with a rate of 118 and nonspecific T wave/T wave abnormalities. EKG #2 shows atrial fibrillation with RVR and aberrancy. Rate is 121 bpm. Telemetry strip shows atrial fibrillation with aberrancy, rate 130-140s. Constitutional Constitutional: no acute distress and morbidly obese *Routine HEENT Exam Head: Present normocephalic and atraumatic ENT: Present mucous membranes moist *Routine Neck Exam Neck: Present supple, full ROM and normal carotid upstroke; Absent JVD, carotid bruit or lymphadenopathy *Routine Respiratory Exam Respiratory: Present CTA bilaterally, normal respiratory effort, able to speak in complete sentences and symmetric chest movement *Routine Cardiovascular Exam Cardiovascular: Present Normal S1, Normal S2, tachycardia and irregularly irregular; Absent murmur or gallop *Routine Abdominal Exam Abdominal: Present soft and normoactive bowel sounds; Absent tenderness, distended or organomegaly *Routine Extremities Exam Extremities: Present full ROM, pulses intact and normal capillary refill; Absent cyanosis, clubbing or edema *Routine Skin Exam Skin: Present intact and warm; Absent erythema *Routine Neurological Exam Neurological: Present alert, oriented X3 and CN II-XII intact; Absent sensory deficit or motor deficit Routine Psychiatric Exam Psychiatric: Present normal affect Meds Home Medications and Allergies Home Medications ?Medication ?Instructions ?Recorded ?Confirmed ?Type metoprolol succinate 200 mg 200 mg PO DAILY Hypertension 06/28/20 04/14/23 History tablet,extended release 24 hr omeprazole 40 mg capsule,delayed 40 mg PO DAILY GERD 06/28/20 04/14/23 History release chlorthalidone 25 mg tablet 25 mg PO DAILY 12/14/22 04/14/23 History ferrous sulfate 325 mg (65 mg 325 mg PO DAILY 12/14/22 04/14/23 History iron) tablet (FeroSul) lisinopril 10 mg tablet 10 mg PO DAILY 12/14/22 04/14/23 History cetirizine 10 mg capsule (Zyrtec) 10 mg PO DAILY PRN allergies 02/04/23 04/14/23 History New Prescriptions to Start Prescriptions: Allergies Allergy/AdvReac Type Severity Reaction Status Date / Time No Known Allergies Allergy Verified 03/30/23 10:05 Assessment and Plan *Assessment and plan (1) Atrial fibrillation with RVR: Status: Acute Category: Medical Code(s): I48.91 - Unspecified atrial fibrillation (2) History of Fnoyv-Xojjfihmf-Nbckn (WPW) syndrome: Status: Acute Category: Medical Code(s): Z86.79 - Personal history of other diseases of the circulatory system (3) Hypertension: Status: Acute Qualifiers: Hypertension type: primary hypertension Qualified Code(s): I10 - Essential (primary) hypertension Category: Medical Code(s): I10 - Essential (primary) hypertension (4) Severe obesity (BMI >= 40): Status: Acute Category: Medical Code(s): E66.01 - Morbid (severe) obesity due to excess calories (5) Palpitations: Status: Acute Category: Medical Code(s): R00.2 - Palpitations (6) Chest pain: Status: Acute Qualifiers: Chest pain type: other chest pain Qualified Code(s): R07.89 - Other chest pain Category: Medical Code(s): R07.9 - Chest pain, unspecified (7) Shortness of Breath: Status: Acute Category: Medical Code(s): R06.02 - Shortness of breath (8) GERD (gastroesophageal reflux disease): Status: Acute Qualifiers: Esophagitis presence: esophagitis presence not specified Qualified Code(s): K21.9 - Gastro-esophageal reflux disease without esophagitis Category: Medical Code(s): K21.9 - Gastro-esophageal reflux disease without esophagitis Plan Plan: 1. The patient presented to the emergency department with complaints of palpitations, chest pain and shortness of breath. The patient does have a history of WPW. She was found to be in atrial fibrillation with RVR. She also had some wide-complex tachycardia that may be questionable atrial fibrillation with aberrancy from an accessory pathway. However, there is some concern that the EKG has delta waves and this could be WPW as well. Will give the patient 1 g of procainamide x 1 dose now. 2. Once the patient has a narrow complex rhythm, then will start her on a procainamide drip. 3. Recommend transfer to [facility] or [facility] for electrophysiology consult for questionable atrial fibrillation with aberrancy from an accessory pathway versus WPW.. 4. Her blood pressure is well-controlled. 5. Her LDL goal is less than 100. 6. Will obtain a TSH and free T4. 7. Her initial troponin is negative. No plans for invasive left cardiac catheterization at this time. 8. The patient did have recent weight loss surgery on January 13, 2024. She was on anticoagulation initially following the surgery but this has since been discontinued. Recommend Lovenox 1 mg/kg subcutaneous twice daily. 9. Further recommendations will be made pending the patient's response to treatment. She is currently awaiting transfer for electrophysiology referral. Thank you for the opportunity to help participate in the care of this patient. All recommendations and orders are per Dr. Malcolm.
[2024-02-01 10:20] LABS: Potassium 3.1 mmoL/L (3.5-5.1); Sodium 139 mmol/L (136-145)
[2024-02-01 10:23] LABS: Alanine Aminotransferase 82 U/L (12-78); Albumin/Globulin Ratio 1.4 (1.1-1.8); Alkaline Phosphatase 65 U/L (38-126); Anion Gap 9.1 mEq/L (5-15); Aspartate Amino Transferase 53 U/L (14-36); Bilirubin,Total 0.9 mg/dl (0.2-1.3); Blood Urea Nitrogen 14 mg/dl (7-17); Calcium 8.8 mg/dl (8.4-10.2); Carbon Dioxide 26 mmol/L (22.0-30.0); Creatinine Clearance Estimated 87 mL/min (50-200); Estimated Glomerular Filt Rate 69 ml/min (>60); GFR (African American) 84 ML/MIN (>60); Globulin 2.9 g/dL (1.3-3.2); Glucose 108 mg/dl (74-100); Magnesium 1.9 mg/dl (1.6-2.3); Total Protein,Serum 6.9 g/dl (6.3-8.2)
[2024-02-01 10:37] LABS: Troponin I < 0.01 ng/ml (0.00-0.034)
[2024-02-01] MEDS: POTASSIUM CHLORIDE 20MEQ TAB 60 MEQ PO (10:37)
[2024-02-01] MEDS: ONDANSETRON 4MG/2ML VIAL 4 MG IV (10:39)
--- NOTE | 2024-02-01 10:49 | PC.NURSE ---
Called [facility] per Dr aB to speak with them about this pt.
--- NOTE | 2024-02-01 10:50 | PC.NURSE ---
[facility] advised that they would call back that the Hospitalist was on a call
--- NOTE | 2024-02-01 11:03 | PC.NURSE ---
Pt accepted to but no bed available at this time. Dr. Ba speaking with Dr. Harris about possible admission at this time while waiting for bed at .
--- NOTE | 2024-02-01 11:17 | PC.NURSE ---
machinist supervisor outside notified of pt admission
[2024-02-01 11:23] LABS: Thyroid Stimulating Hormone 3.19 uIU/mL (0.465-4.68)
--- NOTE | 2024-02-01 11:37 | HMH.PHAINT1 ---
Pharmacy Intervention Comments: MEDICATION RECONCILIATION COMPLETED ON PATIENT USING EXTERNAL FILL HISTORY FROM PHARMACY. -JUNIE COOMBS, CHONGD
[2024-02-01 12:30] LABS: Free T4 (Free Thyroxine) 1.64 ng/dl (0.78-2.19)
--- NOTE | 2024-02-01 13:00 | PC.NURSE ---
Dr. Ba and Aneta Sexton APRN consulted on Procainamide orders. Orders to leave drip at 7.5 ml/hr unless pt. becomes hypotensive or bradycardic. If that occurs, cut dose in half. If hypotension or bradycardia persists, orders to stop procainamide drip and consult MD and cardiology for further action.
--- NOTE | 2024-02-01 13:36 | EXP.HP ---
History of Present Illness *Admission Date: 02/01/24 *Reason for visit:: Move Parkinson's White exacerbation *History of present illness: Really nice 38yoF patient with past medical history of WPW, GERD, atrial fibrillation, gastritis. Patient presents with palpitations starting at 3:30 AM today. Patient presented to the emergency room for evaluation, and noted to be in Cmgso-Mlrzzgeuh-Btmgn exacerbation. Patient started on IV procainamide gtt. in emergency room and returned to normal sinus rhythm. Admits to substernal chest burning 01/21, constant, without exacerbating or remitting factors starting at 3:30 AM this morning. Denies fevers, chills, sick contacts, recent travel, recent accidents, recreational drug use, heavy caffeine ingestion. Patient's significant other at bedside and collaborates patient's story at time of admission. [facility] Disclaimer: The information contained in this section may have been updated after the patient was seen, as this information can be updated by other users. Medical History Shortness of Breath Chest pain Palpitations Hypertension History of Dkqyc-Ifknmckay-Zydyr (WPW) syndrome Atrial fibrillation with RVR Severe obesity (BMI >= 40) Abnormal bleeding in menstrual cycle GERD (gastroesophageal reflux disease) Surgical History History of surgery on left wrist Previous section Family History Mother Diabetes Hypertension Kidney disease Father Diabetes Hypertension Social History (Updated 02/01/24 @ 12:29 by Kimberly Vincent RN) Smoking Status: Former smoker alcohol intake: current alcohol intake frequency: holidays/special occasions only substance use type: denies use current occupational status: employed Travel in the last 8 weeks: None household members: family housing: house Review of Systems Constitutional Constitutional: Reports system reviewed and no additional complaints, except as documented *Neurologic Neurologic: Reports system reviewed and no additional complaints, except as documented Meds Home Medications and Allergies Home Medications ?Medication ?Instructions ?Recorded ?Confirmed ?Type omeprazole 40 mg capsule,delayed 40 mg PO DAILY 06/28/20 02/01/24 History release ferrous sulfate 325 mg (65 mg 325 mg PO DAILY 12/14/22 02/01/24 History iron) tablet (FeroSul) lisinopril 10 mg tablet 10 mg PO DAILY 12/14/22 02/01/24 History cetirizine 10 mg capsule (Zyrtec) 10 mg PO DAILYP PRN Allergy 02/04/23 02/01/24 History Symptoms calcium citrate 500 mg (2,376 mg) 500 mg PO BID 02/01/24 02/01/24 History effervescent tablet chlorthalidone 25 mg tablet 25 mg PO DAILY 02/01/24 02/01/24 History cholecalciferol (vitamin D3) 125 5,000 unit PO DAILY 02/01/24 02/01/24 History mcg (5,000 unit) capsule ergocalciferol (vitamin D2) 1,250 50,000 unit PO WEEKLY 02/01/24 02/01/24 History mcg (50,000 unit) capsule metoprolol tartrate 100 mg tablet 100 mg PO BID 02/01/24 02/01/24 History multivitamin 1 tab PO DAILY 02/01/24 02/01/24 History vitamin A 10,000 unit tablet 10,000 unit PO DAILY 02/01/24 02/01/24 History vitamin B complex 1 tab PO DAILY 02/01/24 02/01/24 History New Prescriptions to Start Prescriptions: Allergies Allergy/AdvReac Type Severity Reaction Status Date / Time No Known Allergies Allergy Verified 03/30/23 10:05 Exam Data for Last 24 hours Vital signs and Labs for Last 24 Hours: Temp Pulse Resp BP Pulse Ox O2 Del Method 98.6 F 63 16 103/63 L 100 Room Air 02/01/24 13:00 02/01/24 13:00 02/01/24 13:00 02/01/24 13:00 02/01/24 13:00 02/01/24 13:00 Laboratory Results - last 24 hr 02/01/24 10:02: WBC 5.6, RBC 4.62, Hgb 13.0, Hct 41.2, MCV 89.3, MCH 28.2, MCHC 31.6 L, RDW 15.5, Plt Count 253, MPV 8.4, Neut % (Auto) 53.8, Lymph % (Auto) 35.9, [place] % (Auto) 7.2, Eos % (Auto) 1.8, Baso % (Auto) 1.3, Neut # (Auto) 3.0, Lymph # (Auto) 2.0, [place] # (Auto) 0.4, Eos # (Auto) 0.1, Baso # (Auto) 0.1, Sodium 139, Potassium 3.1 L, Chloride 107, Carbon Dioxide 26, Anion Gap 9.1, BUN 14, Creatinine 0.90, Estimated Creat Clear 87, Estimated GFR 69, Est GFR ( Amer) 84, Glucose 108 H, Calcium 8.8, Magnesium 1.9, Total Bilirubin 0.9, AST 53 H, ALT 82 H, Alkaline Phosphatase 65, Troponin I < 0.01, Total Protein 6.9, Albumin 4.0, Globulin 2.9, Albumin/Globulin Ratio 1.4, TSH 3.19, Free T4 1.64 I & O for Last 24 hours: Intake & Output 01/29/24 01/30/24 01/31/24 02/01/24 23:59 23:59 23:59 23:59 Weight 172.365 kg Constitutional Constitutional: no acute distress *Routine HEENT Exam Head: Present normocephalic Eye: Present EOMI ENT: Present mucous membranes moist *Routine Neck Exam Neck: Present supple and full ROM *Routine Respiratory Exam Respiratory: Present CTA bilaterally *Routine Cardiovascular Exam Cardiovascular: Present tachycardia *Routine Abdominal Exam Abdominal: Present soft and normoactive bowel sounds *Routine Rectal Exam Rectal:: deferred *Routine Genitalia Exam Genitalia:: deferred *Routine Extremities Exam Extremities: Present full ROM and normal capillary refill *Routine Skin Exam Skin: Present intact and dry *Routine Neurological Exam Neurological: Present alert and oriented X3 Assessment and Plan *Assessment and plan (1) Wide-complex tachycardia: Status: Acute Category: Medical Code(s): R00.0 - Tachycardia, unspecified (2) Heart palpitations: Status: Acute Category: Medical Code(s): R00.2 - Palpitations (3) WPW syndrome: Status: Acute Category: Medical Code(s): I45.6 - Pre-excitation syndrome Plan Really nice 38yoF patient with past medical history of WPW, GERD, atrial fibrillation, gastritis. Patient presents with palpitations starting at 3:30 AM today. Patient presented to the emergency room for evaluation, and noted to be in Opatn-Ovyiyjfmg-Gvavv exacerbation. Patient placed on procainamide gtt. in emergency room and returned to normal sinus rhythm. Gblwv-Dtthqjgtv-Drjju exacerbation: Currently controlled with procainamide gtt. Consult cardiology. Patient accepted by for transfer once bed available. Patient will mostly likely be transferred to within next 24 hours once bed available. GERD: Continue home management Hypertension: Continue home management Migraines: Continue management PPx: Lovenox subcutaneous CODE STATUS full FEN cardiac diet 35 minutes of critical care time spent on this patient by Dr. Harris 02/01/2024
[2024-02-01] MEDS: 0.9 % SODIUM CHLORIDE 1000ML 1,000 ML 125 ML IV (14:38)
[2024-02-01] MEDS: ENOXAPARIN 100MG/ML SYRINGE 170 MG SQ (15:17)
[2024-02-01 15:32] LABS: Troponin I < 0.01 ng/ml (0.00-0.034)
[2024-02-01] MEDS: MULTIVITAMIN TABLET 1 EACH PO (16:09)
[2024-02-01] MEDS: LORATADINE 10MG TABLET 10 MG PO (16:09)
--- NOTE | 2024-02-01 18:23 | P.DS_ITS ---
General Admission date:: 02/01/24 Discharge date: 02/01/24 HPI HPI HPI: Really nice 38yoF patient with past medical history of WPW, GERD, atrial fibrillation, gastritis. Patient presents with palpitations starting at 3:30 AM today. Patient presented to the emergency room for evaluation, and noted to be in Ckvct-Gvikaomdf-Txbhm exacerbation. Patient started on IV procainamide gtt. in emergency room and returned to normal sinus rhythm. Admits to substernal chest burning 01/21, constant, without exacerbating or remitting factors starting at 3:30 AM this morning. Denies fevers, chills, sick contacts, recent travel, recent accidents, recreational drug use, heavy caffeine ingestion. Patient's significant other at bedside and collaborates patient's story at time of admission. Hospital Course Hospital Course Hospital Course: Patient with past medical history of WPW, GERD, atrial fibrillation, hypertensi on, migraines, gastritis presents with WPW exacerbation. Patient bolused with procainamide and started on procainamide drip in emergency room. Patient admitted to hospital to [facility] ICU until [facility] transfer arrangements finalized. [facility] called around 1820 with bed for patient. Patient then transferred to [facility] ICU without complication of the leg. Exam Data for Last 24 hours Vital signs and Labs for Last 24 Hours: Temp Pulse Resp BP Pulse Ox O2 Del Method 98.6 F 67 13 130/85 98 Room Air 02/01/24 13:00 02/01/24 17:00 02/01/24 17:00 02/01/24 17:00 02/01/24 17:00 02/01/24 17:00 Laboratory Results - last 24 hr 02/01/24 10:02: WBC 5.6, RBC 4.62, Hgb 13.0, Hct 41.2, MCV 89.3, MCH 28.2, MCHC 31.6 L, RDW 15.5, Plt Count 253, MPV 8.4, Neut % (Auto) 53.8, Lymph % (Auto) 35.9, [place] % (Auto) 7.2, Eos % (Auto) 1.8, Baso % (Auto) 1.3, Neut # (Auto) 3.0, Lymph # (Auto) 2.0, [place] # (Auto) 0.4, Eos # (Auto) 0.1, Baso # (Auto) 0.1, Sodium 139, Potassium 3.1 L, Chloride 107, Carbon Dioxide 26, Anion Gap 9.1, BUN 14, Creatinine 0.90, Estimated Creat Clear 87, Estimated GFR 69, Est GFR ( Amer) 84, Glucose 108 H, Calcium 8.8, Magnesium 1.9, Total Bilirubin 0.9, AST 53 H, ALT 82 H, Alkaline Phosphatase 65, Troponin I < 0.01, Total Protein 6.9, Albumin 4.0, Globulin 2.9, Albumin/Globulin Ratio 1.4, TSH 3.19, Free T4 1.64 02/01/24 14:40: Troponin I < 0.01 I & O for Last 24 hours: Intake & Output 01/29/24 01/30/24 01/31/24 02/01/24 23:59 23:59 23:59 23:59 Intake Total 200 / 200 Output Total 0 / 0 Balance 200 / 200 Weight 172.365 kg Constitutional Constitutional: no acute distress *Routine HEENT Exam Head: Present normocephalic Eye: Present EOMI ENT: Present mucous membranes moist *Routine Neck Exam Neck: Present supple and full ROM *Routine Respiratory Exam Respiratory: Present CTA bilaterally *Routine Cardiovascular Exam Cardiovascular: Present RRR *Routine Abdominal Exam Abdominal: Present soft, normoactive bowel sounds and obese *Routine Extremities Exam Extremities: Present full ROM and pulses intact *Routine Skin Exam Skin: Present intact and dry *Routine Neurological Exam Neurological: Present alert, oriented X3, CN II-XII intact and normal reflexes Results Data Completed and Pending Labs on day of discharge: Labs from last 24 hours 02/01/24 02/01/24 14:40 10:02 WBC 5.6 RBC 4.62 Hgb 13.0 Hct 41.2 MCV 89.3 MCH 28.2 MCHC 31.6 L RDW 15.5 Plt Count 253 MPV 8.4 Neut % (Auto) 53.8 Lymph % (Auto) 35.9 [place] % (Auto) 7.2 Eos % (Auto) 1.8 Baso % (Auto) 1.3 Neut # (Auto) 3.0 Lymph # (Auto) 2.0 [place] # (Auto) 0.4 Eos # (Auto) 0.1 Baso # (Auto) 0.1 Sodium 139 Potassium 3.1 L Chloride 107 Carbon Dioxide 26 Anion Gap 9.1 BUN 14 Creatinine 0.90 Estimated Creat Clear 87 Estimated GFR 69 Est GFR ( Amer) 84 Glucose 108 H Calcium 8.8 Magnesium 1.9 Total Bilirubin 0.9 AST 53 H ALT 82 H Alkaline Phosphatase 65 Troponin I < 0.01 < 0.01 Total Protein 6.9 Albumin 4.0 Globulin 2.9 Albumin/Globulin Ratio 1.4 TSH 3.19 Free T4 1.64 DS: Diagnosis Discharge Diagnosis (1) Wide-complex tachycardia: Status: Acute Code(s): R00.0 - Tachycardia, unspecified (2) Heart palpitations: Status: Acute Code(s): R00.2 - Palpitations (3) WPW syndrome: Status: Acute Code(s): I45.6 - Pre-excitation syndrome Meds Home Medications and Allergies Home Medications ?Medication ?Instructions ?Recorded ?Confirmed ?Type omeprazole 40 mg capsule,delayed 40 mg PO DAILY 06/28/20 02/01/24 History release ferrous sulfate 325 mg (65 mg 325 mg PO DAILY 12/14/22 02/01/24 History iron) tablet (FeroSul) lisinopril 10 mg tablet 10 mg PO DAILY 12/14/22 02/01/24 History cetirizine 10 mg capsule (Zyrtec) 10 mg PO DAILYP PRN Allergy 02/04/23 02/01/24 History Symptoms calcium citrate 500 mg (2,376 mg) 500 mg PO BID 02/01/24 02/01/24 History effervescent tablet chlorthalidone 25 mg tablet 25 mg PO DAILY 02/01/24 02/01/24 History cholecalciferol (vitamin D3) 125 5,000 unit PO DAILY 02/01/24 02/01/24 History mcg (5,000 unit) capsule ergocalciferol (vitamin D2) 1,250 50,000 unit PO WEEKLY 02/01/24 02/01/24 History mcg (50,000 unit) capsule metoprolol tartrate 100 mg tablet 100 mg PO BID 02/01/24 02/01/24 History multivitamin 1 tab PO DAILY 02/01/24 02/01/24 History vitamin A 10,000 unit tablet 10,000 unit PO DAILY 02/01/24 02/01/24 History vitamin B complex 1 tab PO DAILY 02/01/24 02/01/24 History New Prescriptions to Start Prescriptions: Allergies Allergy/AdvReac Type Severity Reaction Status Date / Time No Known Allergies Allergy Verified 03/30/23 10:05 Discharge Plan Disposition Patient Disposition: Xfer Other Condition: Undetermined Discharge Order Discharge Orders: Discharge Order (Routine); Ordered 02/01/24 Ordered By: Elmer Harris Follow up Plan Follow up with: Ovi Malcolm MD [Staff Physician] - 2 weeks (After stabilization at [facility] for with Parkinson's White) Prescriptions/Medication Reconciliation: No Action ferrous sulfate [FeroSul] 325 mg (65 mg iron) tablet 325 mg PO DAILY lisinopril 10 mg tablet 10 mg PO DAILY Zyrtec 10 mg capsule 10 mg PO DAILYP PRN (Reason: Allergy Symptoms) omeprazole 40 MG capsule,delayed release(DR/EC) 40 mg PO DAILY metoprolol tartrate 100 mg tablet 100 mg PO BID chlorthalidone 25 mg tablet 25 mg PO DAILY ergocalciferol (vitamin D2) 1,250 mcg (50,000 unit) capsule 50,000 unit PO WEEKLY cholecalciferol (vitamin D3) 125 mcg (5,000 unit) capsule 5,000 unit PO DAILY multivitamin Tablet 1 tab PO DAILY calcium citrate 500 mg Tablet, Effervescent 500 mg PO BID vitamin B complex [Vitamin B-50 Complex] Tablet 1 tab PO DAILY vitamin A 10,000 unit Tablet 10,000 unit PO DAILY Problem Reconciliation Problems Reviewed?: Yes Patient Discharge Instructions ACTIVITY: Continue current activity DIET: continue same diet Stand Alone Forms: Transfer Record Patient Instructions: DI for Ublqh-Xbcrfsube-Mtryp Syndrome Print Language: Amharic Providers Primary Care Provider: Jenae Whalen Admit Provider: Elmer Harris Attending Provider: Elmer Harris
--- NOTE | 2024-02-01 18:43 | PC.NURSE ---
Report called to nurse Lizzeth Chaparro RN. Pt. going to [facility], 6-120.
--- NOTE | 2024-02-01 18:44 | PC.NURSE ---
Pt. rested comfortably throughout the shift. VS remain within normal limits. Procainamide drip infusing at 7.5 ml/hr per MAR. Pt. ambulated to bathroom without difficulty. Pt. aware of transfer to via EMS. Pt. denies questions or concerns at this time. Daughter at bedside.
[2024-02-01 18:53] LABS: Troponin I 0.01 ng/ml (0.00-0.034)
== END 2024-02-01 19:06 | disposition short-term general hospital (02) | DRG 309 ==
LOC: ER 10:07 → 2ND 11:28
PROVIDERS: Nurse Practitioner Family; Admitting Provider Internal Medicine; Emergency Provider Emergency Medicine; PCP Nurse Practitioner; Visit Provider Internal Medicine
DX: Z68.43 Body mass index [BMI] 50.0-59.9, adult (principal); E66.01 Morbid (severe) obesity due to excess calories; I10 Essential (primary) hypertension; Z87.891 Personal history of nicotine dependence; I48.91 Unspecified atrial fibrillation; I45.6 Pre-excitation syndrome; K21.9 Gastro-esophageal reflux disease without esophagitis; Z79.899 Other long term (current) drug therapy
CPT/HCPCS: 36415; 71045; 80050; 80053; 83735; 84439; 84443; 84484; 85025; 93005; 99291; J1650; J2405; J3475; J7030

== ENCOUNTER 2024-03-22 21:14 | Emergency (ER) | payer OTHER, SELFPAY ==
[2024-03-22 21:23] VITALS: BP 158/88; PULSE 85; RESP 20; TEMP 36.7; O2SAT 96; BMI 53.6
--- NOTE | 2024-03-22 21:26 | ED_ITS ---
Discharge Plan Disposition Patient Disposition: Home, Self-Care Condition: Good Prescriptions Prescriptions: No Action ferrous sulfate [FeroSul] 325 mg (65 mg iron) tablet 325 mg PO DAILY lisinopril 10 mg tablet 10 mg PO DAILY Zyrtec 10 mg capsule 10 mg PO DAILYP PRN (Reason: Allergy Symptoms) omeprazole 40 MG capsule,delayed release(DR/EC) 40 mg PO DAILY metoprolol tartrate 100 mg tablet 100 mg PO BID chlorthalidone 25 mg tablet 25 mg PO DAILY ergocalciferol (vitamin D2) 1,250 mcg (50,000 unit) capsule 50,000 unit PO WEEKLY cholecalciferol (vitamin D3) 125 mcg (5,000 unit) capsule 5,000 unit PO DAILY multivitamin Tablet 1 tab PO DAILY calcium citrate 500 mg Tablet, Effervescent 500 mg PO BID vitamin B complex [Vitamin B-50 Complex] Tablet 1 tab PO DAILY vitamin A 10,000 unit Tablet 10,000 unit PO DAILY Referrals Follow up/Referrals: Jenae Whalen APRN [Primary Care Provider] - See instructions Activity Restrictions/Add. Instructions Additional Instructions/Restrictions: As we discussed, it appeared on the ultrasound that the spot on your belly area that is particularly tender was due to an injection close to a superficial vein of your belly area. I did not see any ongoing bleeding at this time. I recommend you contact the prescriber for your blood thinning medication and let them know that you have had some painful bruising relating to your blood thinning injections. I recommend you inject slightly more to the side of your belly area and slightly lower and aspirate if possible prior to injection of the blood thinner. Additionally, recommend you use cold compresses over the area and an abdominal binder as needed to help prevent any expanding bruising. This can be purchased at a drugstore. Please return with any new or worsening symptoms. Clinical Impressions Clinical Impression: Abdominal wall hematoma Instructions Patient Instructions: DI for Skin Abscess Print Language Print Language: Occitan Discharge ED Provider: Tino Sanon General Adult HPI General Chief complaint: Skin/Abscess/Foreign Body Stated complaint: knot and bruising on abdomen Time Seen by Provider: 03/22/24 21:26 History of Present Illness HPI narrative: Patient presents for evaluation of bruising sustained to her abdomen while injecting blood thinners for thromboembolic prevention following diagnosis of arrhythmia and Onbhu-Nuslbnvdf-Yfrul syndrome. She reports discomfort and worsening bruising over the course of the day today. No previous therapies. Family members have been injecting Lovenox. No syncope or presyncope or chest pain or hematemesis or melena or hematochezia. No changes in medications recently or new medications. No changes in dosing. Please note that above description of symptoms, in this electronic medical record under categorization of recalled from ER triage doctor by RN are reflective of an initial nursing assessment, however, is not reflective of my full history and physical exam that was personally taken and clarified. Consequentially, this preceding description of symptoms, which may include the patient's categorized chief complaint in the EMR, do not reflect my personal clinical impression, and the ultimate description of history of present illness and patient stated complaints should be deferred to this section of the note. Unless stated otherwise or congruent with this section of the note, additional signs, symptoms, or incongruence should be interpreted as inaccurate with my clinical impression. Related Data Home Medications ?Medication ?Instructions ?Recorded ?Confirmed omeprazole 40 mg capsule,delayed 40 mg PO DAILY 06/28/20 02/01/24 release ferrous sulfate 325 mg (65 mg 325 mg PO DAILY 12/14/22 02/01/24 iron) tablet (FeroSul) lisinopril 10 mg tablet 10 mg PO DAILY 12/14/22 02/01/24 cetirizine 10 mg capsule (Zyrtec) 10 mg PO DAILYP PRN Allergy 02/04/23 02/01/24 Symptoms calcium citrate 500 mg (2,376 mg) 500 mg PO BID 02/01/24 02/01/24 effervescent tablet chlorthalidone 25 mg tablet 25 mg PO DAILY 02/01/24 02/01/24 cholecalciferol (vitamin D3) 125 5,000 unit PO DAILY 02/01/24 02/01/24 mcg (5,000 unit) capsule ergocalciferol (vitamin D2) 1,250 50,000 unit PO WEEKLY 02/01/24 02/01/24 mcg (50,000 unit) capsule metoprolol tartrate 100 mg tablet 100 mg PO BID 02/01/24 02/01/24 multivitamin 1 tab PO DAILY 02/01/24 02/01/24 vitamin A 10,000 unit tablet 10,000 unit PO DAILY 02/01/24 02/01/24 vitamin B complex 1 tab PO DAILY 02/01/24 02/01/24 Allergies Allergy/AdvReac Type Severity Reaction Status Date / Time No Known Allergies Allergy Verified 03/30/23 10:05 [facility] Disclaimer: The information contained in this section may have been updated after the patient was seen, as this information can be updated by other users. Medical History (Updated 03/22/24 @ 21:51 by Tino Sanon MD) Shortness of Breath Chest pain Palpitations Hypertension History of Lkmql-Gocilvhlq-Fekjz (WPW) syndrome Atrial fibrillation with RVR Severe obesity (BMI >= 40) Abnormal bleeding in menstrual cycle GERD (gastroesophageal reflux disease) Surgical History History of surgery on left wrist Previous section Family History Mother Diabetes Hypertension Kidney disease Father Diabetes Hypertension Social History (Updated 02/01/24 @ 12:29 by Kimberly Vincent, BEN) Smoking Status: Never smoker alcohol intake: current alcohol intake frequency: holidays/special occasions only substance use type: denies use current occupational status: employed Travel in the last 8 weeks: None household members: family housing: house Other Medical History Have you received the Flu Vaccine for this season: No Have you received the Pneumonia Vaccine: No ROS Obtained: Yes other As per HPI Physical Exam General General appearance: alert and in no apparent distress Head Head exam: atraumatic and normocephalic Eye Eye exam: Present normal appearance Neck Neck exam: Present normal inspection Chest Chest inspection: Present normal inspection and symmetric chest wall rise Respiratory Respiratory exam: Present normal lung sounds bilaterally; Absent respiratory distress Cardiovascular Cardiovascular exam: Present regular rate and normal rhythm Abdominal Exam Abdominal exam: Present soft Neurological Exam Neurological exam: Present alert and oriented X3 Psychiatric Psychiatric exam: Present normal affect and normal mood Skin Skin exam: Present warm and dry Other Other exam information: Abdomen with scattered ecchymosis, nonperitonitic examination, hemostatic, Medical Decision Making Medical Records Medical records reviewed: Yes I reviewed the patient's medical records. Screening: Per USPSTF and CDC recommendations, given the prevalence of disease in our region, it is our hospital?s policy to screen for HIV and viral Hepatitis for all patients aged 18 and over and those with ongoing risk factors. Jay Inquiry Pt receiving controlled substance: No Vital Signs: 03/22/24 21:23 03/22/24 21:52 Temperature 98.0 F 98.0 F Temperature Source Oral Oral Pulse Rate 64 Pulse Rate [Left Radial] 85 Respiratory Rate 20 20 Blood Pressure 132/75 Blood Pressure [Right Arm] 158/88 H Blood Pressure Mean [Right Arm] 111 Blood Pressure Source Automatic Cuff Blood Pressure Source [Right Arm] Automatic Cuff Blood Pressure Position Sitting Blood Pressure Position [Right Arm] Supine 02 Sat by Pulse Oximetry 96 Oxygen Delivery Method Room Air Room Air Medical Decision Narrative: Patient with history and exam per above presenting for evaluation of abdominal wall ecchymosis in the setting of Lovenox injections. Diagnoses considered include hematoma, no clinical evidence to warrant further workup beyond history examination and ultrasound imaging of active extravasation. [id number] ultrasound imaging revealed no active extravasation into the abdomen. My clinical impression at this time is most consistent with abdominal wall hematoma. I discussed my clinical impression with patient and answered all questions. At this time, the evidence for any other entities in the differential is insufficient to warrant any further testing or ED observation. This was explained to the patient. The patient was advised that persistent or worsening symptoms require further evaluation. Critical Care Critical Care Time Critical Care Time: No
[2024-03-22 21:52] VITALS: BP 132/75; PULSE 64; RESP 20; TEMP 36.7; O2SAT 100
== END 2024-03-22 21:59 | disposition home or self-care (01) ==
PROVIDERS: Emergency Provider Emergency Medicine; PCP Nurse Practitioner
DX: S30.92XA Unspecified superficial injury of abdominal wall, initial encounter (principal); X58.XXXA Exposure to other specified factors, initial encounter
CPT/HCPCS: 99282

== ENCOUNTER 2024-07-13 15:00 | Outpatient (RCR) | payer OTHER, SELFPAY | END 2024-07-13 23:59 | disposition home or self-care (01) | LOC: PT 15:00 | PROVIDERS: Visit Provider Family Medicine | DX: M17.12 Unilateral primary osteoarthritis, left knee (principal); M23.232 Derangement of other medial meniscus due to old tear or injury, left knee | CPT/HCPCS: 97014; 97110; 97163; 97530; G0283 ==

== ENCOUNTER 2024-08-03 15:00 | Outpatient (RCR) | payer OTHER, SELFPAY | END 2024-08-03 23:59 | disposition home or self-care (01) | LOC: PT 15:00 | PROVIDERS: Visit Provider Family Medicine | DX: M17.12 Unilateral primary osteoarthritis, left knee (principal); M23.232 Derangement of other medial meniscus due to old tear or injury, left knee | CPT/HCPCS: 97110; 97530 ==

== ENCOUNTER 2024-10-12 14:34 | Emergency (ER) | payer OTHER, SELFPAY ==
[2024-10-12 14:37] VITALS: BP 181/46; PULSE 70; RESP 16; TEMP 36.4; O2SAT 98; BMI 46.7
--- OUTSIDE RECORDS SUMMARY | 2024-10-12 14:47 | XMS_ITS | Data Portability ---
Author Organization [facility] ADMIN Address [address] [place] [id number] Care Team Providers Care Broom Stitcher Name Role Phone [facility] Primary Care Provider Assessment No assessment recorded. Plan of Treatment Reminders Order Date Submit Date Provider Last Modified By Organization Details Last Modified Time Details Appointments OV EST 20 2024 03:20P M Jose Cisneros, DNP, LADIES SUIT OPERATOR, TOWER SWITCH OPERATOR-C Not available Not available Not available Lab copper, serum or plasma 2024 025 [email or web address] [facility], [address], [address], [place], [address], 07/27/2024 10:34:05 selenium , quantita tive, blood 2024 025 [facility], [address], [address], [place], [address], 07/27/2024 10:34:05 zinc, serum or plasma 2024 025 [email or web address] [facility], [address], [address], [place], [address], 07/27/2024 10:34:05 iron + TIBC + ferritin , serum 2024 025 [facility], [address], [address], [place], [address], 07/27/2024 10:34:05 folate, serum 2024 025 [facility], [address], [address], [place], [address], 07/27/2024 10:34:05 vitamin E, serum 2024 025 [email or web address] [facility], [address], [address], [place], [address], 07/27/2024 10:34:05 vitamin A (retinol ), serum 2024 025 [email or web address] [facility], [address], [address], [place], [address], 07/27/2024 10:34:06 prealbum in, serum 2024 025 [email or web address] [facility], [address], [address], [place], [address], 07/27/2024 10:34:06 thiamine , QN, blood 2024 025 [email or web address] [facility], [address], [address], [place], [address], 07/27/2024 10:34:06 methylma lonate, QN, serum or plasma 2024 025 [email or web address] [facility], [address], [address], [place], [address], 07/27/2024 10:34:06 vitamin D, 25-hydro xy, total, serum 2024 025 [email or web address] [facility], [address], [address], [place], [address], 07/27/2024 10:34:07 CBC w/ auto diff 2024 025 [facility], [address], [address], [place], [address], 07/27/2024 10:34:06 CMP, serum or plasma 2024 025 [email or web address] [facility], [address], [address], [place], [address], 07/27/2024 10:34:06 HbA1c (hemoglo bin A1c), blood 2024 025 [email or web address] [facility], [address], [address], [place], [address], 07/27/2024 10:34:06 TSH + free T4, serum 2024 025 [email or web address] [facility], [address], [address], [place], [address], 07/27/2024 10:34:07 lipid panel, serum 2024 025 [email or web address] [facility], [address], [address], [place], [address], 07/27/2024 10:34:07 copper, serum or plasma 2023 024 SKYLER [facility], [address], [address], [place], [address], 04/25/2024 14:37:36 selenium , quantita tive, blood 2023 024 SKYLER [facility], [address], [address], [place], [address], 04/25/2024 14:37:40 zinc, serum or plasma 2023 024 SKYLER [facility], [address], [address], [place], [address], 04/25/2024 14:37:37 iron + TIBC + ferritin , serum 2023 024 SKYLER [facility], [address], [address], [place], [address], 04/25/2024 14:37:20 folate, serum 2023 024 SKYLER [facility], [address], [address], [place], [address], 04/25/2024 14:37:30 vitamin E, serum 2023 024 SKYLER [facility], [address], [address], [place], [address], 04/25/2024 14:37:27 vitamin A (retinol ), serum 2023 024 SKYLER [facility], [address], [address], [place], [address], 04/25/2024 14:37:31 prealbum in, serum 2023 024 SKYLER [facility], [address], [address], [place], [address], 04/25/2024 14:37:38 thiamine , QN, blood 2023 024 SKYLER [facility], [address], [address], [place], [address], 04/25/2024 14:37:33 methylma lonate, QN, serum or plasma 2023 024 SKYLER [facility], [address], [address], [place], [address], 04/25/2024 14:37:35 vitamin D, 25-hydro xy, total, serum 2023 024 SKYLER [facility], [address], [address], [place], [address], 04/25/2024 14:37:32 CBC w/ auto diff 2023 024 SKYLER [facility], [address], [address], [place], [address], 04/25/2024 14:37:23 CMP, serum or plasma 2023 024 SKYLER [facility], [address], [address], [place], [address], 04/25/2024 14:37:24 HbA1c (hemoglo bin A1c), blood 2023 024 SKYLER [facility], [address], [address], [place], [address], 04/25/2024 14:37:28 TSH + free T4, serum 2023 024 SKYLER [facility], [address], [address], [place], [address], 04/25/2024 14:37:22 lipid panel, serum 2023 024 SKYLER [facility], [address], [address], [place], [address], 04/25/2024 14:37:26 folate, serum 2023 024 SKYLER [facility], [address], [address], [place], [address], 02/22/2024 20:36:35 prealbum in, serum 2023 024 SKYLER [facility], [address], [address], [place], [address], 02/22/2024 20:36:37 thiamine , QN, blood 2023 024 SKYLER [facility], [address], [address], [place], [address], 02/22/2024 20:36:37 methylma lonate, QN, serum or plasma 2023 024 SKYLER [facility], [address], [address], [place], [address], 02/22/2024 20:36:37 CBC w/ auto diff 2023 024 SKYLER [facility], [address], [address], [place], [address], 02/22/2024 20:36:34 CMP, serum or plasma 2023 024 SKYLER [facility], [address], [address], [place], [address], 02/22/2024 20:36:34 iron + TIBC + ferritin , serum 2023 024 SKYLER [facility], [address], [address], [place], [address], 02/22/2024 20:36:33 vitamin D, 25-hydro xy, total, serum 2023 024 SKYLER [facility], [address], [address], [place], [address], 02/22/2024 20:36:36 vitamin E, serum 2023 024 SKYLER [facility], [address], [address], [place], [address], 02/22/2024 20:36:35 vitamin A (retinol ), serum 2023 024 SKYLER [facility], [address], [address], [place], [address], 02/22/2024 20:36:36 TSH + free T4, serum 2023 024 SKYLER [facility], [address], [address], [place], [address], 02/22/2024 20:36:33 Referral None recorded . Procedures None recorded . Surgeries None recorded . Imaging None recorded . Medication Orders None recorded . Patient Targets Encounter Date Encounter Id Patient Goals Patient Target Last Modified By Organization Details Last Modified Time 1. Continue to follow 2-4 hour rule2. Continue to track intake3. Eat foods low in fat to decrease nausea4. Physical activity as tolerated [id number] Not available 02/17/2024 16:04:09 Patient InstructionsNo instructions recorded. Reason for Referral None Reported. Results Created Date Observation Date Name Description Value Unit Range Abnormal Flag Note LastModifiedBy Organization Detail LastModifiedTime 02/17/20 24 02/18/2024 FE+TI BC+FE R iron bind.cap.(TI BC) 210 ug/dL 250-45 0 below low normal Not Available [facility] ([facility]) [address] [facility], [place], [address], 02/22/2024 20:36:33 02/17/20 24 02/18/2024 FE+TI BC+FE R UIBC 179 ug/dL 131-42 5 normal Not Available [facility] ([facility]) [address] [facility], [place], [address], 02/22/2024 20:36:33 02/17/20 24 02/18/2024 FE+TI BC+FE R iron 31 ug/dL 27-159 normal Not Available [facility] ([facility]) [address] [place], [address], 02/22/2024 20:36:33 02/17/20 24 02/18/2024 FE+TI BC+FE R iron saturation 15 % 15-55 normal Not Available [facility] ([facility]) [address] [place], [address], 02/22/2024 20:36:33 02/17/20 24 02/18/2024 FE+TI BC+FE R ferritin 102 NG/mL 15-150 normal Not Available [facility] ([facility]) [address] [place], [address], 02/22/2024 20:36:33 02/17/20 24 02/18/2024 TSH+F REE T4 TSH 2.970 uIU/m L 0.450- 4.500 normal Not Available [facility] ([facility]) [address] [place], [address], 02/22/2024 20:36:33 02/17/20 24 02/18/2024 TSH+F REE T4 T4,free(dire ct) 1.28 NG/dL 0.82-1 .77 normal Not Available [facility] ([facility]) [address] [place], [address], 02/22/2024 20:36:33 02/17/20 24 02/18/2024 CBC WITH DIFFE RENTI AL/PL ATELE T WBC 5.0 x10e3 /uL 3.4-10 .8 normal Not Available [facility] ([facility]) [address] [place], [address], 02/22/2024 20:36:34 02/17/20 24 02/18/2024 CBC WITH DIFFE RENTI AL/PL ATELE T RBC 4.06 x10e6 /uL 3.77-5 .28 normal Not Available [facility] ([facility]) [address] [place], [address], 02/22/2024 20:36:34 02/17/20 24 02/18/2024 CBC WITH DIFFE RENTI AL/PL ATELE T hemoglobin 11.4 g/dL 11.1-1 5.9 normal Not Available [facility] ([facility]) [address] [place], [address], 02/22/2024 20:36:34 02/17/20 24 02/18/2024 CBC WITH DIFFE RENTI AL/PL ATELE T hematocrit 37.0 % 34.0-4 6.6 normal Not Available [facility] ([facility]) [address] [facility], [place], [address], 02/22/2024 20:36:34 02/17/20 24 02/18/2024 CBC WITH DIFFE RENTI AL/PL ATELE T MCV 91 fL 79-97 normal Not Available [facility] ([facility]) [address] [place], [address], 02/22/2024 20:36:34 02/17/20 24 02/18/2024 CBC WITH DIFFE RENTI AL/PL ATELE T MCH 28.1 pg 26.6-3 3.0 normal Not Available [facility] ([facility]) [address] [facility], [place], [address], 02/22/2024 20:36:34 02/17/20 24 02/18/2024 CBC WITH DIFFE RENTI AL/PL ATELE T MCHC 30.8 g/dL 31.5-3 5.7 below low normal Not Available [facility] ([facility]) [address] [facility], [place], [address], 02/22/2024 20:36:34 02/17/20 24 02/18/2024 CBC WITH DIFFE RENTI AL/PL ATELE T RDW 14.4 % 11.7-1 5.4 Not Available [facility] ([facility]) [address] [place], [address], 02/22/2024 20:36:34 02/17/20 24 02/18/2024 CBC WITH DIFFE RENTI AL/PL ATELE T platelets 188 x10e3 /uL 150-45 0 normal Not Available [facility] ([facility]) [address] [place], [address], 02/22/2024 20:36:34 02/17/20 24 02/18/2024 CBC WITH DIFFE RENTI AL/PL ATELE T neutrophils 49 % not estab. normal Not Available [facility] ([facility]) [address] [facility], [place], [address], 02/22/2024 20:36:34 02/17/20 24 02/18/2024 CBC WITH DIFFE RENTI AL/PL ATELE T lymphs 40 % not estab. normal Not Available [facility] ([facility]) [address] [facility], [place], [address], 02/22/2024 20:36:34 02/17/20 24 02/18/2024 CBC WITH DIFFE RENTI AL/PL ATELE T monocytes 9 % not estab. normal Not Available [facility] ([facility]) [address] [facility], [place], [address], 02/22/2024 20:36:34 02/17/20 24 02/18/2024 CBC WITH DIFFE RENTI AL/PL ATELE T eos 2 % not estab. normal Not Available [facility] ([facility]) [address] [facility], [place], [address], 02/22/2024 20:36:34 02/17/20 24 02/18/2024 CBC WITH DIFFE RENTI AL/PL ATELE T basos 0 % not estab. normal Not Available [facility] ([facility]) [address] [facility], [place], [address], 02/22/2024 20:36:34 02/17/20 24 02/18/2024 CBC WITH DIFFE RENTI AL/PL ATELE T immature cells TOWER SWITCH OPERATOR Not Available [facility] ([facility]) [address] [facility], [place], [address], 02/22/2024 20:36:34 02/17/20 24 02/18/2024 CBC WITH DIFFE RENTI AL/PL ATELE T neutrophils (absolute) 2.4 x10e3 /uL 1.4-7. 0 normal Not Available [facility] ([facility]) [address] [facility], [place], [address], 02/22/2024 20:36:34 02/17/20 24 02/18/2024 CBC WITH DIFFE RENTI AL/PL ATELE T lymphs (absolute) 2.0 x10e3 /uL 0.7-3. 1 normal Not Available [facility] ([facility]) [address] [facility], [place], [address], 02/22/2024 20:36:34 02/17/20 24 02/18/2024 CBC WITH DIFFE RENTI AL/PL ATELE T monocytes(ab solute) 0.4 x10e3 /uL 0.1-0. 9 normal Not Available [facility] ([facility]) [address] [facility], [place], [address], 02/22/2024 20:36:34 02/17/20 24 02/18/2024 CBC WITH DIFFE RENTI AL/PL ATELE T eos (absolute) 0.1 x10e3 /uL 0.0-0. 4 normal Not Available [facility] ([facility]) [address] [facility], [place], [address], 02/22/2024 20:36:34 02/17/20 24 02/18/2024 CBC WITH DIFFE RENTI AL/PL ATELE T baso (absolute) 0.0 x10e3 /uL 0.0-0. 2 normal Not Available [facility] ([facility]) [address] [place], [address], 02/22/2024 20:36:34 02/17/20 24 02/18/2024 CBC WITH DIFFE RENTI AL/PL ATELE T immature granulocytes 0 % not estab. Not Available [facility] ([facility]) [address] [place], [address], 02/22/2024 20:36:34 02/17/20 24 02/18/2024 CBC WITH DIFFE RENTI AL/PL ATELE T immature grans (abs) 0.0 x10e3 /uL 0.0-0. 1 Not Available [facility] ([facility]) [address] [facility], [place], [address], 02/22/2024 20:36:34 02/17/20 24 02/18/2024 CBC WITH DIFFE RENTI AL/PL ATELE T NRBC TOWER SWITCH OPERATOR Not Available [facility] ([facility]) [address] [facility], [place], [address], 02/22/2024 20:36:34 02/17/20 24 02/18/2024 CBC WITH DIFFE RENTI AL/PL ATELE T hematology comments: TOWER SWITCH OPERATOR Not Available [facility] ([facility]) [address] [facility], [place], [address], 02/22/2024 20:36:34 02/17/20 24 02/18/2024 COMP. METAB OLIC PANEL (14) glucose 95 mg/dL 70-99 normal Not Available [facility] ([facility]) [address] [facility], [place], [address], 02/22/2024 20:36:34 02/17/20 24 02/18/2024 COMP. METAB OLIC PANEL (14) BUN 8 mg/dL 6-24 normal Not Available [facility] ([facility]) [address] [facility], [place], [address], 02/22/2024 20:36:34 02/17/20 24 02/18/2024 COMP. METAB OLIC PANEL (14) creatinine 0.75 mg/dL 0.57-1 .00 normal Not Available [facility] ([facility]) [address] [facility], [place], [address], 02/22/2024 20:36:34 02/17/20 24 02/18/2024 COMP. METAB OLIC PANEL (14) eGFR 103 mL/mi n/1.7 3 >59 normal Not Available [facility] ([facility]) [address] [place], [address], 02/22/2024 20:36:34 02/17/20 24 02/18/2024 COMP. METAB OLIC PANEL (14) BUN/creatini ne ratio 11 9-23 normal Not Available [facility] ([facility]) [address] [facility] [place], [address], 02/22/2024 20:36:34 02/17/20 24 02/18/2024 COMP. METAB OLIC PANEL (14) sodium 140 mmol/ L 134-14 4 normal Not Available [facility] ([facility]) [address] [place], [address], 02/22/2024 20:36:34 02/17/20 24 02/18/2024 COMP. METAB OLIC PANEL (14) potassium 3.7 mmol/ L 3.5-5. 2 normal Not Available [facility] ([facility]) [address] [place], [address], 02/22/2024 20:36:34 02/17/20 24 02/18/2024 COMP. METAB OLIC PANEL (14) chloride 107 mmol/ L 96-106 above high normal Not Available [facility] ([facility]) [address] [place], [address], 02/22/2024 20:36:34 02/17/20 24 02/18/2024 COMP. METAB OLIC PANEL (14) carbon dioxide, total 21 mmol/ L 20-29 normal Not Available [facility] ([facility]) [address] [place], [address], 02/22/2024 20:36:34 02/17/20 24 02/18/2024 COMP. METAB OLIC PANEL (14) calcium 8.3 mg/dL 8.7-10 .2 below low normal Not Available [facility] ([facility]) [address] [place], [address], 02/22/2024 20:36:34 02/17/20 24 02/18/2024 COMP. METAB OLIC PANEL (14) protein, total 6.1 g/dL 6.0-8. 5 normal Not Available [facility] ([facility]) [address] [facility] [place], [address], 02/22/2024 20:36:34 02/17/20 24 02/18/2024 COMP. METAB OLIC PANEL (14) albumin 3.7 g/dL 3.9-4. 9 below low normal Not Available [facility] ([facility]) [address] [place], [address], 02/22/2024 20:36:34 02/17/20 24 02/18/2024 COMP. METAB OLIC PANEL (14) globulin, total 2.4 g/dL 1.5-4. 5 Not Available [facility] ([facility]) [address] [place], [address], 02/22/2024 20:36:34 02/17/20 24 02/18/2024 COMP. METAB OLIC PANEL (14) bilirubin, total 0.4 mg/dL 0.0-1. 2 normal Not Available [facility] ([facility]) [address] [place], [address], 02/22/2024 20:36:34 02/17/20 24 02/18/2024 COMP. METAB OLIC PANEL (14) alkaline phosphatase 62 IU/L 44-121 normal Not Available [facility] ([facility]) [address] [place], [address], 02/22/2024 20:36:34 02/17/20 24 02/18/2024 COMP. METAB OLIC PANEL (14) AST (SGOT) 54 IU/L 0-40 above high normal Not Available [facility] ([facility]) [address] [place], [address], 02/22/2024 20:36:34 02/17/20 24 02/18/2024 COMP. METAB OLIC PANEL (14) ALT (SGPT) 59 IU/L 0-32 above high normal Not Available [facility] ([facility]) [address] [facility], [place], [address], 02/22/2024 20:36:34 02/17/20 24 02/22/2024 VITAM IN E vitamin E(alpha tocopherol) 8.9 mg/L 7.0-25 .1 Not Available [facility] ([facility]) [address] [facility], [place], [address], 02/22/2024 20:36:35 02/17/20 24 02/22/2024 VITAM IN E vitamin E(gamma tocopherol) 1.1 mg/L 0.5-5. 5 Refer ence inter vals for alpha and gamma -toco phero l deter mined from [facility] and Nutri tion Exami natio n Surve y, 2004- 2005. Indiv idual s with alpha -toco phero l level s less than 5.0 mg/L are consi dered vitam in E defic ient. Not Available [facility] ([facility]) [address] [facility], [place], [address], 02/22/2024 20:36:35 02/17/20 24 02/18/2024 FOLAT E (FOLI C ACID) , SERUM folate (folic acid), serum 12.9 NG/mL >3.0 normal A serum folat e joshua ntrat ion of less than 3.1 ng/mL is consi dered to repre sent clini leah defic iency . Not Available [facility] ([facility]) [address] [facility], [place], [address], 02/22/2024 20:36:35 02/17/20 24 02/22/2024 VITAM IN A, SERUM vitamin A 21.9 ug/dL 20.1-6 2.0 Refer ence inter vals for vitam in A deter mined from [facility] inter nal studi es. Indiv idual s with vitam in A less than 20 ug/dL are consi dered vitam in A defic ient and those with serum joshua ntrat ions less than 10 ug/dL are consi dered sever marsha defic ient. This test was devel oped and its perfo rmanc e alicia cteri stics deter mined by [facility]. It has not been clear ed or appro dilshad by the Food and Drug Admin istra tion. Not Available [facility] ([facility]) [address] [facility], [place], [address], 02/22/2024 20:36:36 02/17/20 24 02/18/2024 VITAM IN D, 25-HY DROXY vitamin D, 25-hydroxy 38.1 NG/mL 30.0-1 00.0 Vitam in D defic iency has been defin ed by the Insti tute of Medic ine and an Endoc rine Socie ty pract ice guide line as a level of serum 25-OH vitam in D less than 20 ng/mL (1,2) . The Endoc rine Socie ty went on to furth er defin e vitam in D insuf ficie ncy as a level betwe en 21 and 29 ng/mL (2). 1. IOM (Inst itute of Medic ine). 2009. Dieta ry refer ence intak es for calci um and D. Emma moore [place]: The Natio nal [facility] Press . 2. Yang greene MF, María ey [place], Cyrus off-F errar i HO, et al. Evalu ation , treat ment, and preve ntion of vitam in D defic iency : an Endoc rine Socie ty clini leah pract ice guide line. JCEM. 2010; 96(7) :1911 -30. Not Available [facility] ([facility]) [address] [facility], [place], [address], 02/22/2024 20:36:36 02/17/20 24 02/21/2024 VITAM IN B1 (THIA MINE) , BLOOD vit. B1, whole blood 106.0 nmol/ L 66.5-2 00.0 Not Available [facility] ([facility]) [address] [place], [address], 02/22/2024 20:36:37 02/17/20 24 02/22/2024 METHY LMALO MARGARET ACID, SERUM methylmaloni c acid, serum 193 nmol/ L 0-378 Not Available [facility] ([facility]) [address] [place], [address], 02/22/2024 20:36:37 02/17/20 24 02/18/2024 PREAL BUMIN prealbumin 12 mg/dL 14-35 below low normal Not Available [facility] ([facility]) [address] [place], [address], 02/22/2024 20:36:37 04/18/20 24 04/19/2024 FE+TI BC+FE R iron bind.cap.(TI BC) 263 ug/dL 250-45 0 normal Not Available [facility] ([facility]) [address] [place], [address], 04/25/2024 14:37:20 04/18/20 24 04/19/2024 FE+TI BC+FE R UIBC 218 ug/dL 131-42 5 normal Not Available [facility] ([facility]) [address] [place], [address], 04/25/2024 14:37:20 04/18/20 24 04/19/2024 FE+TI BC+FE R iron 45 ug/dL 27-159 normal Not Available [facility] ([facility]) [address] [place], [address], 04/25/2024 14:37:20 04/18/20 24 04/19/2024 FE+TI BC+FE R iron saturation 17 % 15-55 normal Not Available [facility] ([facility]) [address] [facility], [place], [address], 04/25/2024 14:37:20 04/18/20 24 04/19/2024 FE+TI BC+FE R ferritin 95 NG/mL 15-150 normal Not Available [facility] ([facility]) [address] [facility], [place], [address], 04/25/2024 14:37:20 04/18/20 24 04/19/2024 TSH+F REE T4 TSH 1.950 uIU/m L 0.450- 4.500 normal Not Available [facility] ([facility]) [address] [place], [address], 04/25/2024 14:37:22 04/18/20 24 04/19/2024 TSH+F REE T4 T4,free(dire ct) 1.32 NG/dL 0.82-1 .77 normal Not Available [facility] ([facility]) [address] [place], [address], 04/25/2024 14:37:22 04/18/20 24 04/19/2024 CBC WITH DIFFE RENTI AL/PL ATELE T WBC 5.8 x10e3 /uL 3.4-10 .8 normal Not Available [facility] ([facility]) [address] [place], [address], 04/25/2024 14:37:23 04/18/20 24 04/19/2024 CBC WITH DIFFE RENTI AL/PL ATELE T RBC 4.18 x10e6 /uL 3.77-5 .28 normal Not Available [facility] ([facility]) [address] [place], [address], 04/25/2024 14:37:23 04/18/20 24 04/19/2024 CBC WITH DIFFE RENTI AL/PL ATELE T hemoglobin 11.9 g/dL 11.1-1 5.9 normal Not Available [facility] ([facility]) [address] [facility], [place], [address], 04/25/2024 14:37:23 04/18/20 24 04/19/2024 CBC WITH DIFFE RENTI AL/PL ATELE T hematocrit 37.5 % 34.0-4 6.6 normal Not Available [facility] ([facility]) [address] [facility], [place], [address], 04/25/2024 14:37:23 04/18/20 24 04/19/2024 CBC WITH DIFFE RENTI AL/PL ATELE T MCV 90 fL 79-97 normal Not Available [facility] ([facility]) [address] [facility], [place], [address], 04/25/2024 14:37:23 04/18/20 24 04/19/2024 CBC WITH DIFFE RENTI AL/PL ATELE T MCH 28.5 pg 26.6-3 3.0 normal Not Available [facility] ([facility]) [address] [facility], [place], [address], 04/25/2024 14:37:23 04/18/20 24 04/19/2024 CBC WITH DIFFE RENTI AL/PL ATELE T MCHC 31.7 g/dL 31.5-3 5.7 normal Not Available [facility] ([facility]) [address] [facility], [place], [address], 04/25/2024 14:37:23 04/18/20 24 04/19/2024 CBC WITH DIFFE RENTI AL/PL ATELE T RDW 14.4 % 11.7-1 5.4 Not Available [facility] ([facility]) [address] [facility], [place], [address], 04/25/2024 14:37:23 04/18/20 24 04/19/2024 CBC WITH DIFFE RENTI AL/PL ATELE T platelets 242 x10e3 /uL 150-45 0 normal Not Available [facility] ([facility]) [address] [facility], [place], [address], 04/25/2024 14:37:23 04/18/20 24 04/19/2024 CBC WITH DIFFE RENTI AL/PL ATELE T neutrophils 51 % not estab. normal Not Available [facility] ([facility]) [address] [facility], [place], [address], 04/25/2024 14:37:23 04/18/20 24 04/19/2024 CBC WITH DIFFE RENTI AL/PL ATELE T lymphs 39 % not estab. normal Not Available [facility] ([facility]) [address] [facility], [place], [address], 04/25/2024 14:37:23 04/18/20 24 04/19/2024 CBC WITH DIFFE RENTI AL/PL ATELE T monocytes 7 % not estab. normal Not Available [facility] ([facility]) [address] [facility], [place], [address], 04/25/2024 14:37:23 04/18/20 24 04/19/2024 CBC WITH DIFFE RENTI AL/PL ATELE T eos 2 % not estab. normal Not Available [facility] ([facility]) [address] [facility], [place], [address], 04/25/2024 14:37:23 04/18/20 24 04/19/2024 CBC WITH DIFFE RENTI AL/PL ATELE T basos 1 % not estab. normal Not Available [facility] ([facility]) [address] [facility], [place], [address], 04/25/2024 14:37:23 04/18/20 24 04/19/2024 CBC WITH DIFFE RENTI AL/PL ATELE T immature cells TOWER SWITCH OPERATOR Not Available [facility] ([facility]) [address] [facility], [place], [address], 04/25/2024 14:37:23 04/18/20 24 04/19/2024 CBC WITH DIFFE RENTI AL/PL ATELE T neutrophils (absolute) 3.0 x10e3 /uL 1.4-7. 0 normal Not Available [facility] ([facility]) [address] [place], [address], 04/25/2024 14:37:23 04/18/20 24 04/19/2024 CBC WITH DIFFE RENTI AL/PL ATELE T lymphs (absolute) 2.3 x10e3 /uL 0.7-3. 1 normal Not Available [facility] ([facility]) [address] [place], [address], 04/25/2024 14:37:23 04/18/20 24 04/19/2024 CBC WITH DIFFE RENTI AL/PL ATELE T monocytes(ab solute) 0.4 x10e3 /uL 0.1-0. 9 normal Not Available [facility] ([facility]) [address] [place], [address], 04/25/2024 14:37:23 04/18/20 24 04/19/2024 CBC WITH DIFFE RENTI AL/PL ATELE T eos (absolute) 0.1 x10e3 /uL 0.0-0. 4 normal Not Available [facility] ([facility]) [address] [place], [address], 04/25/2024 14:37:23 04/18/20 24 04/19/2024 CBC WITH DIFFE RENTI AL/PL ATELE T baso (absolute) 0.0 x10e3 /uL 0.0-0. 2 normal Not Available [facility] ([facility]) [address] [place], [address], 04/25/2024 14:37:23 04/18/20 24 04/19/2024 CBC WITH DIFFE RENTI AL/PL ATELE T immature granulocytes 0 % not estab. Not Available [facility] ([facility]) [address] [place], [address], 04/25/2024 14:37:23 04/18/20 24 04/19/2024 CBC WITH DIFFE RENTI AL/PL ATELE T immature grans (abs) 0.0 x10e3 /uL 0.0-0. 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 METAB OLIC PANEL (14) glucose 91 mg/dL 70-99 normal Not Available [facility] ([facility]) [address] [facility], [place], [address], 04/25/2024 14:37:24 04/18/20 24 04/19/2024 COMP. METAB OLIC PANEL (14) BUN 8 mg/dL 6-24 normal Not Available [facility] ([facility]) [address] [facility], [place], [address], 04/25/2024 14:37:24 04/18/20 24 04/19/2024 COMP. METAB OLIC PANEL (14) creatinine 0.76 mg/dL 0.57-1 .00 normal Not Available [facility] ([facility]) [address] [facility], [place], [address], 04/25/2024 14:37:24 04/18/20 24 04/19/2024 COMP. METAB OLIC PANEL (14) eGFR 102 mL/mi n/1.7 3 >59 normal Not Available [facility] ([facility]) [address] [facility], [place], [address], 04/25/2024 14:37:24 04/18/20 24 04/19/2024 COMP. METAB OLIC PANEL (14) BUN/creatini ne ratio 11 9-23 normal Not Available [facility] ([facility]) [address] [facility], [place], [address], 04/25/2024 14:37:24 04/18/20 24 04/19/2024 COMP. METAB OLIC PANEL (14) sodium 141 mmol/ L 134-14 4 normal Not Available [facility] ([facility]) [address] [facility], [place], [address], 04/25/2024 14:37:24 04/18/20 24 04/19/2024 COMP. METAB OLIC PANEL (14) potassium 4.1 mmol/ L 3.5-5. 2 normal Not Available [facility] ([facility]) [address] [place], [address], 04/25/2024 14:37:24 04/18/20 24 04/19/2024 COMP. METAB OLIC PANEL (14) chloride 106 mmol/ L 96-106 normal Not Available [facility] ([facility]) [address] [place], [address], 04/25/2024 14:37:24 04/18/20 24 04/19/2024 COMP. METAB OLIC PANEL (14) carbon dioxide, total 22 mmol/ L 20-29 normal Not Available [facility] ([facility]) [address] [place], [address], 04/25/2024 14:37:24 04/18/20 24 04/19/2024 COMP. METAB OLIC PANEL (14) calcium 9.0 mg/dL 8.7-10 .2 normal Not Available [facility] ([facility]) [address] [facility] [place], [address], 04/25/2024 14:37:24 04/18/20 24 04/19/2024 COMP. METAB OLIC PANEL (14) protein, total 6.8 g/dL 6.0-8. 5 normal Not Available [facility] ([facility] [address] [facility] [place] [address], 04/25/2024 14:37:24 04/18/20 24 04/19/2024 COMP. METAB OLIC PANEL (14) albumin 4.2 g/dL 3.9-4. 9 normal Not Available [facility] ([facility]) [address] [place], [address], 04/25/2024 14:37:24 04/18/20 24 04/19/2024 COMP. METAB OLIC PANEL (14) globulin, total 2.6 g/dL 1.5-4. 5 Not Available [facility] ([facility] [address] [facility] [place], [address], 04/25/2024 14:37:24 04/18/20 24 04/19/2024 COMP. METAB OLIC PANEL (14) bilirubin, total 0.5 mg/dL 0.0-1. 2 normal Not Available [facility] ([facility]) [address] [facility] [place], [address], 04/25/2024 14:37:24 04/18/20 24 04/19/2024 COMP. METAB OLIC PANEL (14) alkaline phosphatase 90 IU/L 44-121 normal Not Available [facility] ([facility]) [address] [place], [address], 04/25/2024 14:37:24 04/18/20 24 04/19/2024 COMP. METAB OLIC PANEL (14) AST (SGOT) 33 IU/L 0-40 normal Not Available [facility] ([facility]) [address] [facility], [place], [address], 04/25/2024 14:37:24 04/18/20 24 04/19/2024 COMP. METAB OLIC PANEL (14) ALT (SGPT) 36 IU/L 0-32 above high normal Not Available [facility] ([facility]) [address] [facility], [place], [address], 04/25/2024 14:37:24 04/18/20 24 04/19/2024 LIPID PANEL cholesterol, total 159 mg/dL 100-19 9 normal Not Available [facility] ([facility]) [address] [place], [address], 04/25/2024 14:37:26 04/18/20 24 04/19/2024 LIPID PANEL triglyceride s 154 mg/dL 0-149 above high normal Not Available [facility] ([facility]) [address] [place], [address], 04/25/2024 14:37:26 04/18/20 24 04/19/2024 LIPID PANEL HDL cholesterol 39 mg/dL >39 below low normal Not Available [facility] ([facility]) [address] [facility], [place], [address], 04/25/2024 14:37:26 04/18/20 24 04/19/2024 LIPID PANEL VLDL cholesterol leah 27 mg/dL 5-40 Not Available [facility] ([facility]) [address] [place], [address], 04/25/2024 14:37:26 04/18/20 24 04/19/2024 LIPID PANEL LDL chol calc ([facility]) 93 mg/dL 0-99 Not Available [facility] ([facility]) [address] [place], [address], 04/25/2024 14:37:26 04/18/20 24 04/19/2024 LIPID PANEL 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 5 Refer ence inter vals for alpha and gamma -toco phero l deter mined from [facility] and Nutri tion Exami natio n Surve y, 2004- 2005. Indiv idual s with alpha -toco phero l level s less than 5.0 mg/L are consi dered vitam in E defic ient. Not Available [facility] ([facility]) [address] [facility], [place], [address], 04/25/2024 14:37:27 04/18/20 24 04/19/2024 HEMOG LOBIN A1C hemoglobin A1C 5.3 % 4.8-5. 6 normal Predi abete s: 5.7 - 6.4 Diabe antonette: >6.4 Glyce marisela contr ol for adult s with diabe antonette: <7.0 Not Available [facility] ([facility]) [address] [facility], [place], [address], 04/25/2024 14:37:28 04/18/20 24 04/19/2024 FOLAT E (FOLI C ACID) , SERUM folate (folic acid), serum 13.0 NG/mL >3.0 normal A serum folat e joshua ntrat ion of less than 3.1 ng/mL is consi dered to repre sent clini leah defic iency . Not Available [facility] ([facility]) [address] [facility], [place], [address], 04/25/2024 14:37:29 04/18/20 24 04/21/2024 VITAM IN A, SERUM vitamin A 41.6 ug/dL 20.1-6 2.0 Refer ence inter vals for vitam in A deter mined from [facility] inter nal studi es. Indiv idual s with vitam in A less than 20 ug/dL are consi dered vitam in A defic ient and those with serum joshua ntrat ions less than 10 ug/dL are consi dered sever marsha defic ient. This test was devel oped and its perfo rmanc e alicia cteri stics deter mined by [facility]. It has not been clear ed or appro dilshad by the Food and Drug Admin istra tion. Not Available [facility] ([facility]) [address] [facility], [place], [address], 04/25/2024 14:37:31 04/18/20 24 04/19/2024 VITAM IN D, 25-HY DROXY vitamin D, 25-hydroxy 32.4 NG/mL 30.0-1 00.0 Vitam in D defic iency has been defin ed by the Insti tute of Medic ine and an Endoc rine Socie ty pract ice guide line as a level of serum 25-OH vitam in D less than 20 ng/mL (1,2) . The Endoc rine Socie ty went on to furth er defin e vitam in D insuf ficie ncy as a level betwe en 21 and 29 ng/mL (2). 1. IOM (Inst itute of Medic ine). 2010. Dieta ry refer ence intak es for calci um and D. Emma moore [place]: The [facility] Press . 2. Yang greene [place], María chiang [place], Cyrus off-F gatito i HO, et al. Evalu ation , treat ment, and preve ntion of vitam in D defic iency : an Endoc rine Socie ty clini leah pract ice guide line. JCEM. 2010; 96(7) :1911 -30. Not Available [facility] ([facility]) [address] [facility], [place], [address], 04/25/2024 14:37:32 04/18/20 24 04/22/2024 VITAM IN B1 (THIA MINE) , BLOOD vit. B1, whole blood 153.0 nmol/ L 66.5-2 00.0 Not Available [facility] ([facility]) [address] [facility], [place], [address], 04/25/2024 14:37:33 04/18/20 24 04/24/2024 METHY LMALO MARGARET ACID, SERUM methylmaloni c acid, serum 176 nmol/ L 0-378 Not Available [facility] ([facility]) [address] [facility], [place], [address], 04/25/2024 14:37:35 04/18/20 24 04/21/2024 COPPE R, SERUM OR PLASM A copper, serum or plasma 129 ug/dL 80-158 Detec tion Limit = 5 Not Available [facility] ([facility]) [address] [facility], [place], [address], 04/25/2024 14:37:36 04/18/20 24 04/21/2024 ZINC, PLASM A OR SERUM zinc, plasma or serum 82 ug/dL 44-115 normal Detec tion Limit = 5 Not Available [facility] ([facility]) [address] [facility], [place], [address], 04/25/2024 14:37:37 04/18/20 24 04/19/2024 PREAL BUMIN prealbumin 15 mg/dL 14-35 Not Available [facility] ([facility]) [address] [facility], [place], [address], 04/25/2024 14:37:38 04/18/20 24 04/25/2024 SELEN IUM, BLOOD selenium, blood 139 ug/L 100-34 0 Detec tion Limit = 10 Not Available [facility] ([facility]) [address] [place], [address], 04/25/2024 14:37:39 07/20/19 25 07/21/2024 FE+TI BC+FE R iron bind.cap.(TI BC) 290 ug/dL 250-45 0 normal Not Available [facility] ([facility]) [address] [place], [address], 07/27/2024 18:36:43 07/20/19 25 07/21/2024 FE+TI BC+FE R UIBC 228 ug/dL 131-42 5 normal Not Available [facility] ([facility]) [address] [place], [address], 07/27/2024 18:36:43 07/20/19 25 07/21/2024 FE+TI BC+FE R iron 62 ug/dL 27-159 normal Not Available [facility] ([facility]) [address] [place], [address], 07/27/2024 18:36:43 07/20/19 25 07/21/2024 FE+TI BC+FE R iron saturation 21 % 15-55 normal Not Available [facility] ([facility]) [address] [place], [address], 07/27/2024 18:36:43 07/20/19 25 07/21/2024 FE+TI BC+FE R ferritin 49 NG/mL 15-150 normal Not Available [facility] ([facility]) [address] [place], [address], 07/27/2024 18:36:43 07/20/19 25 07/21/2024 TSH+F REE T4 TSH 2.930 uIU/m L 0.450- 4.500 normal Not Available [facility] ([facility]) [address] [place], [address], 07/27/2024 18:36:44 07/20/19 25 07/21/2024 TSH+F REE T4 T4,free(dire ct) 1.21 NG/dL 0.82-1 .77 normal Not Available [facility] ([facility]) [address] [place], [address], 07/27/2024 18:36:44 07/20/19 25 07/21/2024 CBC WITH DIFFE RENTI AL/PL ATELE T WBC 6.3 x10e3 /uL 3.4-10 .8 normal Not Available [facility] ([facility]) [address] [place], [address], 07/27/2024 18:36:45 07/20/19 25 07/21/2024 CBC WITH DIFFE RENTI AL/PL ATELE T RBC 4.24 x10e6 /uL 3.77-5 .28 normal Not Available [facility] ([facility]) [address] [place], [address], 07/27/2024 18:36:45 07/20/19 25 07/21/2024 CBC WITH DIFFE RENTI AL/PL ATELE T hemoglobin 12.0 g/dL 11.1-1 5.9 normal Not Available [facility] ([facility]) [address] [place], [address], 07/27/2024 18:36:45 07/20/19 25 07/21/2024 CBC WITH DIFFE RENTI AL/PL ATELE T hematocrit 36.9 % 34.0-4 6.6 normal Not Available [facility] ([facility]) [address] [place], [address], 07/27/2024 18:36:45 07/20/19 25 07/21/2024 CBC WITH DIFFE RENTI AL/PL ATELE T MCV 87 fL 79-97 normal Not Available [facility] ([facility]) [address] [place], [address], 07/27/2024 18:36:45 07/20/19 25 07/21/2024 CBC WITH DIFFE RENTI AL/PL ATELE T MCH 28.3 pg 26.6-3 3.0 normal Not Available [facility] ([facility]) [address] [place], [address], 07/27/2024 18:36:45 07/20/19 25 07/21/2024 CBC WITH DIFFE RENTI AL/PL ATELE T MCHC 32.5 g/dL 31.5-3 5.7 normal Not Available [facility] ([facility]) [address] [place], [address], 07/27/2024 18:36:45 07/20/19 25 07/21/2024 CBC WITH DIFFE RENTI AL/PL ATELE T RDW 13.0 % 11.7-1 5.4 Not Available [facility] ([facility]) [address] [place], [address], 07/27/2024 18:36:45 07/20/19 25 07/21/2024 CBC WITH DIFFE RENTI AL/PL ATELE T platelets 237 x10e3 /uL 150-45 0 normal Not Available [facility] ([facility]) [address] [place], [address], 07/27/2024 18:36:45 07/20/19 25 07/21/2024 CBC WITH DIFFE RENTI AL/PL ATELE T neutrophils 55 % not estab. normal Not Available [facility] ([facility]) [address] [place], [address], 07/27/2024 18:36:45 07/20/19 25 07/21/2024 CBC WITH DIFFE RENTI AL/PL ATELE T lymphs 34 % not estab. normal Not Available [facility] ([facility]) [address] [place], [address], 07/27/2024 18:36:45 07/20/19 25 07/21/2024 CBC WITH DIFFE RENTI AL/PL ATELE T monocytes 8 % not estab. normal Not Available [facility] ([facility]) [address] [place], [address], 07/27/2024 18:36:45 07/20/19 25 07/21/2024 CBC WITH DIFFE RENTI AL/PL ATELE T eos 2 % not estab. normal Not Available [facility] ([facility]) [address] [facility], [place], [address], 07/27/2024 18:36:45 07/20/19 25 07/21/2024 CBC WITH DIFFE RENTI AL/PL ATELE T basos 1 % not estab. 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 0 normal Not Available [facility] ([facility]) [address] [place], [address], 07/27/2024 18:36:45 07/20/19 25 07/21/2024 CBC WITH DIFFE RENTI AL/PL ATELE T lymphs (absolute) 2.2 x10e3 /uL 0.7-3. 1 normal Not Available [facility] ([facility]) [address] [place], [address], 07/27/2024 18:36:45 07/20/19 25 07/21/2024 CBC WITH DIFFE RENTI AL/PL ATELE T monocytes(ab solute) 0.5 x10e3 /uL 0.1-0. 9 normal Not Available [facility] ([facility]) [address] [place], [address], 07/27/2024 18:36:45 07/20/19 25 07/21/2024 CBC WITH DIFFE RENTI AL/PL ATELE T eos (absolute) 0.1 x10e3 /uL 0.0-0. 4 normal Not Available [facility] ([facility]) [address] [facility], [place], [address], 07/27/2024 18:36:45 07/20/19 25 07/21/2024 CBC WITH DIFFE RENTI AL/PL ATELE T baso (absolute) 0.1 x10e3 /uL 0.0-0. 2 normal Not Available [facility] ([facility]) [address] [place], [address], 07/27/2024 18:36:45 07/20/19 25 07/21/2024 CBC WITH DIFFE RENTI AL/PL ATELE T immature granulocytes 0 % not estab. Not Available [facility] ([facility]) [address] [place], [address], 07/27/2024 18:36:45 07/20/19 25 07/21/2024 CBC WITH DIFFE RENTI AL/PL ATELE T immature grans (abs) 0.0 x10e3 /uL 0.0-0. 1 Not Available [facility] ([facility]) [address] [place], [address], 07/27/2024 18:36:45 07/20/19 25 07/21/2024 CBC WITH DIFFE RENTI AL/PL ATELE T NRBC TOWER SWITCH OPERATOR Not Available [facility] ([facility]) [address] [place], [address], 07/27/2024 18:36:45 07/20/19 25 07/21/2024 CBC WITH DIFFE COLINTI AL/PL ATELE T hematology comments: TOWER SWITCH OPERATOR Not Available [facility] ([facility]) [address] [facility], [place], [address], 07/27/2024 18:36:45 07/20/19 25 07/21/2024 COMP. METAB OLIC PANEL (14) glucose 84 mg/dL 70-99 normal Not Available [facility] ([facility]) [address] [place], [address], 07/27/2024 18:36:46 07/20/19 25 07/21/2024 COMP. METAB OLIC PANEL (14) BUN 10 mg/dL 6-24 normal Not Available [facility] ([facility]) [address] [facility], [place], [address], 07/27/2024 18:36:46 07/20/19 25 07/21/2024 COMP. METAB OLIC PANEL (14) creatinine 0.76 mg/dL 0.57-1 .00 normal Not Available [facility] ([facility]) [address] [place], [address], 07/27/2024 18:36:46 07/20/19 25 07/21/2024 COMP. METAB OLIC PANEL (14) eGFR 101 mL/mi n/1.7 3 >59 normal Not Available [facility] ([facility]) [address] [place], [address], 07/27/2024 18:36:46 07/20/19 25 07/21/2024 COMP. METAB OLIC PANEL (14) BUN/creatini ne ratio 13 9-23 normal Not Available [facility] ([facility]) [address] [place], [address], 07/27/2024 18:36:46 07/20/19 25 07/21/2024 COMP. METAB OLIC PANEL (14) sodium 140 mmol/ L 134-14 4 normal Not Available [facility] ([facility]) [address] [facility] [place], [address], 07/27/2024 18:36:46 07/20/19 25 07/21/2024 COMP. METAB OLIC PANEL (14) potassium 4.5 mmol/ L 3.5-5. 2 normal Not Available [facility] ([facility]) [address] [facility] [place], [address], 07/27/2024 18:36:46 07/20/19 25 07/21/2024 COMP. METAB OLIC PANEL (14) chloride 105 mmol/ L 96-106 normal Not Available [facility] ([facility]) [address] [facility] [place], [address], 07/27/2024 18:36:46 07/20/19 25 07/21/2024 COMP. METAB OLIC PANEL (14) carbon dioxide, total 22 mmol/ L 20-29 normal Not Available [facility] ([facility]) [address] [place], [address], 07/27/2024 18:36:46 07/20/19 25 07/21/2024 COMP. METAB OLIC PANEL (14) calcium 9.4 mg/dL 8.7-10 .2 normal Not Available [facility] ([facility]) [address] [facility] [place], [address], 07/27/2024 18:36:46 07/20/19 25 07/21/2024 COMP. METAB OLIC PANEL (14) protein, total 6.9 g/dL 6.0-8. 5 normal Not Available [facility] ([facility]) [address] [place], [address], 07/27/2024 18:36:46 07/20/19 25 07/21/2024 COMP. METAB OLIC PANEL (14) albumin 4.3 g/dL 3.9-4. 9 normal Not Available [facility] ([facility]) [address] [facility] [place], [address], 07/27/2024 18:36:46 07/20/19 25 07/21/2024 COMP. METAB OLIC PANEL (14) globulin, total 2.6 g/dL 1.5-4. 5 Not Available [facility] ([facility]) [address] [place], [address], 07/27/2024 18:36:46 07/20/19 25 07/21/2024 COMP. METAB OLIC PANEL (14) bilirubin, total 0.7 mg/dL 0.0-1. 2 normal Not Available [facility] ([facility]) [address] [place], [address], 07/27/2024 18:36:46 07/20/19 25 07/21/2024 COMP. METAB OLIC PANEL (14) alkaline phosphatase 78 IU/L 44-121 normal Not Available [facility] ([facility]) [address] [place], [address], 07/27/2024 18:36:46 07/20/19 25 07/21/2024 COMP. METAB OLIC PANEL (14) AST (SGOT) 19 IU/L 0-40 normal Not Available [facility] ([facility]) [address] [place], [address], 07/27/2024 18:36:46 07/20/19 25 07/21/2024 COMP. METAB OLIC PANEL (14) ALT (SGPT) 16 IU/L 0-32 normal Not Available [facility] ([facility]) [address] [place], [address], 07/27/2024 18:36:46 07/20/19 25 07/21/2024 LIPID PANEL cholesterol, total 153 mg/dL 100-19 9 normal Not Available [facility] ([facility]) [address] [place], [address], 07/27/2024 18:36:48 07/20/19 25 07/21/2024 LIPID PANEL triglyceride s 116 mg/dL 0-149 normal Not Available [facility] ([facility]) [address] [place], [address], 07/27/2024 18:36:48 07/20/19 25 07/21/2024 LIPID PANEL HDL cholesterol 45 mg/dL >39 normal Not Available [facility] ([facility]) [address] [place], [address], 07/27/2024 18:36:48 07/20/19 25 07/21/2024 LIPID PANEL VLDL cholesterol leah 21 mg/dL 5-40 Not Available [facility] ([facility]) [address] [place], [address], 07/27/2024 18:36:48 07/20/19 25 07/21/2024 LIPID PANEL LDL chol calc ([facility]) 87 mg/dL 0-99 Not Available [facility] ([facility]) [address] [place], [address], 07/27/2024 18:36:48 07/20/19 25 07/21/2024 LIPID PANEL 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 5 Refer ence inter vals for alpha and gamma -toco phero l deter mined from [facility] and Nutri tion Exami natio n Surve y, 2004- 2005. Indiv idual s with alpha -toco phero l level s less than 5.0 mg/L are consi dered vitam in E defic ient. Not Available [facility] ([facility]) [address] [facility], [place], [address], 07/27/2024 18:36:48 07/20/19 25 07/21/2024 HEMOG LOBIN A1C hemoglobin A1C 5.0 % 4.8-5. 6 normal Predi abete s: 5.7 - 6.4 Diabe antonette: >6.4 Glyce marisela contr ol for adult s with diabe antonette: <7.0 Not Available [facility] ([facility]) [address] [facility], [place], [address], 07/27/2024 18:36:49 07/20/19 25 07/21/2024 FOLAT E (FOLI C ACID) , SERUM folate (folic acid), serum 19.7 NG/mL >3.0 normal A serum folat e joshua ntrat ion of less than 3.1 ng/mL is consi dered to repre sent clini leah defic iency . Not Available [facility] ([facility]) [address] [facility], [place], [address], 07/27/2024 18:36:51 07/20/19 25 07/26/2024 VITAM IN A, SERUM vitamin A 35.1 ug/dL 20.1-6 2.0 Refer ence inter vals for vitam in A deter mined from [facility] inter nal studi es. Indiv idual s with vitam in A less than 20 ug/dL are consi dered vitam in A defic ient and those with serum joshua ntrat ions less than 10 ug/dL are consi dered sever marsha defic ient. This test was devel oped and its perfo rmanc e alicia cteri stics deter mined by [facility]. It has not been clear ed or appro dilshad by the Food and Drug Admin istra tion. Not Available [facility] ([facility]) [address] [place], [address], 07/27/2024 18:36:51 07/20/19 25 07/21/2024 VITAM IN D, 25-HY DROXY vitamin D, 25-hydroxy 28.6 NG/mL 30.0-1 00.0 below low normal Vitam in D defic iency has been defin ed by the Insti tute of Medic ine and an Endoc rine Socie ty pract ice guide line as a level of serum 25-OH vitam in D less than 20 ng/mL (1,2) . The Endoc rine Socie ty went on to furth er defin e vitam in D insuf ficie ncy as a level betwe en 21 and 29 ng/mL (2). 1. IOM (Inst itute of Medic ine). 2010. Dieta ry refer ence lane es for calci um and D. Emma moore [place]: [facility] [employer] . 2. Yang greene [place], María chiang [place], Cyrus off-F errar i HO, et al. Evalu ation , treat ment, and preve ntion of vitam in D defic iency : an Endoc rine Socie ty clini leah pract ice guide line. JCEM. 2010; 96(7) :1911 -30. Not Available [facility] ([facility]) [address] [place], [address], 07/27/2024 18:36:52 07/20/19 25 07/27/2024 VITAM IN B1 (THIA MINE) , BLOOD vit. B1, whole blood 186.3 nmol/ L 66.5-2 00.0 Not Available [facility] ([facility]) [address] [place], [address], 07/27/2024 18:36:53 07/20/19 25 07/25/2024 METHY LMALO MARGARET ACID, SERUM methylmaloni c acid, serum 157 nmol/ L 0-378 Not Available [facility] ([facility]) [address] [place], [address], 07/27/2024 18:36:54 07/20/19 25 07/26/2024 COPPE R, SERUM OR PLASM A copper, serum or plasma 136 ug/dL 80-158 Detec tion Limit = 5 Not Available [facility] ([facility]) [address] [place], [address], 07/27/2024 18:36:55 07/20/19 25 07/26/2024 ZINC, PLASM A OR SERUM zinc, plasma or serum 55 ug/dL 44-115 normal Detec tion Limit = 5 Not Available [facility] ([facility]) [address] [facility], [place], [address], 07/27/2024 18:36:56 07/20/19 25 07/21/2024 PREAL BUMIN prealbumin 16 mg/dL 12-34 Not Available [facility] ([facility]) [address] [facility], [place], [address], 07/27/2024 18:36:57 07/20/19 25 07/27/2024 SELEN IUM, BLOOD selenium, blood 135 ug/L 100-34 0 Detec tion Limit = 10 Not Available [facility] ([facility]) [address] [facility], [place], [address], 07/27/2024 18:36:58 01/31/20 24 01/05/2024 CPAP compl iance * No observ ation record ed. [email or web address] Not Available 01/30 17:05:06 Result Notes None recorded. Problems Name Problem SNOMED Code Status Onset Date Resolution Date Notes Provider Name and Address Organization Details Recorded Time Erasmo inson-Whit e pattern 15541208 Active 2022 CORAZON Conn - [place] & [place] 3 15:19:38 Obesity 050558304 Active 2022 COARZON Conn - [place] & [place] 3 15:19:45 Essential hypertensi on 41608247 Active 2022 Peral Francy null, [place] - [facility] - [place] & [place] 3 15:19:54 Asthma 688563317 Active 2022 Pearl Francy null, [place] - [facility] - [place] & [place] 3 15:19:59 Obstructiv e sleep apnea syndrome 63651353 Active 2022 Nomi Mitchell MD [address] [facility] [facility], [place], [address] , [place] - [facility] - [place] & [place] 3 15:34:38 Severe obesity 2523096698312 4 Active 2022 Nomi Mitchell MD [address] [facility] [facility], [place], [place], [address] [place] [address] , [place] - [facility] - [place] & [place] 3 15:40:49 Disorder of function of stomach 698543370 Active 2023 CINTHIA YORK NP [address] [facility] [facility], [place], [place], [address] [place] [address] , [place] - [facility] - [place] & [place] 4 08:23:47 Pre-surger y testing Active 2023 CINTHIA YORK NP [address] [facility] [facility], [place], [place], [address] [place] [address] , [place] - [facility] - [place] & [place] 4 09:00:21 Gastroesop hageal reflux disease 075334489 Active 2023 CINTHIA YORK NP [address] [facility] [facility], [place], [place], [address] [place] [address] , [place] - [facility] - [place] & [place] 4 10:17:59 Intentiona l weight loss 204951319 Active 2023 HERVE Cedeno [address] [facility] [facility], [place], [place], [address] [place] [address] , [place] - [facility] - [place] & [place] 4 10:20:52 Morbid obesity 299451566 Active 2023 Jose Cisneros, DNP, LADIES SUIT OPERATOR, TOWER SWITCH OPERATOR-C [address], [place], [address] , [place] [facility] - [place] & [place] 15:06:45 Problem Notes None recorded. Procedures Surgical History Date Name Laterality Status Provider Name and Address Organization Details Recorded Time 02/03/20 24 destruction of lesion of heart completed Jhoana Mendoza [place] - [facility] & [place] 04/18/2024 15:09:17 01/13/20 24 bariatric operative procedure completed Parvin Sofia [place] - [facility] & [place] 01/31/2024 16:28:29 12/15/19 23 Date of Last Pap Smear completed Maritza Ubaldo [place] - [facility] & [place] 08/23/2023 15:13:07 06/14/19 05 section completed LEELEE YORK NP [address], [place], [address], [place] - [facility] & [place] 07/29/2023 10:20:36 06/14/19 05 Other [facility] [place] [facility] & [place] 08/23/2023 15:13:21 06/14/18 86 procedure on wrist completed LEELEE YORK NP [address], [place], [address], [place] - [facility] & [place] 07/29/2023 10:20:52 06/14/18 86 Other completed Maritza Ubaldo [place] - [facility] & [place] 08/23/2023 15:13:21 extraction of wisdom tooth completed Olivia Byers [place]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 advised.Heartburn/gas troesophageal reflux: deniesPt Denies : abdominal pain, prandial issues Nausea, Vomiting, bowel or bladder issuesTotal Weight loss Since last office visit has been 58.4 lbsPt is happy with their quality of life after Weight loss Surgery. 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 She recently saw Dr. Ordaz at [facility] and followed-up on May 17, 2024. Patient doing well. Reports q.i.d. small meal intake. Reports 120g/dy protein intake and good hydration.Patient is drinking 64 ounces of water a day.Daily Calories <2000Taking routine vitamins as advised.Heartburn/gas troesophageal reflux: deniesPt Denies : abdominal pain, prandial issues Nausea, Vomiting, bowel or bladder issuesTotal Weight loss Since last office visit has been 19.4 lbsPt is happy with their quality of life after Weight loss Surgery. Today's InBody reveals a skeletal muscle mass = 88.2 lb,body fat mass = 175.6 lb,BMI = 49.6Percent body fat = 52.2Basal Metabolic Rate = 1943 kilo calories Jose Cisneros, DNP, LADIES SUIT OPERATOR, TOWER SWITCH OPERATOR-C [address] [facility], [place], [address], [facility] [facility] [place] & [place] 07/20/2024 15:40:48 OBGyn Episode No OBEpisode recorded.
--- NOTE | 2024-10-12 15:03 | ED_ITS ---
Discharge Plan Disposition Patient Disposition: Home, Self-Care Condition: Good Prescriptions Prescriptions: No Action ferrous sulfate [FeroSul] 325 mg (65 mg iron) tablet 325 mg PO DAILY lisinopril 10 mg tablet 10 mg PO DAILY Zyrtec 10 mg capsule 10 mg PO DAILYP PRN (Reason: Allergy Symptoms) omeprazole 40 MG capsule,delayed release(DR/EC) 40 mg PO DAILY metoprolol tartrate 100 mg tablet 100 mg PO BID chlorthalidone 25 mg tablet 25 mg PO DAILY ergocalciferol (vitamin D2) 1,250 mcg (50,000 unit) capsule 50,000 unit PO WEEKLY cholecalciferol (vitamin D3) 125 mcg (5,000 unit) capsule 5,000 unit PO DAILY multivitamin Tablet 1 tab PO DAILY calcium citrate 500 mg Tablet, Effervescent 500 mg PO BID vitamin B complex [Vitamin B-50 Complex] Tablet 1 tab PO DAILY vitamin A 10,000 unit Tablet 10,000 unit PO DAILY Referrals Follow up/Referrals: Jenae Whalen APRN [Primary Care Provider] - See instructions Brian Ding DO [Staff Physician] - See instructions Activity Restrictions/Add. Instructions Additional Instructions/Restrictions: Please wear your wrist splint. I have referred you to orthopedic surgery. Please continue taking Tylenol alternating with Motrin for symptoms. Clinical Impressions Clinical Impression: Left wrist pain Stand Alone Forms Stand Alone Forms: Work/School Release Instructions Patient Instructions: DI for Carpal Tunnel Syndrome, DI for Wrist Pain Print Language Print Language: British Discharge ED Provider: Víctor Malone Adult [facility] General Chief complaint: Extremity Injury, Upper Stated complaint: pain in L wrist-no accident Time Seen by Provider: 10/12/24 15:01 Mode of Arrival: Ambulatory Source of Information: Patient Description of Symptoms (Recalled from ER Triage Doc. by RN): Patient reports left wrist pain after clean at home. Patient reports twisted left wrist wrong. Related Data Home Medications ?Medication ?Instructions ?Recorded ?Confirmed omeprazole 40 mg capsule,delayed 40 mg PO DAILY 06/28/20 02/01/24 release ferrous sulfate 325 mg (65 mg 325 mg PO DAILY 12/14/22 02/01/24 iron) tablet (FeroSul) lisinopril 10 mg tablet 10 mg PO DAILY 12/14/22 02/01/24 cetirizine 10 mg capsule (Zyrtec) 10 mg PO DAILYP PRN Allergy 02/04/23 02/01/24 Symptoms calcium citrate 500 mg (2,376 mg) 500 mg PO BID 02/01/24 02/01/24 effervescent tablet chlorthalidone 25 mg tablet 25 mg PO DAILY 02/01/24 02/01/24 cholecalciferol (vitamin D3) 125 5,000 unit PO DAILY 02/01/24 02/01/24 mcg (5,000 unit) capsule ergocalciferol (vitamin D2) 1,250 50,000 unit PO WEEKLY 02/01/24 02/01/24 mcg (50,000 unit) capsule metoprolol tartrate 100 mg tablet 100 mg PO BID 02/01/24 02/01/24 multivitamin 1 tab PO DAILY 02/01/24 02/01/24 vitamin A 10,000 unit tablet 10,000 unit PO DAILY 02/01/24 02/01/24 vitamin B complex 1 tab PO DAILY 02/01/24 02/01/24 Allergies Allergy/AdvReac Type Severity Reaction Status Date / Time No Known Allergies Allergy Verified 03/30/23 10:05 [facility] Disclaimer: The information contained in this section may have been updated after the patient was seen, as this information can be updated by other users. Medical History (Updated 10/12/24 @ 17:22 by HERVE Butterfield) Shortness of Breath Chest pain Palpitations Hypertension History of Hfwuo-Ihjfczvqm-Yfrky (WPW) syndrome Atrial fibrillation with RVR Severe obesity (BMI >= 40) Abnormal bleeding in menstrual cycle GERD (gastroesophageal reflux disease) Surgical History History of surgery on left wrist Previous section Family History Mother Diabetes Hypertension Kidney disease Father Diabetes Hypertension Social History (Updated 02/01/24 @ 12:29 by Kimberly Vincent RN) Smoking Status: Never smoker alcohol intake: current alcohol intake frequency: holidays/special occasions only substance use type: denies use current occupational status: employed Travel in the last 8 weeks?: None household members: family housing: house Have you lived/traveled outside US in past 30 days?: No Contact w/someone who lives/traveled outside US past 30 days?: No Exposure to someone with infectious disease in past 14 days?: No Do you have a fever (greater than 100.4 F or 38 C)?: No Have you tested positive for COVID-19?: No Exposed to someone with COVID-19 in past 14 days?: No Do you have a sore throat?: No Do you have a cough?: No Do you have any weakness?: No Do you have any diarrhea?: No Are you experiencing any unusual bleeding?: No Do you have any muscle aches/pain?: No Do you have any abdominal pain?: No Are you experiencing loss of taste or smell?: No Other Medical History Have you received the Flu Vaccine for this season: No Have you received the Pneumonia Vaccine: No ROS Obtained: Yes All systems reviewed & no additional complaints except as documented Physical Exam General General appearance: alert and in no apparent distress Head Head exam: atraumatic and normocephalic Eye Eye exam: Present PERRL and EOMI ENT ENT exam: Present normal oropharynx Neck Neck exam: Present full ROM and trachea midline Chest Chest inspection: Present symmetric chest wall rise Respiratory Respiratory exam: Present normal lung sounds bilaterally; Absent stridor Cardiovascular Cardiovascular exam: Present regular rate and normal rhythm Abdominal Exam Abdominal exam: Present soft; Absent distention or tenderness Extremities Exam Extremities exam: Present full ROM and tenderness (Left wrist) Neurological Exam Neurological exam: Present alert and oriented X3 Psychiatric Psychiatric exam: Present normal mood Skin Skin exam: Present warm and dry Medical Decision Making Medical Records Screening: Per USPSTF and CDC recommendations, given the prevalence of disease in our region, it is our hospital?s policy to screen for HIV and viral Hepatitis for all patients aged 18 and over and those with ongoing risk factors. Jay Inquiry Pt receiving controlled substance: No Vital Signs: 10/12/24 14:37 Temperature 97.6 F Temperature Source Tympanic Pulse Rate [Right] 70 Respiratory Rate 16 Blood Pressure [Right Arm] 181/46 H Blood Pressure Mean [Right Arm] 91 02 Sat by Pulse Oximetry 98 Orders (Tests/Meds): ORDERS Category Date Time Status XR wrist LT min 3V Stat Exams 10/12/24 15:23 Completed Medical Decision Narrative: Patient is a 39-year-old female with a history of hypertension. She presents today due to concern for left wrist injury. She reports she was moving some heavy objects and felt a twinge in her wrist extending into her hand. She did not feel or hear a pop. She denies any numbness weakness or tingling. The pain is directly over the volar aspect of her wrist. She has not had this pain before. She denies any falls or landing on this. In summary, this 39-year-old female presents to the emergency department today with wrist pain. On initial evaluation patient is afebrile, hemodynamically stable and in no acute distress. On exam is warm and well-perfused. She is neurologically intact on her left upper extremity distal to the injury there is no obvious deformity bruising. Brisk capillary refill. Motor intact.. Differ ential diagnosis includes but is not limited to carpal tunnel, fracture, dislocation, sprain, strain. Based on these concerns, I ordered left wrist x- ray. I dependently interpreted the wrist XR to demonstrate no fracture dislocation discomfort by the right address final read. I have a high suspicion for median nerve palsy carpal tunnel. Given wrist splint and follow-up with orthopedic surgery. Of note, social determinants of health include poor health literacy. At this time it was felt that the patient was safe to be discharged home. The patient was in agreement with this plan. The patient was given strict return precautions prior to being discharged from the emergency department. Critical Care Critical Care Time Critical Care Time: No
--- NOTE | 2024-10-12 15:23 | XR_ITS ---
FINAL REPORT CLINICAL HISTORY: l wrist ttp COMPARISON: 10/01/2020 FINDINGS: LEFT WRIST Three views demonstrate no acute fracture or dislocation. The visualized joint spaces are normally aligned. The soft tissues are unremarkable. IMPRESSION: No acute bony abnormality. Reviewed, Interpreted and Dictated by Isiah Stinson MD Transcribed by Rabia Murphy Authenticated and [facility]
[2024-10-12 17:41] VITALS: BP 160/80; PULSE 75; RESP 18; TEMP 36.4; O2SAT 98
== END 2024-10-12 17:44 | disposition home or self-care (01) ==
PROVIDERS: Emergency Provider Emergency Medicine; PCP Nurse Practitioner
DX: M25.532 Pain in left wrist (principal)
CPT/HCPCS: 73110; 99283

== ENCOUNTER 2024-10-30 16:18 | Outpatient (CLI) | payer OTHER, SELFPAY ==
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
--- OUTSIDE RECORDS SUMMARY | 2024-10-30 16:21 | XMS_ITS | Data Portability ---
Author Organization [facility] & [facility] ADMIN Address [address] [place] [id number] Care Team Providers Care Chocolate Dipper Name Role Phone [facility] Primary Care Provider Assessment No assessment recorded. Plan of Treatment Reminders Order Date Submit Date Provider Last Modified By Organization Details Last Modified Time Details Appointments OV EST 20 2024 03:20P Jesse Cisneros, DNP, MINI LAB OPERATOR, RETAIL ACCOUNT REPRESENTATIVE-C Not available Not available Not available Lab copper, serum or plasma 2024 025 [facility], [address], [address], [place], [address], 10/25/2024 14:56:11 selenium , quantita tive, blood 2024 025 [facility], [address], [address], [place], [address], 10/25/2024 14:56:14 zinc, serum or plasma 2024 025 [facility], [address], [address], [place], [address], 10/25/2024 14:56:14 iron + TIBC + ferritin , serum 2024 025 [facility], [address], [address], [place], [address], 10/25/2024 14:56:14 folate, serum 2024 025 [facility], [address], [address], [place], [address], 10/25/2024 14:55:56 vitamin E, serum 2024 025 [facility], [address], [address], [place], [address], 10/25/2024 14:56:14 vitamin A (retinol ), serum 2024 025 [facility], [address], [address], [place], [address], 10/25/2024 14:55:56 prealbum in, serum 2024 025 [facility], [address], [address], [place], [address], 10/25/2024 14:56:13 thiamine , QN, blood 2024 025 [facility], [address], [address], [place], [address], 10/25/2024 14:55:55 methylma lonate, QN, serum or plasma 2024 025 [facility], [address], [address], [place], [address], 10/25/2024 14:56:13 vitamin D, 25-hydro xy, total, serum 2024 025 [facility], [address], [address], [place], [address], 10/25/2024 14:56:13 CBC w/ auto diff 2024 025 [facility], [address], [address], [place], [address], 10/25/2024 14:56:12 CMP, serum or plasma 2024 025 [facility], [address], [address], [place], [address], 10/25/2024 14:56:14 HbA1c (hemoglo bin A1c), blood 2024 025 [facility], [address], [address], [place], [address], 10/25/2024 14:56:12 TSH + free T4, serum 2024 025 [facility], [address], [address], [place], [address], 10/25/2024 14:56:12 lipid panel, serum 2024 025 [facility], [address], [address], [place], [address], 10/25/2024 14:56:13 copper, serum or plasma 2024 025 [email or web address] [facility], [address], [address], [place], [address], 07/27/2024 10:34:05 selenium , quantita tive, blood 2024 025 [facility], [address], [address], [place], [address], 07/27/2024 10:34:05 zinc, serum or plasma 2024 025 [email or web address] [facility], [address], [address], [place], [address], 07/27/2024 10:34:05 iron + TIBC + ferritin , serum 2024 025 [email or web address] [facility], [address], [address], [place], [address], 07/27/2024 10:34:05 folate, serum 2024 025 [email or web address] [facility], [address], [address], [place], [address], 07/27/2024 10:34:05 vitamin E, serum 2024 025 [email or web address] [facility], [address], [address], [place], [address], 07/27/2024 10:34:05 vitamin A (retinol ), serum 2024 025 [email or web address] [facility], [address], [address], [place], [address], 07/27/2024 10:34:06 prealbum in, serum 2024 025 [email or web address] [facility], [address], [address], [place], [address], 07/27/2024 10:34:06 thiamine , QN, blood 2024 025 [email or web address] [facility], [address], [address], [place], [address], 07/27/2024 10:34:06 methylma lonate, QN, serum or plasma 2024 025 [email or web address] [facility], [address], [address], [place], [address], 07/27/2024 10:34:06 vitamin D, 25-hydro xy, total, serum 2024 025 [email or web address] [facility], [address], [address], [place], [address], 07/27/2024 10:34:07 CBC w/ auto diff 2024 025 [email or web address] [facility], [address], [address], [place], [address], 07/27/2024 10:34:06 CMP, serum or plasma 2024 025 [email or web address] [facility], [address], [address], [place], [address], 07/27/2024 10:34:06 HbA1c (hemoglo bin A1c), blood 2024 025 [email or web address] [facility], [address], [address], [place], [address], 07/27/2024 10:34:06 TSH + free T4, serum 2024 025 [email or web address] [facility], [address], [address], [place], [address], 07/27/2024 10:34:07 lipid panel, serum 2024 025 [email or web address] [facility], [address], [address], [place], [address], 07/27/2024 10:34:07 copper, serum or plasma 2023 024 [facility], [address], [address], [place], [address], 04/25/2024 14:37:36 selenium , quantita tive, blood 2023 024 [facility], [address], [address], [place], [address], 04/25/2024 14:37:40 zinc, serum or plasma 2023 024 [facility], [address], [address], [place], [address], 04/25/2024 14:37:37 iron + TIBC + ferritin , serum 2023 024 [facility], [address], [address], [place], [address], 04/25/2024 14:37:20 folate, serum 2023 024 [facility], [address], [address], [place], [address], 04/25/2024 14:37:30 vitamin E, serum 2023 024 [facility], [address], [address], [place], [address], 04/25/2024 14:37:27 vitamin A (retinol ), serum 2023 024 [facility], [address], [address], [place], [address], 04/25/2024 14:37:31 prealbum in, serum 2023 024 [facility], [address], [address], [place], [address], 04/25/2024 14:37:38 thiamine , QN, blood 2023 024 [facility], [address], [address], [place], [address], 04/25/2024 14:37:33 methylma lonate, QN, serum or plasma 2023 024 [facility], [address], [address], [place], [address], 04/25/2024 14:37:35 vitamin D, 25-hydro xy, total, serum 2023 024 [facility], [address], [address], [place], [address], 04/25/2024 14:37:32 CBC w/ auto diff 2023 024 [facility], [address], [address], [place], [address], 04/25/2024 14:37:23 CMP, serum or plasma 2023 024 [facility], [address], [address], [place], [address], 04/25/2024 14:37:24 HbA1c (hemoglo bin A1c), blood 2023 024 [facility], [address], [address], [place], [address], 04/25/2024 14:37:28 TSH + free T4, serum 2023 024 [facility], [address], [address], [place], [address], 04/25/2024 14:37:22 lipid panel, serum 2023 024 [facility], [address], [address], [place], [address], 04/25/2024 14:37:26 folate, serum 2023 024 [facility], [address], [address], [place], [address], 02/22/2024 20:36:35 prealbum in, serum 2023 024 [facility], [address], [address], [place], [address], 02/22/2024 20:36:37 thiamine , QN, blood 2023 024 [facility], [address], [address], [place], [address], 02/22/2024 20:36:37 methylma lonate, QN, serum or plasma 2023 024 [facility], [address], [address], [place], [address], 02/22/2024 20:36:37 CBC w/ auto diff 2023 024 [facility], [address], [address], [place], [address], 02/22/2024 20:36:34 CMP, serum or plasma 2023 024 [facility], [address], [address], [place], [address], 02/22/2024 20:36:34 iron + TIBC + ferritin , serum 2023 024 [facility], [address], [address], [place], [address], 02/22/2024 20:36:33 vitamin D, 25-hydro xy, total, serum 2023 024 [facility], [address], [address], [place], [address], 02/22/2024 20:36:36 vitamin E, serum 2023 024 [facility], [address], [address], [place], [address], 02/22/2024 20:36:35 vitamin A (retinol ), serum 2023 024 [facility], [address], [address], [place], [address], 02/22/2024 20:36:36 TSH + free T4, serum 2023 024 [facility], [address], [address], [place], [address], 02/22/2024 20:36:33 Referral None recorded . Procedures [...] to decrease nausea4. Physical activity as tolerated [email or web address] Not available 02/17/2024 16:04:09 Patient InstructionsNo instructions recorded. Reason for Referral None Reported. Results Created Date Observation Date Name Description Value Unit Range Abnormal Flag Note LastModifiedBy Organization Detail LastModifiedTime 02/17/2002/18/2024 FE+TI BC+FE R iron bind.cap.(TI BC) 210 ug/dL 250-45 0 below low normal Not Available [facility] ([facility]) [address] [facility], [place], [address], 02/22/2024 20:36:33 02/17/20 24 02/18/2024 FE+TI BC+FE R UIBC 179 ug/dL 131-42 5 normal Not Available [facility] ([facility]) [address] [facility], [place], [address], 02/22/2024 20:36:33 02/17/20 24 02/18/2024 FE+TI BC+FE R iron 31 ug/dL 27-159 normal Not Available [facility] ([facility]) [address] [place], [address], 02/22/2024 20:36:33 02/17/20 24 02/18/2024 FE+TI BC+FE R iron saturation 15 % 15-55 normal Not Available [facility] ([facility]) [address] [place], [address], 02/22/2024 20:36:33 02/17/20 24 02/18/2024 FE+TI BC+FE R ferritin 102 NG/mL 15-150 normal Not Available [facility] ([facility]) [address] [place], [address], 02/22/2024 20:36:33 02/17/20 24 02/18/2024 TSH+F REE T4 TSH 2.970 uIU/m L 0.450- 4.500 normal Not Available [facility] ([facility]) [address] [place], [address], 02/22/2024 20:36:33 02/17/20 24 02/18/2024 TSH+F REE T4 T4,free(dire ct) 1.28 NG/dL 0.82-1 .77 normal Not Available [facility] ([facility]) [address] [place], [address], 02/22/2024 20:36:33 02/17/20 24 02/18/2024 CBC WITH DIFFE RENTI AL/PL ATELE T WBC 5.0 x10e3 /uL 3.4-10 .8 normal Not Available [facility] ([facility]) [address] [place], [address], 02/22/2024 20:36:34 02/17/20 24 02/18/2024 CBC WITH DIFFE RENTI AL/PL ATELE T RBC 4.06 x10e6 /uL 3.77-5 .28 normal Not Available [facility] ([facility]) [address] [place], [address], 02/22/2024 20:36:34 02/17/20 24 02/18/2024 CBC WITH DIFFE RENTI AL/PL ATELE T hemoglobin 11.4 g/dL 11.1-1 5.9 normal Not Available [facility] ([facility]) [address] [facility], [place], [address], 02/22/2024 20:36:34 02/17/20 24 02/18/2024 CBC WITH DIFFE RENTI AL/PL ATELE T hematocrit 37.0 % 34.0-4 6.6 normal Not Available [facility] ([facility]) [address] [facility], [place], [address], 02/22/2024 20:36:34 02/17/20 24 02/18/2024 CBC WITH DIFFE RENTI AL/PL ATELE T MCV 91 fL 79-97 normal Not Available [facility] ([facility]) [address] [facility], [place], [address], 02/22/2024 20:36:34 02/17/20 24 02/18/2024 CBC WITH DIFFE RENTI AL/PL ATELE T MCH 28.1 pg 26.6-3 3.0 normal Not Available [facility] ([facility]) [address] [place], [address], 02/22/2024 20:36:34 02/17/20 24 02/18/2024 CBC WITH DIFFE RENTI AL/PL ATELE T MCHC 30.8 g/dL 31.5-3 5.7 below low normal Not Available [facility] ([facility]) [address] [place], [address], 02/22/2024 20:36:34 02/17/20 24 02/18/2024 CBC WITH DIFFE RENTI AL/PL ATELE T RDW 14.4 % 11.7-1 5.4 Not Available [facility] ([facility]) [address] [place], [address], 02/22/2024 20:36:34 02/17/20 24 02/18/2024 CBC WITH DIFFE RENTI AL/PL ATELE T platelets 188 x10e3 /uL 150-45 0 normal Not Available [facility] ([facility]) [address] [facility], [place], [address], 02/22/2024 20:36:34 02/17/20 24 02/18/2024 CBC WITH DIFFE RENTI AL/PL ATELE T neutrophils 49 % not estab. normal Not Available [facility] ([facility]) [address] [facility], [place], [address], 02/22/2024 20:36:34 02/17/20 24 02/18/2024 CBC WITH DIFFE RENTI AL/PL ATELE T lymphs 40 % not estab. normal Not Available [facility] ([facility]) [address] [facility], [place], [address], 02/22/2024 20:36:34 02/17/20 24 02/18/2024 CBC WITH DIFFE RENTI AL/PL ATELE T monocytes 9 % not estab. normal Not Available [facility] ([facility]) [address] [facility], [place], [address], 02/22/2024 20:36:34 02/17/20 24 02/18/2024 CBC WITH DIFFE RENTI AL/PL ATELE T eos 2 % not estab. normal Not Available [facility] ([facility]) [address] [facility], [place], [address], 02/22/2024 20:36:34 02/17/20 24 02/18/2024 CBC WITH DIFFE RENTI AL/PL ATELE T basos 0 % not estab. normal Not Available [facility] ([facility]) [address] [facility], [place], [address], 02/22/2024 20:36:34 02/17/20 24 02/18/2024 CBC WITH DIFFE RENTI AL/PL ATELE T immature cells RETAIL ACCOUNT REPRESENTATIVE Not Available [facility] ([facility]) [address] [facility], [place], [address], 02/22/2024 20:36:34 02/17/20 24 02/18/2024 CBC WITH DIFFE RENTI AL/PL ATELE T neutrophils (absolute) 2.4 x10e3 /uL 1.4-7. 0 normal Not Available [facility] ([facility]) [address] [facility], [place], [address], 02/22/2024 20:36:34 02/17/20 24 02/18/2024 CBC WITH DIFFE RENTI AL/PL ATELE T lymphs (absolute) 2.0 x10e3 /uL 0.7-3. 1 normal Not Available [facility] ([facility]) [address] [place], [address], 02/22/2024 20:36:34 02/17/20 24 02/18/2024 CBC WITH DIFFE RENTI AL/PL ATELE T monocytes(ab solute) 0.4 x10e3 /uL 0.1-0. 9 normal Not Available [facility] ([facility]) [address] [place], [address], 02/22/2024 20:36:34 02/17/20 24 02/18/2024 CBC WITH DIFFE RENTI AL/PL ATELE T eos (absolute) 0.1 x10e3 /uL 0.0-0. 4 normal Not Available [facility] ([facility]) [address] [place], [address], 02/22/2024 20:36:34 02/17/20 24 02/18/2024 CBC WITH DIFFE RENTI AL/PL ATELE T baso (absolute) 0.0 x10e3 /uL 0.0-0. 2 normal Not Available [facility] ([facility]) [address] [place], [address], 02/22/2024 20:36:34 02/17/20 24 02/18/2024 CBC WITH DIFFE RENTI AL/PL ATELE T immature granulocytes 0 % not estab. Not Available [facility] ([facility]) [address], [place], [address], 02/22/2024 20:36:34 02/17/20 24 02/18/2024 CBC WITH DIFFE RENTI AL/PL ATELE T immature grans (abs) 0.0 x10e3 /uL 0.0-0. 1 Not Available [facility] ([facility]) [address] [facility], [place], [address], 02/22/2024 20:36:34 02/17/20 24 02/18/2024 CBC WITH DIFFE RENTI AL/PL ATELE T NRBC RETAIL ACCOUNT REPRESENTATIVE Not Available [facility] ([facility]) [address] [facility], [place], [address], 02/22/2024 20:36:34 02/17/20 24 02/18/2024 CBC WITH DIFFE RENTI AL/PL ATELE T hematology comments: RETAIL ACCOUNT REPRESENTATIVE Not Available [facility] ([facility]) [address] [facility], [place], [address], 02/22/2024 20:36:34 02/17/20 24 02/18/2024 COMP. METAB OLIC PANEL (14) glucose 95 mg/dL 70-99 normal Not Available [facility] ([facility]) [address] [facility], [place], [address], 02/22/2024 20:36:34 02/17/20 24 02/18/2024 COMP. METAB OLIC PANEL (14) BUN 8 mg/dL 6-24 normal Not Available [facility] ([facility]) [address] [facility], [place], [address], 02/22/2024 20:36:34 02/17/20 24 02/18/2024 COMP. METAB OLIC PANEL (14) creatinine 0.75 mg/dL 0.57-1 .00 normal Not Available [facility] ([facility]) [address] [facility], [place], [address], 02/22/2024 20:36:34 02/17/20 24 02/18/2024 COMP. METAB OLIC PANEL (14) eGFR 103 mL/mi n/1.7 3 >59 normal Not Available [facility] ([facility]) [address] [facility], [place], [address], 02/22/2024 20:36:34 02/17/20 24 02/18/2024 COMP. METAB OLIC PANEL (14) BUN/creatini ne ratio 11 9-23 normal Not Available [facility] ([facility]) [address] [facility], [place], [address], 02/22/2024 20:36:34 02/17/20 24 02/18/2024 COMP. METAB OLIC PANEL (14) sodium 140 mmol/ L 134-14 4 normal Not Available [facility] ([facility]) [address] [facility], [place], [address], 02/22/2024 20:36:34 02/17/20 24 02/18/2024 COMP. METAB OLIC PANEL (14) potassium 3.7 mmol/ L 3.5-5. 2 normal Not Available [facility] ([facility]) [address] [facility], [place], [address], 02/22/2024 20:36:34 02/17/20 24 02/18/2024 COMP. METAB OLIC PANEL (14) chloride 107 mmol/ L 96-106 above high normal Not Available [facility] ([facility]) [address] [facility], [place], [address], 02/22/2024 20:36:34 02/17/20 24 02/18/2024 COMP. METAB OLIC PANEL (14) carbon dioxide, total 21 mmol/ L 20-29 normal Not Available [facility] ([facility]) [address] [facility], [place], [address], 02/22/2024 20:36:34 02/17/20 24 02/18/2024 COMP. METAB OLIC PANEL (14) calcium 8.3 mg/dL 8.7-10 .2 below low normal Not Available [facility] ([facility]) [address] [place], [address], 02/22/2024 20:36:34 02/17/20 24 02/18/2024 COMP. METAB OLIC PANEL (14) protein, total 6.1 g/dL 6.0-8. 5 normal Not Available [facility] ([facility]) [address] [place], [address], 02/22/2024 20:36:34 02/17/20 24 02/18/2024 COMP. METAB OLIC PANEL (14) albumin 3.7 g/dL 3.9-4. 9 below low normal Not Available [facility] ([facility]) [address] [place], [address], 02/22/2024 20:36:34 02/17/20 24 02/18/2024 COMP. METAB OLIC PANEL (14) globulin, total 2.4 g/dL 1.5-4. 5 Not Available [facility] ([facility]) [address] [place], [address], 02/22/2024 20:36:34 02/17/20 24 02/18/2024 COMP. METAB OLIC PANEL (14) bilirubin, total 0.4 mg/dL 0.0-1. 2 normal Not Available [facility] ([facility]) [address] [place], [address], 02/22/2024 20:36:34 02/17/20 24 02/18/2024 COMP. METAB OLIC PANEL (14) alkaline phosphatase 62 IU/L 44-121 normal Not Available [facility] ([facility]) [address] [place], [address], 02/22/2024 20:36:34 02/17/20 24 02/18/2024 COMP. METAB OLIC PANEL (14) AST (SGOT) 54 IU/L 0-40 above high normal Not Available [facility] ([facility]) [address] [place], [address], 02/22/2024 20:36:34 02/17/20 24 02/18/2024 COMP. METAB OLIC PANEL (14) ALT (SGPT) 59 IU/L 0-32 above high normal Not Available [facility] ([facility]) [address] [facility], [place], [address], 02/22/2024 20:36:34 02/17/20 24 02/22/2024 VITAM IN E vitamin E(alpha tocopherol) 8.9 mg/L 7.0-25 .1 Not Available [facility] ([facility]) [address] [facility], [place], [address], 02/22/2024 20:36:35 02/17/20 24 02/22/2024 VITAM IN [...] in E defic ient. Not Available [facility] ([facility]) [address] [facility], [place], [address], 02/22/2024 20:36:35 02/17/20 24 02/18/2024 FOLAT E (FOLI C ACID) , SERUM folate (folic acid), serum 12.9 NG/mL >3.0 normal A serum folat e joshua ntrat ion of less than 3.1 ng/mL is consi dered to repre sent clini leah defic iency . Not Available [facility] ([facility]) [address] [facility], [place], [address], 02/22/2024 20:36:35 02/17/20 24 02/22/2024 VITAM IN [...] Drug Admin istra tion. Not Available [facility] ([facility]) [address] [facility], [place], [address], 02/22/2024 20:36:36 02/17/20 24 02/18/2024 VITAM IN [...] Endoc rine Socie ty went on to [facility] er defin e vitam in D insuf ficie ncy as a level betwe en 21 and 29 ng/mL (2). 1. IOM (Inst itute of Medic ine). 2009. Dieta ry refer ence intak es for calci um and D. Emma moore [place]: [facility] Press . 2. Yang greene [place], María chiang [place], Cyrus off-F gatito i [place], et al. Evalu ation , treat ment, and preve ntion of vitam in D defic iency : an Endoc rine Socie ty clini leah pract ice guide line. JCEM. 2010; 96(7) :1911 -30. Not Available [facility] ([facility]) [address] [place], [address], 02/22/2024 20:36:36 02/17/20 24 02/21/2024 VITAM IN B1 (THIA MINE) , BLOOD vit. B1, whole blood 106.0 nmol/ L 66.5-2 00.0 Not Available [facility] ([facility]) [address] [place], [address], 02/22/2024 20:36:37 02/17/20 24 02/22/2024 METHY LMALO MARGARET ACID, SERUM methylmaloni c acid, serum 193 nmol/ L 0-378 Not Available [facility] ([facility]) [address] [place], [address], 02/22/2024 20:36:37 02/17/20 24 02/18/2024 PREAL BUMIN prealbumin 12 mg/dL 14-35 below low normal Not Available [facility] ([facility]) [address] [place], [address], 02/22/2024 20:36:37 04/18/20 24 04/19/2024 FE+TI BC+FE R iron bind.cap.(TI BC) 263 ug/dL 250-45 0 normal Not Available [facility] ([facility]) [address] [place], [address], 04/25/2024 14:37:20 04/18/20 24 04/19/2024 FE+TI BC+FE R UIBC 218 ug/dL 131-42 5 normal Not Available [facility] ([facility]) [address] [place], [address], 04/25/2024 14:37:20 04/18/20 24 04/19/2024 FE+TI BC+FE R iron 45 ug/dL 27-159 normal Not Available [facility] ([facility]) [address] [place], [address], 04/25/2024 14:37:20 04/18/20 24 04/19/2024 FE+TI BC+FE R iron saturation 17 % 15-55 normal Not Available [facility] ([facility]) [address] [place], [address], 04/25/2024 14:37:20 04/18/20 24 04/19/2024 FE+TI BC+FE R ferritin 95 NG/mL 15-150 normal Not Available [facility] ([facility]) [address] [place], [address], 04/25/2024 14:37:20 04/18/20 24 04/19/2024 TSH+F REE T4 TSH 1.950 uIU/m L 0.450- 4.500 normal Not Available [facility] ([facility]) [address] [place], [address], 04/25/2024 14:37:22 04/18/20 24 04/19/2024 TSH+F REE T4 T4,free(dire ct) 1.32 NG/dL 0.82-1 .77 normal Not Available [facility] ([facility]) [address] [place], [address], 04/25/2024 14:37:22 04/18/20 24 04/19/2024 CBC WITH DIFFE RENTI AL/PL ATELE T WBC 5.8 x10e3 /uL 3.4-10 .8 normal Not Available [facility] ([facility]) [address] [place], [address], 04/25/2024 14:37:23 04/18/20 24 04/19/2024 CBC WITH DIFFE RENTI AL/PL ATELE T RBC 4.18 x10e6 /uL 3.77-5 .28 normal Not Available [facility] ([facility]) [address] [place], [address], 04/25/2024 14:37:23 04/18/20 24 04/19/2024 CBC WITH DIFFE RENTI AL/PL ATELE T hemoglobin 11.9 g/dL 11.1-1 5.9 normal Not Available [facility] ([facility]) [address] [facility], [place], [address], 04/25/2024 14:37:23 04/18/20 24 04/19/2024 CBC WITH DIFFE RENTI AL/PL ATELE T hematocrit 37.5 % 34.0-4 6.6 normal Not Available [facility] ([facility]) [address] [place], [address], 04/25/2024 14:37:23 04/18/20 24 04/19/2024 CBC WITH DIFFE RENTI AL/PL ATELE T MCV 90 fL 79-97 normal Not Available [facility] ([facility]) [address] [place], [address], 04/25/2024 14:37:23 04/18/20 24 04/19/2024 CBC WITH DIFFE RENTI AL/PL ATELE T MCH 28.5 pg 26.6-3 3.0 normal Not Available [facility] ([facility]) [address] [place], [address], 04/25/2024 14:37:23 04/18/20 24 04/19/2024 CBC WITH DIFFE RENTI AL/PL ATELE T MCHC 31.7 g/dL 31.5-3 5.7 normal Not Available [facility] ([facility]) [address] [place], [address], 04/25/2024 14:37:23 04/18/20 24 04/19/2024 CBC WITH DIFFE RENTI AL/PL ATELE T RDW 14.4 % 11.7-1 5.4 Not Available [facility] ([facility]) [address] [place], [address], 04/25/2024 14:37:23 04/18/20 24 04/19/2024 CBC WITH DIFFE RENTI AL/PL ATELE T platelets 242 x10e3 /uL 150-45 0 normal Not Available [facility] ([facility]) [address] [facility], [place], [address], 04/25/2024 14:37:23 04/18/20 24 04/19/2024 CBC WITH DIFFE RENTI AL/PL ATELE T neutrophils 51 % not estab. normal Not Available [facility] ([facility]) [address] [facility] [facility], [place], [address], 04/25/2024 14:37:23 04/18/20 24 04/19/2024 CBC WITH DIFFE RENTI AL/PL ATELE T lymphs 39 % not estab. normal Not Available [facility] ([facility]) [address] [facility], [place], [address], 04/25/2024 14:37:23 04/18/20 24 04/19/2024 CBC WITH DIFFE RENTI AL/PL ATELE T monocytes 7 % not estab. normal Not Available [facility] ([facility]) [address] [facility], [place], [address], 04/25/2024 14:37:23 04/18/20 24 04/19/2024 CBC WITH DIFFE RENTI AL/PL ATELE T eos 2 % not estab. normal Not Available [facility] ([facility]) [address] [facility], [place], [address], 04/25/2024 14:37:23 04/18/20 24 04/19/2024 CBC WITH DIFFE RENTI AL/PL ATELE T basos 1 % not estab. normal Not Available [facility] ([facility]) [address] [facility], [place], [address], 04/25/2024 14:37:23 04/18/20 24 04/19/2024 CBC WITH DIFFE RENTI AL/PL ATELE T immature cells RETAIL ACCOUNT REPRESENTATIVE Not Available [facility] ([facility]) [address] [place], [address], 04/25/2024 14:37:23 04/18/20 24 04/19/2024 CBC WITH DIFFE RENTI AL/PL ATELE T neutrophils (absolute) 3.0 x10e3 /uL 1.4-7. 0 normal Not Available [facility] ([facility]) [address] [place], [address], 04/25/2024 14:37:23 04/18/20 24 04/19/2024 CBC WITH DIFFE RENTI AL/PL ATELE T lymphs (absolute) 2.3 x10e3 /uL 0.7-3. 1 normal Not Available [facility] ([facility]) [address] [place], [address], 04/25/2024 14:37:23 04/18/20 24 04/19/2024 CBC WITH DIFFE RENTI AL/PL ATELE T monocytes(ab solute) 0.4 x10e3 /uL 0.1-0. 9 normal Not Available [facility] ([facility]) [address] [place], [address], 04/25/2024 14:37:23 04/18/20 24 04/19/2024 CBC WITH DIFFE RENTI AL/PL ATELE T eos (absolute) 0.1 x10e3 /uL 0.0-0. 4 normal Not Available [facility] ([facility]) [address] [place], [address], 04/25/2024 14:37:23 04/18/20 24 04/19/2024 CBC WITH DIFFE RENTI AL/PL ATELE T baso (absolute) 0.0 x10e3 /uL 0.0-0. 2 normal Not Available [facility] ([facility]) [address] [place], [address], 04/25/2024 14:37:23 04/18/20 24 04/19/2024 CBC WITH DIFFE RENTI AL/PL ATELE T immature granulocytes 0 % not estab. Not Available [facility] ([facility]) [address] [facility], [place], [address], 04/25/2024 14:37:23 04/18/20 24 04/19/2024 CBC WITH DIFFE RENTI AL/PL ATELE T immature grans (abs) 0.0 x10e3 /uL 0.0-0. 1 Not Available [facility] ([facility]) [address] [facility], [place], [address], 04/25/2024 14:37:23 04/18/20 24 04/19/2024 CBC WITH DIFFE RENTI AL/PL ATELE T NRBC RETAIL ACCOUNT REPRESENTATIVE Not Available [facility] ([facility]) [address] [facility], [place], [address], 04/25/2024 14:37:23 04/18/20 24 04/19/2024 CBC WITH DIFFE RENTI AL/PL ATELE T hematology comments: RETAIL ACCOUNT REPRESENTATIVE Not Available [facility] ([facility]) [address] [facility], [place], [address], 04/25/2024 14:37:23 04/18/20 24 04/19/2024 COMP. METAB OLIC PANEL (14) glucose 91 mg/dL 70-99 normal Not Available [facility] ([facility]) [address] [facility], [place], [address], 04/25/2024 14:37:24 04/18/20 24 04/19/2024 COMP. METAB OLIC PANEL (14) BUN 8 mg/dL 6-24 normal Not Available [facility] ([facility]) [address] [facility], [place], [address], 04/25/2024 14:37:24 04/18/20 24 04/19/2024 COMP. METAB OLIC PANEL (14) creatinine 0.76 mg/dL 0.57-1 .00 normal Not Available [facility] ([facility]) [address], [place], [address], 04/25/2024 14:37:24 04/18/20 24 04/19/2024 COMP. METAB OLIC PANEL (14) eGFR 102 mL/mi n/1.7 3 >59 normal Not Available [facility] ([facility]) [address] [place], [address], 04/25/2024 14:37:24 04/18/20 24 04/19/2024 COMP. METAB OLIC PANEL (14) BUN/creatini ne ratio 11 9-23 normal Not Available [facility] ([facility]) [address] [facility], [place], [address], 04/25/2024 14:37:24 04/18/20 24 04/19/2024 COMP. METAB OLIC PANEL (14) sodium 141 mmol/ L 134-14 4 normal Not Available [facility] ([facility]) [address] [place], [address], 04/25/2024 14:37:24 04/18/20 24 04/19/2024 COMP. METAB OLIC PANEL (14) potassium 4.1 mmol/ L 3.5-5. 2 normal Not Available [facility] ([place] [facility]) [address] [facility] [place], [address], 04/25/2024 14:37:24 04/18/20 24 04/19/2024 COMP. METAB OLIC PANEL (14) chloride 106 mmol/ L 96-106 normal Not Available [facility] ([facility]) [address] [facility] [place], [address], 04/25/2024 14:37:24 04/18/20 24 04/19/2024 COMP. METAB OLIC PANEL (14) carbon dioxide, total 22 mmol/ L 20-29 normal Not Available [facility] ([facility]) [address] [facility] [place] [place], [address], 04/25/2024 14:37:24 04/18/20 24 04/19/2024 COMP. METAB OLIC PANEL (14) calcium 9.0 mg/dL 8.7-10 .2 normal Not Available [facility] ([facility]) [address] [place], [address], 04/25/2024 14:37:24 04/18/20 24 04/19/2024 COMP. METAB OLIC PANEL (14) protein, total 6.8 g/dL 6.0-8. 5 normal Not Available [facility] ([facility]) [address] [place], [address], 04/25/2024 14:37:24 04/18/20 24 04/19/2024 COMP. METAB OLIC PANEL (14) albumin 4.2 g/dL 3.9-4. 9 normal Not Available [facility] ([facility]) [address] [place], [address], 04/25/2024 14:37:24 04/18/20 24 04/19/2024 COMP. METAB OLIC PANEL (14) globulin, total 2.6 g/dL 1.5-4. 5 Not Available [facility] ([facility]) [address] [place], [address], 04/25/2024 14:37:24 04/18/20 24 04/19/2024 COMP. METAB OLIC PANEL (14) bilirubin, total 0.5 mg/dL 0.0-1. 2 normal Not Available [facility] ([facility]) [address] [place], [address], 04/25/2024 14:37:24 04/18/20 24 04/19/2024 COMP. METAB OLIC PANEL (14) alkaline phosphatase 90 IU/L 44-121 normal Not Available [facility] ([facility]) [address] [place], [address], 04/25/2024 14:37:24 04/18/20 24 04/19/2024 COMP. METAB OLIC PANEL (14) AST (SGOT) 33 IU/L 0-40 normal Not Available [facility] ([facility]) [address] [facility], [place], [address], 04/25/2024 14:37:24 04/18/20 24 04/19/2024 COMP. METAB OLIC PANEL (14) ALT (SGPT) 36 IU/L 0-32 above high normal Not Available [facility] ([facility]) [address] [place], [address], 04/25/2024 14:37:24 04/18/20 24 04/19/2024 LIPID PANEL cholesterol, total 159 mg/dL 100-19 9 normal Not Available [facility] ([facility]) [address] [place], [address], 04/25/2024 14:37:26 04/18/20 24 04/19/2024 LIPID PANEL triglyceride s 154 mg/dL 0-149 above high normal Not Available [facility] ([facility]) [address] [place], [address], 04/25/2024 14:37:26 04/18/20 24 04/19/2024 LIPID PANEL HDL cholesterol 39 mg/dL >39 below low normal Not Available [facility] ([facility]) [address] [place], [address], 04/25/2024 14:37:26 04/18/20 24 04/19/2024 LIPID PANEL VLDL cholesterol leah 27 mg/dL 5-40 Not Available [facility] ([facility]) [address] [place], [address], 04/25/2024 14:37:26 04/18/20 24 04/19/2024 LIPID PANEL LDL chol calc ([facility]) 93 mg/dL 0-99 Not Available [facility] ([facility]) [address] [facility], [place], [address], 04/25/2024 14:37:26 04/18/20 24 04/19/2024 LIPID PANEL LDL calc comment: RETAIL ACCOUNT REPRESENTATIVE Not Available [facility] ([facility]) [address] [facility], [place], [address], 04/25/2024 14:37:26 04/18/20 24 04/21/2024 VITAM IN E vitamin E(alpha tocopherol) 9.2 mg/L 7.0-25 .1 Not Available [facility] ([facility]) [address] [facility], [place], [address], 04/25/2024 14:37:27 04/18/20 24 04/21/2024 VITAM IN [...] in E defic ient. Not Available [facility] ([facility]) [address] [facility], [place], [address], 04/25/2024 14:37:27 04/18/20 24 04/19/2024 HEMOG LOBIN A1C hemoglobin A1C 5.3 % 4.8-5. 6 normal Predi abete s: 5.7 - 6.4 Diabe antonette: >6.4 Glyce marisela contr ol for adult s with diabe antonette: <7.0 Not Available [facility] ([facility]) [address] [facility], [place], [address], 04/25/2024 14:37:28 04/18/20 24 04/19/2024 FOLAT E (FOLI C ACID) , SERUM folate (folic acid), serum 13.0 NG/mL >3.0 normal A serum folat e joshua ntrat ion of less than 3.1 ng/mL is consi dered to repre sent clini leah defic iency . Not Available [facility] ([facility]) [address] [facility], [place], [address], 04/25/2024 14:37:29 04/18/20 24 04/21/2024 VITAM IN [...] Drug Admin istra tion. Not Available [facility] ([facility]) [address] [facility], [place], [address], 04/25/2024 14:37:31 04/18/20 24 04/19/2024 VITAM IN [...] Emma moore [place]: [facility] Press . 2. Yang greene MF, María chiang [place], Cyrus off-F errar i HO, et al. Evalu ation , treat ment, and preve ntion of vitam in D defic iency : an Endoc rine Socie ty clini leah pract ice guide line. JCEM. 2010; 96(7) :1911 -30. Not Available [facility] ([facility]) [address] [facility], [place], [address], 04/25/2024 14:37:32 04/18/20 24 04/22/2024 VITAM IN B1 (THIA MINE) , BLOOD vit. B1, whole blood 153.0 nmol/ L 66.5-2 00.0 Not Available [facility] ([facility]) [address] [facility], [place], [address], 04/25/2024 14:37:33 04/18/20 24 04/24/2024 METHY LMALO MARGARET ACID, SERUM methylmaloni c acid, serum 176 nmol/ L 0-378 Not Available [facility] ([facility]) [address] [facility], [place], [address], 04/25/2024 14:37:35 04/18/20 24 04/21/2024 COPPE R, SERUM OR PLASM A copper, serum or plasma 129 ug/dL 80-158 Detec tion Limit = 5 Not Available [facility] ([facility]) [address] [facility], [place], [address], 04/25/2024 14:37:36 04/18/20 24 04/21/2024 ZINC, PLASM A OR SERUM zinc, plasma or serum 82 ug/dL 44-115 normal Detec tion Limit = 5 Not Available [facility] ([facility]) [address] [place], [address], 04/25/2024 14:37:37 04/18/20 24 04/19/2024 PREAL BUMIN prealbumin 15 mg/dL 14-35 Not Available [facility] ([facility]) [address] [place], [address], 04/25/2024 14:37:38 04/18/20 24 04/25/2024 SELEN IUM, BLOOD selenium, blood 139 ug/L 100-34 0 Detec tion Limit = 10 Not Available [facility] ([facility]) [address] [place], [address], 04/25/2024 14:37:39 07/20/19 25 07/21/2024 FE+TI BC+FE R iron bind.cap.(TI BC) 290 ug/dL 250-45 0 normal Not Available [facility] ([facility]) [address] [place], [address], 07/27/2024 18:36:43 07/20/19 25 07/21/2024 FE+TI BC+FE R UIBC 228 ug/dL 131-42 5 normal Not Available [facility] ([facility]) [address] [place], [address], 07/27/2024 18:36:43 07/20/19 25 07/21/2024 FE+TI BC+FE R iron 62 ug/dL 27-159 normal Not Available [facility] ([facility]) [address] [place], [address], 07/27/2024 18:36:43 07/20/19 25 07/21/2024 FE+TI BC+FE R iron saturation 21 % 15-55 normal Not Available [facility] ([facility]) [address] [place], [address], 07/27/2024 18:36:43 07/20/19 25 07/21/2024 FE+TI BC+FE R ferritin 49 NG/mL 15-150 normal Not Available [facility] ([facility]) [address] [place], [address], 07/27/2024 18:36:43 07/20/19 25 07/21/2024 TSH+F REE T4 TSH 2.930 uIU/m L 0.450- 4.500 normal Not Available [facility] ([facility]) [address] [place], [address], 07/27/2024 18:36:44 07/20/19 25 07/21/2024 TSH+F REE T4 T4,free(dire ct) 1.21 NG/dL 0.82-1 .77 normal Not Available [facility] ([facility]) [address] [place], [address], 07/27/2024 18:36:44 07/20/19 25 07/21/2024 CBC WITH DIFFE RENTI AL/PL ATELE T WBC 6.3 x10e3 /uL 3.4-10 .8 normal Not Available [facility] ([facility]) [address] [place], [address], 07/27/2024 18:36:45 07/20/19 25 07/21/2024 CBC WITH DIFFE RENTI AL/PL ATELE T RBC 4.24 x10e6 /uL 3.77-5 .28 normal Not Available [facility] ([facility]) [address] [place], [address], 07/27/2024 18:36:45 07/20/19 25 07/21/2024 CBC WITH DIFFE RENTI AL/PL ATELE T hemoglobin 12.0 g/dL 11.1-1 5.9 normal Not Available [facility] ([facility]) [address] [place], [address], 07/27/2024 18:36:45 07/20/19 25 07/21/2024 CBC WITH DIFFE RENTI AL/PL ATELE T hematocrit 36.9 % 34.0-4 6.6 normal Not Available [facility] ([facility]) [address] [place], [address], 07/27/2024 18:36:45 07/20/19 25 07/21/2024 CBC WITH DIFFE RENTI AL/PL ATELE T MCV 87 fL 79-97 normal Not Available [facility] ([facility]) [address] [place], [address], 07/27/2024 18:36:45 07/20/19 25 07/21/2024 CBC WITH DIFFE RENTI AL/PL ATELE T MCH 28.3 pg 26.6-3 3.0 normal Not Available [facility] ([facility]) [address] [place], [address], 07/27/2024 18:36:45 07/20/19 25 07/21/2024 CBC WITH DIFFE RENTI AL/PL ATELE T MCHC 32.5 g/dL 31.5-3 5.7 normal Not Available [facility] ([facility]) [address] [place], [address], 07/27/2024 18:36:45 07/20/19 25 07/21/2024 CBC WITH DIFFE RENTI AL/PL ATELE T RDW 13.0 % 11.7-1 5.4 Not Available [facility] ([facility]) [address] [place], [address], 07/27/2024 18:36:45 07/20/19 25 07/21/2024 CBC WITH DIFFE RENTI AL/PL ATELE T platelets 237 x10e3 /uL 150-45 0 normal Not Available [facility] ([facility]) [address] [place], [address], 07/27/2024 18:36:45 07/20/19 25 07/21/2024 CBC WITH DIFFE RENTI AL/PL ATELE T neutrophils 55 % not estab. normal Not Available [facility] ([facility]) [address] [place], [address], 07/27/2024 18:36:45 07/20/19 25 07/21/2024 CBC WITH DIFFE RENTI AL/PL ATELE T lymphs 34 % not estab. normal Not Available [facility] ([facility]) [address] [facility], [place], [address], 07/27/2024 18:36:45 07/20/19 25 07/21/2024 CBC WITH DIFFE RENTI AL/PL ATELE T monocytes 8 % not estab. normal Not Available [facility] ([facility]) [address] [facility], [place], [address], 07/27/2024 18:36:45 07/20/19 25 07/21/2024 CBC WITH DIFFE RENTI AL/PL ATELE T eos 2 % not estab. normal Not Available [facility] ([facility]) [address] [facility], [place], [address], 07/27/2024 18:36:45 07/20/19 25 07/21/2024 CBC WITH DIFFE RENTI AL/PL ATELE T basos 1 % not estab. normal Not Available [facility] ([facility]) [address] [facility], [place], [address], 07/27/2024 18:36:45 07/20/19 25 07/21/2024 CBC WITH DIFFE RENTI AL/PL ATELE T immature cells RETAIL ACCOUNT REPRESENTATIVE Not Available [facility] ([facility]) [address] [place], [address], 07/27/2024 18:36:45 07/20/19 25 07/21/2024 CBC WITH DIFFE RENTI AL/PL ATELE T neutrophils (absolute) 3.5 x10e3 /uL 1.4-7. 0 normal Not Available [facility] ([facility]) [address] [place], [address], 07/27/2024 18:36:45 07/20/19 25 07/21/2024 CBC WITH DIFFE RENTI AL/PL ATELE T lymphs (absolute) 2.2 x10e3 /uL 0.7-3. 1 normal Not Available [facility] ([facility]) [address] [facility], [place], [address], 07/27/2024 18:36:45 07/20/19 25 07/21/2024 CBC WITH DIFFE RENTI AL/PL ATELE T monocytes(ab solute) 0.5 x10e3 /uL 0.1-0. 9 normal Not Available [facility] ([facility]) [address] [facility], [place], [address], 07/27/2024 18:36:45 07/20/19 25 07/21/2024 CBC WITH DIFFE RENTI AL/PL ATELE T eos (absolute) 0.1 x10e3 /uL 0.0-0. 4 normal Not Available [facility] ([facility]) [address] [facility], [place], [address], 07/27/2024 18:36:45 07/20/19 25 07/21/2024 CBC WITH DIFFE RENTI AL/PL ATELE T baso (absolute) 0.1 x10e3 /uL 0.0-0. 2 normal Not Available [facility] ([facility]) [address] [place], [address], 07/27/2024 18:36:45 07/20/19 25 07/21/2024 CBC WITH DIFFE RENTI AL/PL ATELE T immature granulocytes 0 % not estab. Not Available [facility] ([facility]) [address] [facility], [place], [address], 07/27/2024 18:36:45 07/20/19 25 07/21/2024 CBC WITH DIFFE RENTI AL/PL ATELE T immature grans (abs) 0.0 x10e3 /uL 0.0-0. 1 Not Available [facility] ([facility]) [address] [place], [address], 07/27/2024 18:36:45 07/20/19 25 07/21/2024 CBC WITH DIFFE RENTI AL/PL ATELE T NRBC RETAIL ACCOUNT REPRESENTATIVE Not Available [facility] ([facility]) [address] [facility], [place], [address], 07/27/2024 18:36:45 07/20/19 25 07/21/2024 CBC WITH DIFFE DEVEN AL/PL ATELE T hematology comments: RETAIL ACCOUNT REPRESENTATIVE Not Available [facility] ([facility]) [address] [facility], [place], [address], 07/27/2024 18:36:45 07/20/19 25 07/21/2024 COMP. METAB OLIC PANEL (14) glucose 84 mg/dL 70-99 normal Not Available [facility] ([facility]) [address] [facility], [place], [address], 07/27/2024 18:36:46 07/20/19 25 07/21/2024 COMP. METAB OLIC PANEL (14) BUN 10 mg/dL 6-24 normal Not Available [facility] ([facility]) [address] [facility], [place], [address], 07/27/2024 18:36:46 07/20/19 25 07/21/2024 COMP. METAB OLIC PANEL (14) creatinine 0.76 mg/dL 0.57-1 .00 normal Not Available [facility] ([facility]) [address] [facility], [place], [address], 07/27/2024 18:36:46 07/20/19 25 07/21/2024 COMP. METAB OLIC PANEL (14) eGFR 101 mL/mi n/1.7 3 >59 normal Not Available [facility] ([facility]) [address] [facility] [place], [address], 07/27/2024 18:36:46 07/20/19 25 07/21/2024 COMP. METAB OLIC PANEL (14) BUN/creatini ne ratio 13 9-23 normal Not Available [facility] ([facility]) [address] [facility], [place], [address], 07/27/2024 18:36:46 07/20/19 25 07/21/2024 COMP. METAB OLIC PANEL (14) sodium 140 mmol/ L 134-14 4 normal Not Available [facility] ([facility]) [address] [facility] [place] [place], [address], 07/27/2024 18:36:46 07/20/19 25 07/21/2024 COMP. METAB OLIC PANEL (14) potassium 4.5 mmol/ L 3.5-5. 2 normal Not Available [facility] ([facility]) [address] [facility] [place], [address], 07/27/2024 18:36:46 07/20/19 25 07/21/2024 COMP. METAB OLIC PANEL (14) chloride 105 mmol/ L 96-106 normal Not Available [facility] ([facility]) [address] [facility] [place], [address], 07/27/2024 18:36:46 07/20/19 25 07/21/2024 COMP. METAB OLIC PANEL (14) carbon dioxide, total 22 mmol/ L 20-29 normal Not Available [facility] ([facility]) [address] [facility] [place] [place], [address], 07/27/2024 18:36:46 07/20/19 25 07/21/2024 COMP. METAB OLIC PANEL (14) calcium 9.4 mg/dL 8.7-10 .2 normal Not Available [facility] ([facility]) [address] [facility] [place], [address], 07/27/2024 18:36:46 07/20/19 25 07/21/2024 COMP. METAB OLIC PANEL (14) protein, total 6.9 g/dL 6.0-8. 5 normal Not Available [facility] ([facility]) [address] [facility] [place], [address], 07/27/2024 18:36:46 07/20/19 25 07/21/2024 COMP. METAB OLIC PANEL (14) albumin 4.3 g/dL 3.9-4. 9 normal Not Available [facility] ([facility]) [address] [place], [address], 07/27/2024 18:36:46 07/20/19 25 07/21/2024 COMP. METAB OLIC PANEL (14) globulin, total 2.6 g/dL 1.5-4. 5 Not Available [facility] ([facility]) [address] [place], [address], 07/27/2024 18:36:46 07/20/19 25 07/21/2024 COMP. METAB OLIC PANEL (14) bilirubin, total 0.7 mg/dL 0.0-1. 2 normal Not Available [facility] ([facility]) [address] [place], [address], 07/27/2024 18:36:46 07/20/19 25 07/21/2024 COMP. METAB OLIC PANEL (14) alkaline phosphatase 78 IU/L 44-121 normal Not Available [facility] ([facility]) [address] [place], [address], 07/27/2024 18:36:46 07/20/19 25 07/21/2024 COMP. METAB OLIC PANEL (14) AST (SGOT) 19 IU/L 0-40 normal Not Available [facility] ([facility]) [address] [place], [address], 07/27/2024 18:36:46 07/20/19 25 07/21/2024 COMP. METAB OLIC PANEL (14) ALT (SGPT) 16 IU/L 0-32 normal Not Available [facility] ([facility]) [address] [place], [address], 07/27/2024 18:36:46 07/20/19 25 07/21/2024 LIPID PANEL cholesterol, total 153 mg/dL 100-19 9 normal Not Available [facility] ([facility]) [address] [place], [address], 07/27/2024 18:36:48 07/20/19 25 07/21/2024 LIPID PANEL triglyceride s 116 mg/dL 0-149 normal Not Available [facility] ([facility]) [address] [place], [address], 07/27/2024 18:36:48 07/20/19 25 07/21/2024 LIPID PANEL HDL cholesterol 45 mg/dL >39 normal Not Available [facility] ([facility]) [address] [place], [address], 07/27/2024 18:36:48 07/20/19 25 07/21/2024 LIPID PANEL VLDL cholesterol leah 21 mg/dL 5-40 Not Available [facility] ([facility]) [address] [place], [address], 07/27/2024 18:36:48 07/20/19 25 07/21/2024 LIPID PANEL LDL chol calc ([facility]) 87 mg/dL 0-99 Not Available [facility] ([facility]) [address] [place], [address], 07/27/2024 18:36:48 07/20/19 25 07/21/2024 LIPID PANEL LDL calc comment: RETAIL ACCOUNT REPRESENTATIVE Not Available [facility] ([facility]) [address] [place], [address], 07/27/2024 18:36:48 07/20/19 25 07/26/2024 VITAM IN E vitamin E(alpha tocopherol) 9.2 mg/L 7.0-25 .1 Not Available [facility] ([facility]) [address] [place], [address], 07/27/2024 18:36:48 07/20/19 25 07/26/2024 VITAM IN [...] in E defic ient. Not Available [facility] ([facility]) [address] [facility], [place], [address], 07/27/2024 18:36:48 07/20/19 25 07/21/2024 HEMOG LOBIN A1C hemoglobin A1C 5.0 % 4.8-5. 6 normal Predi abete s: 5.7 - 6.4 Diabe antonette: >6.4 Glyce marisela contr ol for adult s with diabe antonette: <7.0 Not Available [facility] ([facility]) [address] [facility], [place], [address], 07/27/2024 18:36:49 07/20/19 25 07/21/2024 FOLAT E (FOLI C ACID) , SERUM folate (folic acid), serum 19.7 NG/mL >3.0 normal A serum folat e joshua ntrat ion of less than 3.1 ng/mL is consi dered to repre sent clini leah defic iency . Not Available [facility] ([facility]) [address] [facility], [place], [address], 07/27/2024 18:36:51 07/20/19 25 07/26/2024 VITAM IN [...] Drug Admin istra tion. Not Available [facility] ([facility]) [address] [facility], [place], [address], 07/27/2024 18:36:51 07/20/19 25 07/21/2024 VITAM IN [...] and D. Emma moore [place]: [facility] Press . 2. Yang greene MF, María chiang [place], Cyrus off-F errar i HO, et al. Evalu ation , treat ment, and preve ntion of vitam in D defic iency : an Endoc rine Socie ty clini leah pract ice guide line. JCEM. 2010; 96(7) :1911 -30. Not Available [facility] ([facility]) [address] [facility], [place], [address], 07/27/2024 18:36:52 07/20/19 25 07/27/2024 VITAM IN B1 (THIA MINE) , BLOOD vit. B1, whole blood 186.3 nmol/ L 66.5-2 00.0 Not Available [facility] ([facility]) [address] [facility], [place], [address], 07/27/2024 18:36:53 07/20/19 25 07/25/2024 METHY LMALO MARGARET ACID, SERUM methylmaloni c acid, serum 157 nmol/ L 0-378 Not Available [facility] ([facility]) [address] [place], [address], 07/27/2024 18:36:54 07/20/19 25 07/26/2024 COPPE R, SERUM OR PLASM A copper, serum or plasma 136 ug/dL 80-158 Detec tion Limit = 5 Not Available [facility] ([facility]) [address] [place], [address], 07/27/2024 18:36:55 07/20/19 25 07/26/2024 ZINC, PLASM A OR SERUM zinc, plasma or serum 55 ug/dL 44-115 normal Detec tion Limit = 5 Not Available [facility] ([facility]) [address] [place], [address], 07/27/2024 18:36:56 07/20/19 25 07/21/2024 PREAL BUMIN prealbumin 16 mg/dL 12-34 Not Available [facility] Lab) [address] [place], [address], 07/27/2024 18:36:57 07/20/19 25 07/27/2024 SELEN IUM, BLOOD selenium, blood 135 ug/L 100-34 0 Detec tion Limit = 10 Not Available [facility] ([facility]) [address] [place], [address], 07/27/2024 18:36:58 01/31/20 24 01/05/2024 CPAP compl iance * No observ ation record ed. [email or web address] Not Available 01/30 17:05:06 Result Notes None recorded. 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 Active 2022 CORAZON [place] - [place] 3 15:19:38 Obesity 175538967 Active 2022 Pearl Sen null, [place] - [facility] - [place] 3 15:19:45 Essential hypertensi on 27366508 Active 2022 Pearl Sen null, [place] [facility] [place] 3 15:19:54 Asthma 816237801 Active 2022 Pearl Sen null, [place] [facility] [place] 3 15:19:59 Obstructiv e sleep apnea syndrome 91306917 Active 2022 Nomi Mitchell MD [address] [facility] [address] , [place] - [facility] - [place] 3 15:34:38 Severe obesity 4129765548092 4 Active 2022 Nomi Mitchell MD [address] [facility] [address] , [place] - [facility] - [place] 3 15:40:49 Disorder of function of stomach 479330455 Active 2023 CINTHIA YORK NP [address] [facility] [address] , [place] - [facility] & [place] 4 08:23:47 Pre-surger y testing Active 2023 CINTHIA YORK NP [address] [place], [address] , [place] - [facility] & [place] 4 09:00:21 Gastroesop hageal reflux disease 527430553 Active 2023 CINTHIA YORK NP [address] [address] [facility] [address] , [place] - [facility] - [place] 4 10:17:59 Intentiona l weight loss 205747523 Active 2023 HERVE Cedeno [address] [address] [facility] [address] , [place] - [facility] - [place] 10:20:52 Morbid obesity 901405710 Active 2023 Jose Cisneros, DNP, MINI LAB OPERATOR, RETAIL ACCOUNT REPRESENTATIVE-C [address], [place], [address] , [place] [facility] [place] 15:06:45 Problem Notes None recorded. Procedures Surgical History Date Name Laterality Status Provider Name and Address Organization Details Recorded Time 02/03/20 24 destruction of lesion of heart completed Jhoana Mendoza [place] [facility] [place] 04/18/2024 15:09:17 01/13/20 24 bariatric operative procedure completed Parvin Sofia [place] [facility] - [place] 01/31/2024 16:28:29 12/15/19 23 Date of Last Pap Smear completed Maritza Conner [place] [facility] [place] 08/23/2023 15:13:07 06/14/19 05 section completed LEELEE YORK NP [address], [place], [address], [place] [facility] [place] 07/29/2023 10:20:36 06/14/19 05 Other completed Maritza Ubaldo [place] [facility] [place] 08/23/2023 15:13:21 06/14/18 86 procedure on wrist completed LEELEE YORK NP [address], [place], [address], [place] [facility] [place] 07/29/2023 10:20:52 06/14/18 86 Other completed Maritzaher Conner [place] [facility] [place] 08/23/2023 15:13:21 extraction of wisdom tooth completed Olivia Byers [place] [facility] [place] 07/26/2023 14:28:05 procedure on duodenum completed Sanchez Berkowitz [place] [facility] [place] 01/18/2024 08:14:28 Imaging Results Imaging Date Name Status [facility] Details LastModified Time 01/05/2024 CPAP compliance * [...] Available Vitals Date Recorded Body height Body mass index (BMI) Body weight Body temperature Heart rate Systolic blood pressure Diastolic blood pressure Provider Name and Address Organization Details Last Updated DateTime 4 176.02 cm 56.1 kg/m2 257836. 6 g 98.1 [degF] 61 /min 131 mm[Hg] 83 mm[Hg] Jhoana PETTY [facility] & [place] 4 15:08:04 Date Recorded Body height Body temperature Heart rate Body mass index (BMI) Body weight Systolic blood pressure Diastolic blood pressure Provider Name and Address Organization Details Last Updated DateTime 4 176.02 cm 98.1 [degF] 63 /min 52 kg/m2 946933. 09 g 158 mm[Hg] 86 mm[Hg] Jhoana PETTY [facility] & [place] 4 15:09:49 Date Recorded Body height Body temperature Heart rate Body mass index (BMI) Body weight Systolic blood pressure Diastolic blood pressure Provider Name and Address Organization Details Last Updated DateTime 5 176.02 cm 97.9 [degF] 66 /min 49.2 kg/m2 805621. 4 g 156 mm[Hg] 73 mm[Hg] Jhoana PETTY [facility] & [place] 5 15:08:33 Date Recorded Body height Body temperature Heart rate Body mass index (BMI) Body weight Systolic blood pressure Diastolic blood pressure Provider Name and Address Organization Details Last Updated DateTime 5 176.02 cm 97.3 [degF] 60 /min 46.8 kg/m2 110545. 56 g 150 mm[Hg] 88 mm[Hg] Jhoana PETTY [facility] & [place] 5 14:49:36 Social History Question Answer Notes LastModified by Organizat ion Details LastModified Time Tobacco Smoking Status Former Smoker Pearl Galvezeze alcazar CORAZON [facility] & [place] 07/17/2022 15:19:20 Do You Have An Advance Directive? No Information not available 08/23/2023 Are You Blind Or Do You Have Difficulty Seeing? No Information not available 08/23/2023 What Type Of Diet Are You Following? REGULAR Information not available 07/29/2023 When Did You Quit Smoking? 1-5yearssinc elastcigaret te [email or web address] Information not available 07/29/2023 What Was The [...] anxious, or unable to sleep at night)? [id number] Information not available 08/23/2023 Family History Relationship Description Onset Age of this Age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
[2024-10-30 18:40] LABS: HCG,Quantitative < 2 mIU/ml (0-5.42)
== END 2024-10-30 23:59 | disposition home or self-care (01) ==
LOC: LAB 16:19
PROVIDERS: PCP Nurse Practitioner; Visit Provider Nurse Practitioner Obstetrics & Gynecology
DX: N92.6 Irregular menstruation, unspecified (principal)
CPT/HCPCS: 36415; 84702